=== PATIENT | female | born 1965 | race Caucasian/White ===

== ENCOUNTER 2020-09-08 09:21 | Outpatient (REF) | payer OTHER, SELFPAY ==
[2020-09-08 09:59] LABS: MANUAL DIFF FLAG NO
[2020-09-08 10:11] LABS: Basophils Percent Auto 0.4 % (0-2); Eosinophils Absolute Auto 0.1 X10*3/uL (0.0-0.4); Eosinophils Percent Auto 1.7 % (0-4); Hematocrit 40.7 % (37-47); Hemoglobin 13.3 g/dl (12.0-16.0); Imm Gran Abs Auto 0.02 X10*3/uL (0.00-0.03); Imm Gran Pct Auto 0.4 % (0.0-0.4); Lymphocytes Absolute Auto 2.1 X10*3/uL (1.2-4.9); Lymphocytes Percent Auto 39.9 % (20-40); Mean Corpuscular HGB Conc 32.7 g/dl (31.0-35.0); Mean Corpuscular Hemoglobin 32.4 pg (27.0-33.0); Mean Corpuscular Volume 99.3 fL (80-98); Mean Platelet Volume 9.7 fL (9.4-12.3); Monocytes Absolute Auto 0.3 X10*3/uL (0.1-1.2); Monocytes Percent Auto 6.3 % (2-11); Neutrophils Absolute Auto 2.8 X10*3/uL (2.0-8.3); Neutrophils Percent Auto 51.3 % (45-73); Platelet Count 217 X10*3/uL (160-400); Red Cell Distribution Width 11.5 % (11.0-16.0); White Blood Count 5.4 X10*3/uL (4.8-10.8)
[2020-09-08 10:13] LABS: Estimated Average Glucose 105 mg/dL; Hemoglobin A1c % 5.3 %
[2020-09-08 10:49] LABS: Alanine Aminotransferase 38 U/L (0-31); Albumin Level 4.5 g/dL (3.5-5.0); Alkaline Phosphatase 73 U/L (39-117); Anion Gap 13 (12-20); Aspartate Amino Transferase 22 U/L (5-31); Bilirubin Total 0.7 mg/dL (0.0-1.0); Blood Urea Nitrogen 20 mg/dL (9-16); Carbon Dioxide 28 mmol/L (22-29); Chloride 105 mmol/L (96-108); Cholesterol 175 mg/dL; Estimated Glomerular Filt Rate > 60; Glucose Fasting 107 mg/dL (60-99); HDL Cholesterol 52 mg/dL; LDL Cholesterol Calculated 108 mg/dl; Potassium 4.5 mmol/l (3.3-5.1); Sodium 141 mmol/L (135-145); Total Protein 6.9 g/dL (6.5-8.0); Triglycerides 79 mg/dL
[2020-09-08 11:11] LABS: TSH reflex Free T4 1.04 mIU/mL (0.32-4.0)
== END 2020-09-08 09:22 | disposition home or self-care (01) ==
LOC: HO.LAB 09:21
PROVIDERS: PCP Internal Medicine; Visit Provider Internal Medicine
DX: E78.00 Pure hypercholesterolemia, unspecified (principal); R73.01 Impaired fasting glucose; J45.40 Moderate persistent asthma, uncomplicated; E66.3 Overweight
CPT/HCPCS: 36415; 80053; 80061; 83036; 84443; 85025

== ENCOUNTER 2020-09-17 15:13 | Outpatient (REF) | payer OTHER, SELFPAY ==
--- NOTE | 2020-09-17 15:19 | XR_ITS ---
EXAMINATION: XR CHEST CLINICAL INFORMATION: Chest pain with breathing COMPARISON: Chest radiographs 11/12/2017, 03/13/2017, CT abdomen 07/09/2019 TECHNIQUE: 2 views of the chest were obtained. FINDINGS: The lungs are clear. There is no pneumothorax, pleural reaction, airspace consolidation, or effusion. The heart is normal in size. The vascularity is normal. Convexity right cardiophrenic angle is stable from prior studies and consistent with areolar tissue on CT. The hilar and mediastinal contours are normal. There is no acute bony abnormality. XR/XR chest 2V IMPRESSION: Unremarkable examination.
== END 2020-09-17 15:14 | disposition home or self-care (01) ==
LOC: HO.HMGCX 15:13
PROVIDERS: PCP Internal Medicine; Visit Provider Internal Medicine
DX: R07.1 Chest pain on breathing (principal)
CPT/HCPCS: 71046

== ENCOUNTER 2020-11-17 10:39 | Outpatient (REF) | payer OTHER, SELFPAY ==
--- NOTE | 2020-11-17 10:44 | MM_ITS ---
EXAMINATION: MM SCREENING DIGITAL BREAST TOMOSYNTHESIS, BILATERAL CLINICAL INFORMATION: Screening. Asymptomatic. The lifetime risk of breast cancer based on the Tyrer-Cuzick Model is 9%. COMPARISON: Mammography: 03/18/2019, 02/12/2018, 01/24/2017 TECHNIQUE: Digital breast tomosynthesis is performed in both the craniocaudal and mediolateral oblique views along with computer-aided detection (CAD). Synthesized 2D images are generated from the tomosynthesis. FINDINGS: There are scattered areas of fibroglandular density (ACR BI-RADS breast composition Category b). Breast tissue composition borders on predominantly fatty. The background stromal and fibroglandular densities are stable. There is no interval mass or architectural abnormality or abnormal calcifications. The axilla and skin contours are unremarkable. MM/MM tomosynthesis screening BI IMPRESSION: No mammographic evidence of malignancy. ASSESSMENT: BI-RADS 1: Negative RECOMMENDATION: Routine annual mammography screening. This patient's information was entered into a reminder system with a target due date for their next mammogram.
== END 2020-11-17 10:40 | disposition home or self-care (01) ==
LOC: HO.MAMMO 10:39
PROVIDERS: PCP Internal Medicine; Visit Provider Internal Medicine
DX: Z12.31 Encounter for screening mammogram for malignant neoplasm of breast (principal)
CPT/HCPCS: 77063; 77067

== ENCOUNTER 2020-12-21 08:09 | Outpatient (REF) | payer OTHER, SELFPAY ==
[2020-12-21 11:12] LABS: MANUAL DIFF FLAG NO
[2020-12-21 11:34] LABS: Basophils Percent Auto 0.7 % (0-2); Eosinophils Absolute Auto 0.1 X10*3/uL (0.0-0.4); Eosinophils Percent Auto 1.6 % (0-4); Hematocrit 39.4 % (37-47); Hemoglobin 12.9 g/dl (12.0-16.0); Imm Gran Abs Auto 0.01 X10*3/uL (0.00-0.03); Imm Gran Pct Auto 0.2 % (0.0-0.4); Lymphocytes Percent Auto 45.7 % (20-40); Mean Corpuscular HGB Conc 32.7 g/dl (31.0-35.0); Mean Corpuscular Hemoglobin 32.6 pg (27.0-33.0); Mean Corpuscular Volume 99.5 fL (80-98); Mean Platelet Volume 10.2 fL (9.4-12.3); Monocytes Absolute Auto 0.3 X10*3/uL (0.1-1.2); Monocytes Percent Auto 6.8 % (2-11); Platelet Count 215 X10*3/uL (160-400); Red Blood Count 3.96 X10*6/uL (4.20-5.50); Red Cell Distribution Width 11.8 % (11.0-16.0); White Blood Count 4.4 X10*3/uL (4.8-10.8)
[2020-12-21 11:47] LABS: Alanine Aminotransferase 45 U/L (0-31); Albumin Level 4.5 g/dL (3.5-5.0); Alkaline Phosphatase 69 U/L (39-117); Anion Gap 13 (12-20); Aspartate Amino Transferase 26 U/L (5-31); Bilirubin Total 0.8 mg/dL (0.0-1.0); Blood Urea Nitrogen 27 mg/dL (9-16); Calcium 8.9 mg/dL (8.4-10.2); Carbon Dioxide 27 mmol/L (22-29); Chloride 105 mmol/L (96-108); Cholesterol 190 mg/dL; Estimated Glomerular Filt Rate > 60; Glucose Fasting 110 mg/dL (60-99); HDL Cholesterol 54 mg/dL; LDL Cholesterol Calculated 115 mg/dl; Potassium 4.2 mmol/L (3.3-5.1); Sodium 141 mmol/L (135-145); Triglycerides 106 mg/dL
== END 2020-12-21 08:10 | disposition home or self-care (01) ==
LOC: HO.HMGCLDS 08:09
PROVIDERS: PCP Internal Medicine; Visit Provider Internal Medicine
DX: J45.40 Moderate persistent asthma, uncomplicated (principal); E78.00 Pure hypercholesterolemia, unspecified; R73.01 Impaired fasting glucose
CPT/HCPCS: 36415; 80053; 80061; 85025

== ENCOUNTER 2021-05-13 10:40 | Outpatient (REF) | payer OTHER, SELFPAY ==
[2021-05-13 13:49] LABS: MANUAL DIFF FLAG NO
[2021-05-13 13:53] LABS: Basophils Percent Auto 0.4 % (0-2); Eosinophils Absolute Auto 0.1 X10*3/uL (0.0-0.4); Eosinophils Percent Auto 1.8 % (0-4); Hematocrit 40.8 % (37-47); Hemoglobin 13.2 g/dl (12.0-16.0); Imm Gran Abs Auto 0.01 X10*3/uL (0.00-0.03); Imm Gran Pct Auto 0.2 % (0.0-0.4); Lymphocytes Absolute Auto 2.3 X10*3/uL (1.2-4.9); Lymphocytes Percent Auto 44.9 % (20-40); Mean Corpuscular HGB Conc 32.4 g/dl (31.0-35.0); Mean Corpuscular Hemoglobin 32.1 pg (27.0-33.0); Mean Corpuscular Volume 99.3 fL (80-98); Mean Platelet Volume 10.3 fL (9.4-12.3); Monocytes Absolute Auto 0.3 X10*3/uL (0.1-1.2); Monocytes Percent Auto 5.3 % (2-11); Neutrophils Absolute Auto 2.4 X10*3/uL (2.0-8.3); Neutrophils Percent Auto 47.4 % (45-73); Platelet Count 223 X10*3/uL (160-400); Red Blood Count 4.11 X10*6/uL (4.20-5.50); Red Cell Distribution Width 12.1 % (11.0-16.0); White Blood Count 5.1 X10*3/uL (4.8-10.8)
[2021-05-13 14:04] LABS: Estimated Average Glucose 111 mg/dL; Hemoglobin A1c % 5.5 %
[2021-05-13 14:22] LABS: Alanine Aminotransferase 50 U/L (0-31); Albumin Level 4.5 g/dL (3.5-5.0); Alkaline Phosphatase 73 U/L (39-117); Anion Gap 13 (12-20); Aspartate Amino Transferase 33 U/L (5-31); Bilirubin Total 0.6 mg/dL (0.0-1.0); Blood Urea Nitrogen 11 mg/dL (9-16); Calcium 9.4 mg/dL (8.4-10.2); Carbon Dioxide 24 mmol/L (22-29); Chloride 109 mmol/L (96-108); Cholesterol 182 mg/dL; Estimated Glomerular Filt Rate > 60; Glucose Fasting 111 mg/dL (60-99); HDL Cholesterol 51 mg/dL; LDL Cholesterol Calculated 114 mg/dl; Potassium 4.4 mmol/L (3.3-5.1); Sodium 142 mmol/L (135-145); Total Protein 6.9 g/dL (6.5-8.0); Triglycerides 88 mg/dL
== END 2021-05-13 10:41 | disposition home or self-care (01) ==
LOC: HO.HMGCLDS 10:40
PROVIDERS: PCP Internal Medicine; Visit Provider Internal Medicine
DX: E78.00 Pure hypercholesterolemia, unspecified (principal); J45.40 Moderate persistent asthma, uncomplicated; R73.01 Impaired fasting glucose
CPT/HCPCS: 36415; 80053; 80061; 83036; 85025

== ENCOUNTER 2021-06-11 12:52 | Outpatient (REF) | payer OTHER, SELFPAY | END 2021-06-11 12:53 | disposition home or self-care (01) | LOC: HO.LAB 12:52 | PROVIDERS: Visit Provider Nurse Practitioner Family | DX: Z20.822 Contact with and (suspected) exposure to COVID-19 (principal); J02.9 Acute pharyngitis, unspecified | CPT/HCPCS: U0003; U0005 ==

== ENCOUNTER 2021-08-21 13:25 | Outpatient (REF) | payer OTHER, SELFPAY ==
--- NOTE | 2021-08-21 14:00 | PFT_ITS ---
INDICATION: Asthma. SPIROMETRY: The FEV1 to FVC of 70% with an FEV1 of 2.77 L, which is 94% predicted, and an FVC of 3.95 L, which is 105% predicted. No significant response to bronchodilators noted. The patient does have evidence of small airways disease. LUNG VOLUMES: Total lung capacity 125% predicted with a residual volume of 153% predicted. DIFFUSION CAPACITY: DLCO 85% predicted. COMPARISONS: PFTs from 2018. INTERPRETATION: There is an obstructive ventilatory defect consistent mild COPD. No significant response to bronchodilators noted. Normal maximum voluntary ventilation. The patient does have significant air trapping and hyperinflation due to the COPD. Diffusion capacity is within normal limits. When compared to 2018, the patient has no significant change in the FVC, no significant change in the FEV1, significant increase in the total lung capacity, significant increase in the residual volume, and a trend decrease in the diffusion capacity. Clinical correlation warranted. MD SAHIL Correa/WINNIE / [id number]
== END 2021-08-21 13:26 | disposition home or self-care (01) ==
LOC: HO.RESP 13:25
PROVIDERS: PCP Internal Medicine; Visit Provider Internal Medicine
DX: J45.40 Moderate persistent asthma, uncomplicated (principal)
CPT/HCPCS: 94060; 94727; 94729

== ENCOUNTER 2021-10-09 10:42 | Outpatient (REF) | payer OTHER, SELFPAY ==
[2021-10-15 20:52] LABS: HPV mRNA E6/E7 rflx Not Detected (Not Detected)
== END 2021-10-09 10:43 | disposition home or self-care (01) ==
LOC: HO.LAB 10:42
PROVIDERS: PCP Internal Medicine; Visit Provider Obstetrics & Gynecology
DX: Z01.411 Encounter for gynecological examination (general) (routine) with abnormal findings (principal); Z11.51 Encounter for screening for human papillomavirus (HPV); N95.0 Postmenopausal bleeding; N84.1 Polyp of cervix uteri
CPT/HCPCS: 87624; 88142; 88305

== ENCOUNTER 2021-10-18 15:13 | Outpatient (REF) | payer OTHER, SELFPAY ==
--- NOTE | ~2021-10-18 | US_ITS ---
EXAMINATION: US PELVIC AND TRANSVAGINAL CLINICAL INFORMATION: Postmenopausal bleeding. COMPARISON: CT abdomen and pelvis 07/09/2019. TECHNIQUE: Ultrasound of the pelvis was performed using both transabdominal and transvaginal transducers along with Doppler. Transvaginal imaging is performed due to inadequate visualization transabdominally. FINDINGS: UTERUS: The uterus is anteverted and measures 5.1 x 2.0 x 3.0 cm. The double wall endometrial thickness is 3.3 mm. The uterus is smooth in contour and has normal myometrial echogenicity. No visible fibroid. Nabothian cysts are present in the cervix. ADNEXA: There is no pelvic ascites or fluid collection. The right ovary measures 1.0 x 0.8 x 0.7 cm for a volume of 0.3 mL and appears unremarkable. The left ovary was not seen. US/US pelvic and transvaginal IMPRESSION: A cause for the patient's postmenopausal bleeding is not seen. A small amount of fluid is present in the endometrial canal consistent with bleeding.
== END 2021-10-18 15:14 | disposition home or self-care (01) ==
LOC: HO.HMGCX 15:13
PROVIDERS: PCP Internal Medicine; Visit Provider Obstetrics & Gynecology
DX: N95.0 Postmenopausal bleeding (principal)
CPT/HCPCS: 76830; 76856

== ENCOUNTER → 2021-11-05 15:29 | Outpatient (BNVA) | payer OTHER, SELFPAY | PROVIDERS: PCP Internal Medicine; Visit Provider Obstetrics & Gynecology ==

== ENCOUNTER 2021-11-14 09:29 | Outpatient (REF) | payer OTHER, SELFPAY ==
[2021-11-14 09:51] LABS: MANUAL DIFF FLAG NO
[2021-11-14 09:56] LABS: Basophils Percent Auto 0.6 % (0-2); Eosinophils Absolute Auto 0.2 X10*3/uL (0.0-0.4); Eosinophils Percent Auto 3.2 % (0-4); Hematocrit 40.8 % (37.0-47.0); Hemoglobin 13.6 g/dl (12.0-16.0); Imm Gran Abs Auto 0.01 X10*3/uL (0.00-0.03); Imm Gran Pct Auto 0.2 % (0.0-0.4); Lymphocytes Absolute Auto 2.3 X10*3/uL (1.2-4.9); Lymphocytes Percent Auto 47.5 % (20-40); Mean Corpuscular HGB Conc 33.3 g/dl (31.0-35.0); Mean Corpuscular Hemoglobin 32.6 pg (27.0-33.0); Mean Corpuscular Volume 97.8 fL (80.0-98.0); Mean Platelet Volume 9.7 fL (9.4-12.3); Monocytes Absolute Auto 0.3 X10*3/uL (0.1-1.2); Monocytes Percent Auto 6.3 % (2-11); Neutrophils Percent Auto 42.2 % (45-73); Platelet Count 187 X10*3/uL (160-400); Red Blood Count 4.17 X10*6/uL (4.20-5.50); White Blood Count 4.7 X10*3/uL (4.8-10.8)
[2021-11-14 10:08] LABS: Estimated Average Glucose 114 mg/dL; Hemoglobin A1c % 5.6 %
[2021-11-14 10:13] LABS: Alanine Aminotransferase 58 U/L (0-31); Albumin Level 4.4 g/dL (3.5-5.0); Alkaline Phosphatase 70 U/L (39-117); Anion Gap 9 (12-20); Aspartate Amino Transferase 28 U/L (5-31); Bilirubin Total 1.1 mg/dL (0.0-1.0); Blood Urea Nitrogen 17 mg/dL (9-16); Calcium 9.6 mg/dL (8.4-10.2); Carbon Dioxide 31 mmol/L (22-29); Chloride 105 mmol/L (96-108); Cholesterol 193 mg/dL; Estimated Glomerular Filt Rate > 60; Glucose Fasting 116 mg/dL (60-99); HDL Cholesterol 45 mg/dL; LDL Cholesterol Calculated 112 mg/dl; Potassium 4.5 mmol/L (3.3-5.1); Sodium 140 mmol/L (135-145); Total Protein 7.2 g/dL (6.5-8.0); Triglycerides 182 mg/dL
[2021-11-14 10:35] LABS: TSH reflex Free T4 1.11 uIU/mL (0.32-4.0); Vitamin D 25-OH Total 35.6 ng/mL (>30)
[2021-11-14 12:57] LABS: Appearance Urine CLEAR; Color Urine YELLOW; Glucose Urine UA NEG (NEG); Leukocyte Esterase Urine 1+ (NEG); Nitrite Urine NEG (NEG); PH 7.5 (5.0-8.0); Specific Gravity - Urine 1.015 (1.005-1.025); UACC Culture Trigger YES; Urine Blood NEG (NEG); Urine Ketones NEG (NEG); Urine Protein NEG (NEG-TRACE)
[2021-11-14 13:22] LABS: Bacteria Urine TRACE /LPF; RBC Urine 0-2 /HPF (0)
== END 2021-11-14 09:30 | disposition home or self-care (01) ==
LOC: HO.LAB 09:29
PROVIDERS: PCP Internal Medicine; Visit Provider Internal Medicine
DX: Z00.00 Encounter for general adult medical examination without abnormal findings (principal); E78.00 Pure hypercholesterolemia, unspecified; E55.9 Vitamin D deficiency, unspecified; I10 Essential (primary) hypertension; R73.01 Impaired fasting glucose
CPT/HCPCS: 36415; 80053; 80061; 81001; 81003; 82306; 83036; 84443; 85025; 87086

== ENCOUNTER 2021-11-18 15:55 | Outpatient (REF) | payer OTHER, SELFPAY ==
--- NOTE | ~2021-11-18 | MM_ITS ---
EXAMINATION: MM SCREENING DIGITAL BREAST TOMOSYNTHESIS, BILATERAL CLINICAL INFORMATION: Screening. Asymptomatic. The lifetime risk of breast cancer based on the Tyrer-Cuzick Model is 10%. COMPARISON: Mammography: 11/17/2020, 03/18/2019, 02/12/2018 TECHNIQUE: Digital breast tomosynthesis is performed in both the craniocaudal and mediolateral oblique views along with computer-aided detection (CAD). Synthesized 2D images are generated from the tomosynthesis. FINDINGS: There are scattered areas of fibroglandular density (ACR BI-RADS breast composition Category b). There are no significant masses, abnormal calcifications, or other abnormalities. Breast tissue composition borders on predominantly fatty. Background stromal markings are stable. MM/MM tomosynthesis screening BI IMPRESSION: No mammographic evidence of malignancy. ASSESSMENT: BI-RADS 1: Negative RECOMMENDATION: Routine annual mammography screening. This patient's information was entered into a reminder system with a target due date for their next mammogram.
== END 2021-11-18 15:56 | disposition home or self-care (01) ==
LOC: HO.MAMMO 15:55
PROVIDERS: PCP Internal Medicine; Visit Provider Obstetrics & Gynecology
DX: Z12.31 Encounter for screening mammogram for malignant neoplasm of breast (principal)
CPT/HCPCS: 77063; 77067

== ENCOUNTER 2021-12-05 14:20 | Outpatient (REF) | payer OTHER, SELFPAY ==
--- NOTE | ~2021-12-05 | MM_ITS ---
EXAMINATION: BONE DENSITOMETRY CLINICAL INDICATION: Asymptomatic menopausal state. COMPARISON: Baseline BD dated 03/16/2013. TECHNIQUE: Using a [employer] DXA System (software version: 13.1) manufactured by [employer], dual-energy x-ray absorptiometry was performed of the lumbar spine and left hip. The images are of good technical quality. Summary results are attached. FINDINGS: AP SPINE L1-L4: Current: BMD 1.136 g/cm2, Z-score -0.1, T-score -0.4, normal, 0.6% increase from baseline (<5% change is not significant). Baseline: BMD 1.129 g/cm2. LEFT FEMUR, NECK: Current: BMD 0.867 g/cm2, Z-score -0.6, T-score -1.2, osteopenia. Baseline: BMD 0.905 g/cm2. LEFT FEMUR, TOTAL: Current: BMD 1.037 g/cm2, Z-score 0.5, T-score 0.2, normal, 2.5% increase from baseline (<5% change is not significant). Baseline: BMD 1.012 g/cm2. IDENTIFIED RISK FACTORS: Alcoholism, height loss, history of fracture (adult), menopause. HISTORY OF FRACTURE: Wrist. MEDICATIONS: Calcium supplements or multivitamin, vitamin D. MM/XR DEXA axial skeleton IMPRESSION: 1. DIAGNOSIS: Osteopenia based on the lowest T-score value of -1.2 in the femoral neck applying World Health Organization criteria. 2. 10-YEAR FRACTURE RISK PREDICTION, FRAX: Major osteoporotic fracture (clinical spine, forearm, hip or shoulder) 13.7%. Hip fracture 1.2%. 3. Treatment Recommendations: NOF guidelines recommend consideration for treatment in postmenopausal women and men age 50 and older presenting with the following: -A hip or vertebral (clinical or morphometric) fracture. -T-score less than or equal to -2.5 at the femoral neck or spine after appropriate evaluation to exclude secondary causes. -Low bone mass at the hip or spine and a 10-year fracture probability by FRAX of greater than or equal to 3% for hip fracture or greater than or equal to 20% for major osteoporotic fracture based on the [place] adapted WHO algorithm. 4. Other Recommendations: All treatment decisions require clinical judgment and consideration of individual patient factors, including patient preferences, comorbidities, previous drug use, risk factors not captured in the FRAX model (e.g. frailty, falls, vitamin D deficiency, increased bone turnover, interval significant decline in bone density) and possible under or overestimation of fracture risk by FRAX. Additional medical evaluation for secondary cause of low bone mineral density may be appropriate. FUTURE SCAN RECOMMENDATION: People with diagnosed cases of osteoporosis or at high risk for fracture should have regular bone mineral density tests. For patients eligible for Medicare, routine testing is allowed once every 2 years. The testing frequency can be increased to one year for patients who have rapidly progressing disease, those who are receiving or discontinuing medical therapy to restore bone mass, or have additional risk factors.
== END 2021-12-05 14:21 | disposition home or self-care (01) ==
LOC: HO.MAMMO 14:20
PROVIDERS: PCP Internal Medicine; Visit Provider Internal Medicine
DX: Z78.0 Asymptomatic menopausal state (principal); F10.20 Alcohol dependence, uncomplicated; R29.890 Loss of height; Z79.899 Other long term (current) drug therapy
CPT/HCPCS: 77080

== ENCOUNTER 2022-03-25 09:38 | Outpatient (REF) | payer OTHER, SELFPAY ==
[2022-03-25 10:02] LABS: MANUAL DIFF FLAG NO
[2022-03-25 10:18] LABS: Basophils Percent Auto 0.7 % (0-2); Eosinophils Absolute Auto 0.1 X10*3/uL (0.0-0.4); Eosinophils Percent Auto 2.6 % (0-4); Hematocrit 39.2 % (37.0-47.0); Imm Gran Abs Auto 0.01 X10*3/uL (0.00-0.03); Imm Gran Pct Auto 0.2 % (0.0-0.4); Lymphocytes Absolute Auto 1.9 X10*3/uL (1.2-4.9); Lymphocytes Percent Auto 44.7 % (20-40); Mean Corpuscular HGB Conc 33.2 g/dl (31.0-35.0); Mean Corpuscular Hemoglobin 31.9 pg (27.0-33.0); Mean Corpuscular Volume 96.3 fL (80.0-98.0); Mean Platelet Volume 9.7 fL (9.4-12.3); Monocytes Absolute Auto 0.3 X10*3/uL (0.1-1.2); Monocytes Percent Auto 6.6 % (2-11); Neutrophils Absolute Auto 1.9 x10*3/uL (2.0-8.3); Neutrophils Percent Auto 45.2 % (45-73); Platelet Count 210 X10*3/uL (160-400); Red Blood Count 4.07 X10*6/uL (4.20-5.50); Red Cell Distribution Width 11.9 % (11.0-16.0); White Blood Count 4.3 X10*3/uL (4.8-10.8)
[2022-03-25 10:41] LABS: Alanine Aminotransferase 28 U/L (0-31); Albumin Level 4.3 g/dL (3.5-5.0); Alkaline Phosphatase 64 U/L (39-117); Anion Gap 12 (12-20); Aspartate Amino Transferase 22 U/L (5-31); Bilirubin Total 0.8 mg/dL (0.0-1.0); Blood Urea Nitrogen 19 mg/dL (9-16); Calcium 9.5 mg/dL (8.4-10.2); Carbon Dioxide 26 mmol/L (22-29); Chloride 106 mmol/L (96-108); Cholesterol 179 mg/dL; Estimated Glomerular Filt Rate > 60; Glucose Fasting 113 mg/dL (60-99); HDL Cholesterol 46 mg/dL; LDL Cholesterol Calculated 110 mg/dl; Potassium 4.6 mmol/L (3.3-5.1); Sodium 139 mmol/L (135-145); Total Protein 6.8 g/dL (6.5-8.0); Triglycerides 118 mg/dL
[2022-03-25 10:49] LABS: Estimated Average Glucose 114 mg/dL; Hemoglobin A1c % 5.6 %
[2022-03-25 11:06] LABS: Vitamin D 25-OH Total 29.3 ng/mL (>30)
== END 2022-03-25 09:39 | disposition home or self-care (01) ==
LOC: HO.LAB 09:38
PROVIDERS: PCP Internal Medicine; Visit Provider Internal Medicine
DX: E78.00 Pure hypercholesterolemia, unspecified (principal); E55.9 Vitamin D deficiency, unspecified; R73.01 Impaired fasting glucose; J45.40 Moderate persistent asthma, uncomplicated
CPT/HCPCS: 36415; 80053; 80061; 82306; 83036; 84443; 85025

== ENCOUNTER → 2022-04-30 07:51 | Outpatient (REF) | payer OTHER, SELFPAY ==
--- NOTE | 2022-04-30 07:57 | ECG_ITS ---
Test Reason : CHEST PAIN Blood Pressure : / mmHG Vent. Rate : 057 BPM Atrial Rate : 057 BPM P-R Int : 150 ms QRS Dur : 088 ms QT Int : 434 ms P-R-T Axes : 063 026 039 degrees QTc Int : 422 ms Sinus bradycardia Otherwise normal ECG When compared to the previous EKG of No significant changes seen Referred By: Mary Jacob Electronically Signed By:JT MONTIEL MD
== END ==
LOC: HO.CARD 07:51
PROVIDERS: PCP Internal Medicine; Visit Provider Nurse Practitioner Family
DX: R00.1 Bradycardia, unspecified (principal)
CPT/HCPCS: 93005

== ENCOUNTER 2022-07-09 09:58 | Outpatient (REF) | payer OTHER, SELFPAY ==
[2022-07-09 12:10] LABS: Alanine Aminotransferase 41 U/L (0-31); Albumin Level 4.4 g/dL (3.5-5.0); Alkaline Phosphatase 69 U/L (39-117); Anion Gap 14 (12-20); Aspartate Amino Transferase 25 U/L (5-31); Bilirubin Total 1.2 mg/dL (0.0-1.0); Blood Urea Nitrogen 26 mg/dL (9-16); Calcium 9.4 mg/dL (8.4-10.2); Carbon Dioxide 26 mmol/L (22-29); Chloride 104 mmol/L (96-108); Cholesterol 189 mg/dL; Estimated Glomerular Filt Rate 55; Glucose Fasting 115 mg/dL (60-99); HDL Cholesterol 48 mg/dL; LDL Cholesterol Calculated 104 mg/dl; Potassium 4.3 mmol/L (3.3-5.1); Sodium 140 mmol/L (135-145); Total Protein 7.1 g/dL (6.5-8.0); Triglycerides 185 mg/dL
[2022-07-09 12:19] LABS: Vitamin D 25-OH Total 36.7 ng/mL (>30)
[2022-07-09 12:27] LABS: Folate 17.6 ng/mL (> or = 4.0); Vitamin B12 381 pg/mL (200-900)
== END 2022-07-09 09:59 | disposition home or self-care (01) ==
LOC: HO.HMGCLDS 09:58
PROVIDERS: PCP Internal Medicine; Visit Provider Nurse Practitioner Family
DX: R79.89 Other specified abnormal findings of blood chemistry (principal); J45.40 Moderate persistent asthma, uncomplicated; R73.01 Impaired fasting glucose; E78.00 Pure hypercholesterolemia, unspecified
CPT/HCPCS: 36415; 80053; 80061; 82306; 82607; 82746

== ENCOUNTER 2022-08-19 08:13 | Outpatient (REF) | payer OTHER, SELFPAY ==
[2022-08-19 12:02] LABS: Anion Gap 17 (12-20); Blood Urea Nitrogen 18 mg/dL (9-16); Calcium 9.5 mg/dL (8.4-10.2); Carbon Dioxide 25 mmol/L (22-29); Chloride 102 mmol/L (96-108); Estimated Glomerular Filt Rate > 60; Glucose Random 132 mg/dL (60-115); Potassium 3.9 mmol/L (3.3-5.1); Sodium 140 mmol/L (135-145)
== END 2022-08-19 08:14 | disposition home or self-care (01) ==
LOC: HO.HMGCLDS 08:13
PROVIDERS: PCP Internal Medicine; Visit Provider Internal Medicine
DX: R07.89 Other chest pain (principal)
CPT/HCPCS: 36415; 80048

== ENCOUNTER 2022-10-27 12:56 | Outpatient (REF) | payer OTHER, SELFPAY ==
--- NOTE | ~2022-10-27 | XR_ITS ---
EXAMINATION: XR RIBS, LEFT CLINICAL INFORMATION: Pleurodynia COMPARISON: Chest x-ray 09/17/2020 TECHNIQUE: 3 views of the left ribs were obtained. FINDINGS: Lungs are clear. No consolidation, pneumothorax, or pleural effusion. The cardiomediastinal silhouette and pulmonary vasculature are normal. No acute displaced rib fracture or other acute osseous injury. Mild S-shaped curvature of the thoracic spine noted. XR/XR ribs LT min 3V w CXR1V IMPRESSION: 1. No acute pulmonary process. 2. No acute displaced rib fracture.
== END 2022-10-27 12:57 | disposition home or self-care (01) ==
LOC: HO.HMGCX 12:56
PROVIDERS: PCP Internal Medicine; Visit Provider Physician Assistant
DX: R07.81 Pleurodynia (principal)
CPT/HCPCS: 71101

== ENCOUNTER 2022-11-24 15:42 | Outpatient (REF) | payer OTHER, SELFPAY ==
--- NOTE | ~2022-11-24 | MM_ITS ---
EXAMINATION: MM SCREENING DIGITAL BREAST TOMOSYNTHESIS, BILATERAL CLINICAL INFORMATION: Screening. Asymptomatic. The lifetime risk of breast cancer based on the Tyrer-Cuzick Model is 10.0%. COMPARISON: Mammography: November 18, 2021 and studies dating back to December 22, 2015 TECHNIQUE: Digital breast tomosynthesis is performed in both the craniocaudal and mediolateral oblique views along with computer-aided detection (CAD). Synthesized 2D images are generated from the tomosynthesis. FINDINGS: There are scattered areas of fibroglandular density (ACR BI-RADS breast composition Category b). There are no significant masses, abnormal calcifications, or other abnormalities. MM/MM tomosynthesis screening BI IMPRESSION: No significant changes from prior exam. ASSESSMENT: BI-RADS 1: Negative RECOMMENDATION: Routine annual mammography screening. This patient's information was entered into a reminder system with a target due date for their next mammogram.
== END 2022-11-24 15:43 | disposition home or self-care (01) ==
LOC: HO.MAMMO 15:42
PROVIDERS: PCP Internal Medicine; Visit Provider Internal Medicine
DX: Z12.31 Encounter for screening mammogram for malignant neoplasm of breast (principal)
CPT/HCPCS: 77063; 77067

== ENCOUNTER 2022-12-10 07:06 | Outpatient (REF) | payer OTHER, SELFPAY ==
[2022-12-10 12:30] LABS: Alanine Aminotransferase 29 U/L (0-31); Albumin Level 4.2 g/dL (3.5-5.0); Alkaline Phosphatase 74 U/L (39-117); Anion Gap 13 (12-20); Aspartate Amino Transferase 22 U/L (5-31); Blood Urea Nitrogen 23 mg/dL (9-16); Calcium 9.4 mg/dL (8.4-10.2); Carbon Dioxide 28 mmol/L (22-29); Chloride 103 mmol/L (96-108); Cholesterol 177 mg/dL; Estimated Glomerular Filt Rate > 60; Glucose Fasting 107 mg/dL (60-99); HDL Cholesterol 47 mg/dL; LDL Cholesterol Calculated 102 mg/dl; Potassium 4.2 mmol/L (3.3-5.1); Sodium 140 mmol/L (135-145); Total Protein 6.7 g/dL (6.5-8.0); Triglycerides 140 mg/dL
== END 2022-12-10 07:07 | disposition home or self-care (01) ==
LOC: HO.HMGCLDS 07:06
PROVIDERS: PCP Internal Medicine; Visit Provider Nurse Practitioner Family
DX: E78.00 Pure hypercholesterolemia, unspecified (principal); R73.01 Impaired fasting glucose
CPT/HCPCS: 36415; 80053; 80061

== ENCOUNTER 2023-04-04 09:03 | Outpatient (REF) | payer OTHER, SELFPAY ==
[2023-04-04 11:07] LABS: MANUAL DIFF FLAG NO
[2023-04-04 11:10] LABS: Basophils Percent Auto 0.7 % (0-2); Eosinophils Absolute Auto 0.1 X10*3/uL (0.0-0.4); Eosinophils Percent Auto 2.9 % (0-4); Hematocrit 39.3 % (37.0-47.0); Hemoglobin 13.1 g/dl (12.0-16.0); Lymphocytes Absolute Auto 1.9 X10*3/uL (1.2-4.9); Lymphocytes Percent Auto 42.1 % (20-40); Mean Corpuscular HGB Conc 33.3 g/dl (31.0-35.0); Mean Corpuscular Hemoglobin 32.3 pg (27.0-33.0); Mean Platelet Volume 9.8 fL (9.4-12.3); Monocytes Absolute Auto 0.3 X10*3/uL (0.1-1.2); Monocytes Percent Auto 5.7 % (2-11); Neutrophils Absolute Auto 2.2 x10*3/uL (2.0-8.3); Neutrophils Percent Auto 48.6 % (45-73); Platelet Count 223 X10*3/uL (160-400); Red Blood Count 4.05 X10*6/uL (4.20-5.50); Red Cell Distribution Width 12.2 % (11.0-16.0); White Blood Count 4.5 X10*3/uL (4.8-10.8)
[2023-04-04 11:25] LABS: Estimated Average Glucose 114 mg/dL; Hemoglobin A1c % 5.6 %
[2023-04-04 11:40] LABS: Alanine Aminotransferase 31 U/L (0-31); Albumin Level 4.2 g/dL (3.5-5.0); Alkaline Phosphatase 73 U/L (39-117); Anion Gap 7 (12-20); Aspartate Amino Transferase 19 U/L (5-31); Bilirubin Total 0.9 mg/dL (0.0-1.0); Blood Urea Nitrogen 17 mg/dL (9-16); Calcium 9.2 mg/dL (8.4-10.2); Carbon Dioxide 31 mmol/L (22-29); Chloride 107 mmol/L (96-108); Cholesterol 168 mg/dL; Estimated Glomerular Filt Rate > 60; Glucose Fasting 109 mg/dL (60-99); HDL Cholesterol 46 mg/dL; LDL Cholesterol Calculated 97 mg/dl; Potassium 4.4 mmol/L (3.3-5.1); Sodium 141 mmol/L (135-145); Total Protein 6.6 g/dL (6.5-8.0); Triglycerides 127 mg/dL
[2023-04-04 11:55] LABS: TSH reflex Free T4 1.05 uIU/mL (0.32-4.0); Vitamin D 25-OH Total 37.6 ng/mL (>30)
[2023-04-04 13:52] LABS: Appearance Urine Clear; Color Urine Yellow; Glucose Urine UA Negative (Negative); Leukocyte Esterase Urine Trace (Negative); Nitrite Urine Negative (Negative); PH 7.5 (5.0-9.0); UMIC TRIGGER UACC YES; Urine Blood Negative (Negative); Urine Ketones Negative (Negative); Urine Protein Negative (Neg-Trace)
[2023-04-04 13:58] LABS: Bacteria Urine None Seen (None Seen); Hyaline Casts Urine 0-2 /LPF (0-2); RBC Urine 0-2 /HPF (0-2); Squamous Epithelial Cell Urine 0-2 /HPF (0-2); WBC Urine 0-5 /HPF (0-5)
== END 2023-04-04 09:04 | disposition home or self-care (01) ==
LOC: HO.HMGCLDS 09:03
PROVIDERS: PCP Internal Medicine; Visit Provider Internal Medicine
DX: E55.9 Vitamin D deficiency, unspecified (principal); R30.0 Dysuria; E78.00 Pure hypercholesterolemia, unspecified; R73.01 Impaired fasting glucose; I10 Essential (primary) hypertension
CPT/HCPCS: 36415; 80053; 80061; 81001; 82306; 83036; 84443; 85025

== ENCOUNTER 2023-08-07 06:16 | Outpatient (REF) | payer OTHER, SELFPAY ==
[2023-08-07 11:19] LABS: MANUAL DIFF FLAG NO
[2023-08-07 11:47] LABS: Estimated Average Glucose 111 mg/dL; Hemoglobin A1c % 5.5 % (<6.0)
[2023-08-07 11:51] LABS: Basophils Percent Auto 0.8 % (0-2); Eosinophils Absolute Auto 0.1 X10*3/uL (0.0-0.4); Eosinophils Percent Auto 2.2 % (0-4); Hematocrit 39.7 % (37.0-47.0); Imm Gran Abs Auto 0.01 X10*3/uL (0.00-0.03); Imm Gran Pct Auto 0.3 % (0.0-0.4); Lymphocytes Absolute Auto 1.2 X10*3/uL (1.2-4.9); Lymphocytes Percent Auto 32.7 % (20-40); Mean Corpuscular HGB Conc 32.7 g/dl (31.0-35.0); Mean Corpuscular Hemoglobin 32.5 pg (27.0-33.0); Mean Corpuscular Volume 99.3 fL (80.0-98.0); Mean Platelet Volume 10.3 fL (9.4-12.3); Monocytes Absolute Auto 0.5 X10*3/uL (0.1-1.2); Monocytes Percent Auto 12.8 % (2-11); Neutrophils Absolute Auto 1.8 x10*3/uL (2.0-8.3); Neutrophils Percent Auto 51.2 % (45-73); Platelet Count 185 X10*3/uL (160-400); Red Cell Distribution Width 12.1 % (11.0-16.0); White Blood Count 3.6 X10*3/uL (4.8-10.8)
[2023-08-07 12:06] LABS: Alanine Aminotransferase 39 U/L (0-31); Albumin Level 4.4 g/dL (3.5-5.0); Alkaline Phosphatase 76 U/L (39-117); Anion Gap 11 (12-20); Aspartate Amino Transferase 25 U/L (5-31); Bilirubin Total 0.7 mg/dL (0.0-1.0); Blood Urea Nitrogen 18 mg/dL (9-16); Calcium 9.6 mg/dL (8.4-10.2); Carbon Dioxide 25 mmol/L (22-29); Chloride 107 mmol/L (96-108); Cholesterol 155 mg/dL (<200); Estimated Glomerular Filt Rate > 60; Glucose Fasting 121 mg/dL (60-99); HDL Cholesterol 46 mg/dL (>40); LDL Cholesterol Calculated 78 mg/dL (<100); Potassium 4.2 mmol/L (3.3-5.1); Sodium 139 mmol/L (135-145); Total Protein 7.2 g/dL (6.5-8.0); Triglycerides 159 mg/dL (<150)
[2023-08-07 12:32] LABS: TSH reflex Free T4 1.45 uIU/mL (0.32-4.0); Vitamin D 25-OH Total 51.1 ng/mL (>30)
== END 2023-08-07 06:17 | disposition home or self-care (01) ==
LOC: HO.HMGCLDS 06:16
PROVIDERS: PCP Internal Medicine; Visit Provider Internal Medicine
DX: E78.00 Pure hypercholesterolemia, unspecified (principal); I10 Essential (primary) hypertension; E55.9 Vitamin D deficiency, unspecified; R73.01 Impaired fasting glucose
CPT/HCPCS: 36415; 80053; 80061; 82306; 83036; 84443; 85025

== ENCOUNTER 2023-08-11 15:43 | Outpatient (AMB) | payer OTHER, SELFPAY ==
[2023-08-11 15:46] VITALS: BP 116/80; PULSE 69; O2SAT 96; BMI 29.8
--- NOTE | 2023-08-11 15:46 | MHC.PC.OV ---
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: No Accompanied by: Self / Same As Patient Allergies No Known Allergies [No Known Allergies*] Allergy (Verified 08/11/23 16:58) Medication List - Last Reconciled 08/11/23 by Rodo Menon MD albuterol sulfate 90 mcg/actuation 2 puffs inhalation Q6H PRN atorvastatin 20 mg PO DAILY 90 days fluticasone propion-salmeterol 250-50 mcg/dose 1 ea inhalation Q12H Tobacco use date assessed: 08/11/23 Dental Screening Dental Screen Date: 08/11/23 Did you have a dental visit in the last 12 months?: Yes Did you have a dental problem in the last 6 months where you did not have access to dental care?: No Was dental information given to patient?: Patient has dentist HPI PE HPI Details Patient comes in today for her annual physical examination States that she has been experiencing symptoms of cough and congestion for about 1 week now - thinks that her symptoms may be due to the changing of the seasons Relates (+) on and off non-productive cough, which feels worse at night States that she tested herself for COVID yesterday and came out negative Relates (+) mild sore throat but denies any fever, headaches or dizziness Denies any chest pains; has been experiencing some ZAYAS, mild shortness of breath and chest congestion/tightness lately - states that she has been using her Albuterol inhaler more often lately with (+) relief of her symptoms No nausea/vomiting, no abdominal pain No change in bowel habits noted Denies any acute urinary symptoms Had her follow up labs done a few days ago - to discuss her results She had her annual mammogram done back in November 2022 and is scheduled for her annual pap smear and 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 October 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 She will be due for her repeat colonoscopy in 2024 - was done in January 2015 [facility] Medical History Osteopenia Obesity (BMI 30-39.9) Elevated alanine aminotransferase (ALT) level Impaired fasting glucose Moderate persistent asthma without complication Pure hypercholesterolemia Surgical History Hx of colonoscopy (~01/2015) History of section History of removal of cyst History of umbilical hernia repair History of eye surgery Family History Father CAD (coronary artery disease) Hypertension CVD (cardiovascular disease) Mother Hypertension CVD (cardiovascular disease) Brother Alive and well Paternal Aunt Cervical cancer Heart disease Maternal Aunt Heart disease Social History Housing: House Alcohol intake: current Alcohol intake frequency: a few times a week Alcohol type: wine Patient Tobacco Use Status: Former Tobacco user e-Cigarette/Vaping Use: Never Used Second Hand Smoke Exposure: Yes service: No Current occupational status: employed Current occupational exposures/hazards: No Cognitive needs: No Hearing needs: No Vision needs: No Questionnaire PHQ-9 Over the last 2 weeks, how often have you been bothered by any of the following problems? 1. Little interest or pleasure in doing things: not at all 2. Feeling down, depressed, or hopeless: not at all 3. Trouble falling or staying asleep, or sleeping too much: not at all 4. Feeling tired or having little energy: not at all 5. Poor appetite or overeating: not at all 6. Feeling bad about yourself - or that you are a failure or have let yourself or your family down: not at all 7. Trouble concentrating on things, such as reading the newspaper or watching television: not at all 8. Moving or speaking so slowly that other people could have noticed. Or the opposite - being so fidgety or restless that you have been moving around a lot more than usual: not at all 9. Thoughts that you would be better off or of hurting yourself in some way: not at all Total score: 0 Depression Screening Interpretation: Negative 72249 - PHQ-9 Billing: Yes Source: Developed by Drs. Zhou Roldan, Katiuska Horn, Brandyn Rizvi and colleagues, with an educational leeann from [employer]. Thrive Questionnaire Date Thrive assessed: 08/11/23 I am a: Patient What is your living situation today?: I have a steady place to live Within the past 12 months, did the food you bought not last and you didn't have the money to get more?: Never true Within the past 12 months, did you worry whether your food would run out before you got money to buy more?: Never true Do you have trouble paying for medicines?: No Do you have trouble getting transportation to medical appointments?: No Do you have trouble paying your heating and electricity bill?: No Do you have trouble taking care of your child, family member or friend?: No Do you have trouble with day-to-day activities such as bathing, preparing meals, shopping, managing finances, etc.?: No Are you currently unemployed and looking for a job?: No Are you interested in more education?: No Please select the resources that you would like help with: None Currently or been in a relationship where the following occur: no concerns reported AUDIT C Alcohol Use Questionnaire (AUDIT-C) 1. How often do you have a drink containing alcohol?: 2-3 times a week 2. How many drinks containing alcohol do you have on a typical day when you are drinking?: 1 or 2 3. How often do you have six or more drinks on one occasion?: Never Total Score: 3 Score Reviewed/Action Taken: Yes TAHIR-7 AMB Questionnaire TAHIR-7 Date TAHIR - 7 assessed: 08/11/23 Feeling nervous, anxious, or on edge: 1 = Several days Not being able to stop or control worryin = Not at all Worrying too much about different things: 0 = Not at all Trouble relaxin = Not at all Being so restless that it is hard to sit still: 0 = Not at all Becoming easily annoyed or irritable: 0 = Not at all Feeling afraid as if something awful might happen: 0 = Not at all Total TAHIR-7 score (0-4 normal; 5-9 mild; 10-14 moderate; 15-21 severe): 1 Source: Developed by Drs. Zhou Roldan, Katiuska Horn, Brandyn Rizvi and colleagues, with an educational leeann from [employer]. TAHIR-7 Assessment Billing TAHIR-7 Assessment Tool: TAHIR-7 Assessment 51069 Review of Systems Const Denies chills, Reports fatigue (mild), Denies fever(s) and Denies headache(s) Eyes Denies blurry vision, Denies change in vision, Denies irritation and Denies itchy eyes ENT Denies dysphagia, Denies dizziness, Denies otalgia, Denies headache(s), Reports nasal congestion (mild), Denies neck pain, Denies odynophagia, Denies sinus pain and Reports sore throat (mild) Card Denies chest pain, Denies irregular heart rhythm, Denies palpitations and Reports dyspnea on exertion (mild) Resp Reports chest congestion (but chest feels tight often), Reports cough (on and off - non-productive), Denies pain on inspiration, Reports dyspnea on exertion (mild) and Reports wheezing (at times) GI Denies abdominal pain, Denies constipation, Denies dysphagia, Denies heartburn, Denies diarrhea, Denies nausea, Denies odynophagia and Denies vomiting Denies hematuria, Denies urinary frequency, Denies dysuria, Denies urinary incontinence and Denies urinary urgency Musc Denies back pain, Denies arthralgias, Denies joint swelling and Denies neck pain Skin/Breast Denies breast pain, Denies breast mass, Denies change in pigmentation, Denies lesions, Denies rash and Denies unusual bruising Neuro Denies dizziness and Denies headache(s) Psych Denies anxiety and Denies depression Endo Reports fatigue (mild) and Denies palpitations Jordy/Lymph Denies easy bruising Aller/Immun Denies itchy eyes and Reports wheezing (at times) Physical exam (Primary Care) Vital Signs: Last Vital Signs Pulse 69 08/11/23 15:46 BP 116/80 08/11/23 15:46 Pulse Ox 96 08/11/23 15:46 Oxygen Delivery Method Room Air 08/11/23 15:46 BMI result Body Mass Index 29.8 Tobacco/Smoking Status: Tobacco use Status Tobacco use date assessed 08/11/23 08/11/23 15:48 Patient Tobacco Use Status Former Tobacco user 08/11/23 15:48 e-Cigarette/Vaping Use Never Used 08/11/23 15:48 PHQ-9: PHQ-9 Score PHQ-9: Total score 0 08/12/23 03:42 Depression Screening Interpretation: Negative Thrive Assessment: Date of Thrive Assessment Date Thrive assessed 08/11/23 08/11/23 15:48 Currently or been in a relationship where the following occur: no concerns reported Const General: no acute distress, alert and awake Orientation/consciousness: [facility]: Yes normocephalic and Yes atraumatic Ears: external ears normal, TM's normal bilaterally and EAC's normal General nose exam: No nasal discharge present Face and sinus: Yes normal facial exam and Yes sinuses nontender Teeth and gingiva: dentition normal Throat: Yes posterior oropharynx normal and Yes tonsils normal (no TP congestion) Eyes Eyelids: Yes eyelids normal Conjunctivae: conjunctivae normal Pupils: Equal, round and reactive pupils present EOM: EOMs intact bilaterally Neck Neck: Yes no lymphadenopathy and Yes supple Thyroid: Thyroid normal Resp Auscultation: no crackles, no rales, rhonchi (scattered) throughout and wheezes (occasional) expiratory wheezes Cardio Rate: regular rate Rhythm: regular rhythm Heart sounds: no murmurs GI Palpation (GI): Soft to palpation, nontender and No hepatosplenomegaly present Auscultation: normal bowel sounds General: Yes no CVA tenderness Back/Spine/Pelvis Back: no CVA tenderness Thoracic/Lumbar Spine: thoracic and lumbar spine normal to inspection Skin Lesions: no lesions Rashes: no rashes Neuro General: patient oriented x3, moves all extremities, no focal motor deficits and CN's II-XI intact bilaterally Cranial nerves: Yes Equal, round and reactive pupils present Cognition (Neuro): normal cognition Gait exam (Neuro): Normal gait present Extrem General: Yes no clubbing, cyanosis or edema Results Reviewed Results Reviewed: Laboratory Tests 04/04/23 08/07/23 08/07/23 11:10 06:21 06:21 WBC 3.6 L Hgb 13.0 Hct 39.7 Plt Count 185 Sodium Potassium Creatinine Estimated GFR Fasting Glucose Hemoglobin A1c % 5.5 Calcium AST ALT Triglycerides Cholesterol LDL Cholesterol, Calc HDL Cholesterol 25-OH Vitamin D Total TSH Urine pH 7.5 Ur Specific [place] 1.010 Urine Protein Negative Urine Glucose (UA) Negative Urine Blood Negative 08/07/23 08/07/23 08/07/23 06:24 06:24 06:24 WBC Hgb Hct Plt Count Sodium 139 Potassium 4.2 Creatinine 0.85 Estimated GFR > 60 Fasting Glucose 121 H Hemoglobin A1c % Calcium 9.6 AST 25 ALT 39 H Triglycerides 159 H Cholesterol 155 LDL Cholesterol, Calc 78 HDL Cholesterol 46 25-OH Vitamin D Total 51.1 TSH 1.45 Urine pH Ur Specific [place] Urine Protein Urine Glucose (UA) Urine Blood Assessment and Plan Assessment & Plan (1) Annual physical exam: Code(s): Z00.00 - Encounter for general adult medical examination without abnormal findings Plan: Results of her labs done a few days ago reviewed and discussed with patient She is up-to-date with her preventive and cancer screenings - repeat colonoscopy will be due in 2024, had her annual mammogram last done in 11/2022 and is 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 Yi (2) Asthma exacerbation: Code(s): J45.901 - Unspecified asthma with (acute) exacerbation Qualifiers: Asthma severity: moderate Asthma persistence: persistent Qualified Code(s): J45.41 - Moderate persistent asthma with (acute) exacerbation Plan: Will start patient on empiric Abx Tx with Azithromycin prakash as well as oral Prednisone taper for a few days to help relieve her respiratory/asthma symptoms Continue Advair Diskus 250-50 mcg 1 puff BID and Albuterol HFA 108 mcg 2 puffs 4 times a day as needed (3) Pure hypercholesterolemia: Code(s): E78.00 - Pure hypercholesterolemia, unspecified Plan: Reinforced low cholesterol diet Continue Atorvastatin 20 mg QD Will recheck her labs and fasting lipids in 4 months for follow-up (4) Impaired fasting glucose: Code(s): R73.01 - Impaired fasting glucose Plan: HgbA1c remains normal at 5.5% on her recent labs Reinforced low calorie diet/exercise as tolerated Will continue to monitor her serum glucose level regularly (5) Elevated alanine aminotransferase (ALT) level: Code(s): R74.01 - Elevation of levels of liver transaminase levels Plan: Improved - is most likely related to her weight Will continue to monitor her LFTs regularly (6) Bradycardia, sinus: Code(s): R00.1 - Bradycardia, unspecified Plan: In-office EKG done back in 2007 revealed (+) sinus bradycardia with no acute ST-T wave changes Patient's recent screening EKG done through her [facility] Screening also shows bradycardia, with HR of around 49 bpm HR in the office today is normal at around 60 to 69 bpm Patient is completely asymptomatic and echocardiogram done a couple of times over the past 10 years were normal, so no further intervention is indicated unless she becomes symptomatic (7) Osteopenia: Code(s): M85.80 - Other specified disorders of bone density and structure, unspecified site Qualifiers: Osteopenia location: unspecified Qualified Code(s): M85.80 - Other specified disorders of bone density and structure, unspecified site Plan: Repeat BMD done a year ago in November 2021 revealed (+) osteopenia with a T score of -1.2; baseline BMD done on 03/16/2013 was normal Patient is encouraged to exercise regularly and stay active to help slow the decline of her BMD Is also advised to continue taking oral Calcium and Vitamin D supplements daily Will continue to monitor BMD and repeat scan every 2 to 3 years (8) Overweight (BMI 25.0-29.9): Code(s): E66.3 - Overweight Plan: Reinforced diet/exercise as tolerated/lose weight Plan Follow up in 4 months Orders: Orders Comprehensive [place]. Panel Fast 4 Months E78.00 - Pure hypercholesterolemia, unspecified UA CC w/rflx Micro + Cult 4 Months R30.0 - Dysuria Vitamin D 25-OH Total 4 Months E55.9 - Vitamin D deficiency, unspecified Complete Blood Count Auto Diff 4 Months I10 - Essential (primary) hypertension Lipid Panel 4 Months E78.00 - Pure hypercholesterolemia, unspecified Hemoglobin A1c 4 Months R73.01 - Impaired fasting glucose Medications: New azithromycin take 500 mg today (day 1), then 250 mg for 4 days (days 2-5) PO 6 tabs 0RF prednisone 4 tablets x 2 days, then 3 tablets x 2 days, then 2 tablets x 2 days, then 1 tablet x 2 days 8 days 20 tabs 0RF J45.901 - Unspecified asthma with (acute) exacerbation, M25.50 - Pain in unspecified joint Coding Level of Care Code Est Pt Prev Care 40-64y(53597) Diagnoses Annual physical exam Z00.00 Moderate persistent asthma with exacerbation J45.41 Asthma severity: moderate Asthma persistence: persistent Pure hypercholesterolemia E78.00 Impaired fasting glucose R73.01 Elevated alanine aminotransferase (ALT) level R74.01 Bradycardia, sinus R00.1 Osteopenia, unspecified location M85.80 Osteopenia location: unspecified Overweight (BMI 25.0-29.9) E66.3 Additional Codes TAHIR-7 Assessment Billing - TAHIR-7 Assessment Tool: TAHIR-7 Assessment [id number] ([id number])
== END 2023-08-11 17:12 | disposition home or self-care (01) ==
PROVIDERS: PCP Internal Medicine; Visit Provider Internal Medicine
DX: Z00.00 Encounter for general adult medical examination without abnormal findings (principal); J45.41 Moderate persistent asthma with (acute) exacerbation; E78.00 Pure hypercholesterolemia, unspecified; R73.01 Impaired fasting glucose; R74.01 Elevation of levels of liver transaminase levels; R00.1 Bradycardia, unspecified; M85.80 Other specified disorders of bone density and structure, unspecified site; E66.3 Overweight
CPT/HCPCS: 99396

== ENCOUNTER 2023-10-21 14:57 | Outpatient (AMB) | payer OTHER, SELFPAY ==
[2023-10-21 15:07] VITALS: BP 120/60; BMI 30.1
--- NOTE | 2023-10-21 15:07 | A.OFFVIS_ITS ---
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 No complaints. Last Pap/HPV was negative in 10/06 Last Mammogram was BI-RADS 1 in 12/08 Last Colonoscopy was done in 01/28, the recommendation was to repeat in 10 years [facility] Medical History Osteopenia Obesity (BMI 30-39.9) Elevated alanine aminotransferase (ALT) level Impaired fasting glucose Moderate persistent asthma without complication Pure hypercholesterolemia Surgical History Hx of colonoscopy (~01/2015) History of section History of removal of cyst History of umbilical hernia repair History of eye surgery Family History Father CAD (coronary artery disease) Hypertension CVD (cardiovascular disease) Mother Hypertension CVD (cardiovascular disease) Brother Alive and well Paternal Aunt Cervical cancer Heart disease Maternal Aunt Heart disease Social History Household Members Other:: son Housing: House Alcohol intake: current Alcohol intake frequency: a few times a week Alcohol type: wine Patient Tobacco Use Status: Former Tobacco user e-Cigarette/Vaping Use: Never Used Second Hand Smoke Exposure: Yes service: No Current occupational status: employed 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 Current occupational exposures/hazards: No Sexually active: Yes Sexual orientation: Straight/Heterosexual Gender identity: Female Cognitive needs: No Hearing needs: No Vision needs: No Female Reproductive History Menstrual Total pregnancies: 1 Full term: 1 Number of Living Children: 1 Date of last pap smear: 10/14/21 Date of Mammogram: 11/24/22 Review of Systems Const All systems reviewed & are unremarkable except as noted in HPI and below Card Reports as per HPI Resp Reports as per HPI GI Reports as per HPI and Reports no additional complaints Reports as per HPI Physical Exam Vital Signs: Last Vital Signs BP 120/60 10/21/23 15:07 BMI result Body Mass Index 30.1 Const General: cooperative, healthy appearing and comfortable Chest Chest palpation & inspection: normal inspection of the chest and normal palpation of entire chest wall Breast/axilla inspection: normal inspection of the breasts and normal inspection of the axillae Breast/axilla palpation: normal palpation of the breasts, normal palpation of the axillae and no axillary lymphadenopathy Resp Effort & Inspection: normal respiratory effort Auscultation: clear to auscultation bilaterally Percussion: percussion normal Cardio Palpation: normal PMI Rate: regular rate Rhythm: regular rhythm Heart sounds: no murmurs and no rubs Peripheral pulses: Peripheral pulses 2+ throughout GI Inspection: Yes normal to inspection Palpation (GI): Soft to palpation, nontender, no guarding, not rigid and No hepatosplenomegaly present Percussion: Yes normal to percussion Auscultation: normal bowel sounds Rectal Exam - Female: deferred General: Yes bladder normal to palpation External Female Exam: No lesion Speculum Exam - Vagina: normal appearance of the vagina, normal palpation, normal vaginal discharge and not erythematous Speculum Exam - Cervix: normal appearance of the cervix and normal palpation Bimanual exam- vagina & uterus: normal bimanual exam, normal palpation, uterine size normal, bladder normal to palpation, consistency normal and normal palpation Bimanual Exam- Adnexa, other: normal adnexae, no masses and no tenderness Assessment & Plan Assessment & Plan (1) Well woman exam: Code(s): Z01.419 - Encounter for gynecological examination (general) (routine) without abnormal findings Plan: Co testing not indicated this year. Counseled the patient about the recommended dietary allowance of 1200 mg of Calcium & 600 IU of vitamin D. Mammogram ordered. The patient was instructed to perform monthly self-breast exams and schedule annual exam in a year. All questions answered and the patient verbalized understanding. Orders: Orders MM screening mammo BI Today Z12.31 - Encounter for screening mammogram for malignant neoplasm of breast Coding Level of Care Code Est Pt Prev Care 40-64y(80844) Diagnoses Well woman exam Z01.419
== END 2023-10-21 16:02 | disposition home or self-care (01) ==
LOC: HO.HWS 14:57
PROVIDERS: PCP Internal Medicine; Visit Provider Obstetrics & Gynecology
DX: Z01.419 Encounter for gynecological examination (general) (routine) without abnormal findings (principal)
CPT/HCPCS: 99396

== ENCOUNTER → 2023-10-21 14:57 | Outpatient (BNVA) | payer OTHER, SELFPAY | PROVIDERS: PCP Internal Medicine; Visit Provider Obstetrics & Gynecology ==

== ENCOUNTER 2023-12-05 10:13 | Outpatient (REF) | payer OTHER, SELFPAY ==
[2023-12-05 11:29] LABS: MANUAL DIFF FLAG NO
[2023-12-05 11:35] LABS: Appearance Urine Clear; Color Urine Yellow; Glucose Urine UA Negative (Negative); Leukocyte Esterase Urine Moderate (2+) (Negative); Nitrite Urine Negative (Negative); PH 6.5 (5.0-9.0); UMIC TRIGGER UACC YES; Urine Blood Negative (Negative); Urine Ketones Negative (Negative); Urine Protein Negative (Neg-Trace)
[2023-12-05 11:39] LABS: Basophils Percent Auto 0.7 % (0-2); Eosinophils Absolute Auto 0.1 X10*3/uL (0.0-0.4); Eosinophils Percent Auto 3.3 % (0-4); Hematocrit 41.9 % (37.0-47.0); Hemoglobin 14.1 g/dl (12.0-16.0); Imm Gran Abs Auto 0.01 X10*3/uL (0.00-0.03); Imm Gran Pct Auto 0.2 % (0.0-0.4); Lymphocytes Percent Auto 47.7 % (20-40); Mean Corpuscular HGB Conc 33.7 g/dl (31.0-35.0); Mean Corpuscular Hemoglobin 32.3 pg (27.0-33.0); Mean Corpuscular Volume 95.9 fL (80.0-98.0); Mean Platelet Volume 9.8 fL (9.4-12.3); Monocytes Absolute Auto 0.3 X10*3/uL (0.1-1.2); Monocytes Percent Auto 6.9 % (2-11); Neutrophils Absolute Auto 1.7 x10*3/uL (2.0-8.3); Neutrophils Percent Auto 41.2 % (45-73); Platelet Count 230 X10*3/uL (160-400); Red Blood Count 4.37 X10*6/uL (4.20-5.50); Red Cell Distribution Width 11.9 % (11.0-16.0); White Blood Count 4.2 X10*3/uL (4.8-10.8)
[2023-12-05 11:39] LABS: Bacteria Urine None Seen (None Seen); Hyaline Casts Urine 0-2 /LPF (0-2); RBC Urine 0-2 /HPF (0-2); Squamous Epithelial Cell Urine 0-2 /HPF (0-2); UACC Culture Trigger YES
[2023-12-05 11:45] LABS: Estimated Average Glucose 111 mg/dL; Hemoglobin A1c % 5.5 % (<6.0)
[2023-12-05 11:52] LABS: Alanine Aminotransferase 41 U/L (0-31); Albumin Level 4.4 g/dL (3.5-5.0); Alkaline Phosphatase 69 U/L (39-117); Anion Gap 11 (12-20); Aspartate Amino Transferase 26 U/L (5-31); Bilirubin Total 0.8 mg/dL (0.0-1.0); Blood Urea Nitrogen 17 mg/dL (9-16); Calcium 9.4 mg/dL (8.4-10.2); Carbon Dioxide 26 mmol/L (22-29); Chloride 107 mmol/L (96-108); Cholesterol 169 mg/dL (<200); Estimated Glomerular Filt Rate > 60; Glucose Fasting 111 mg/dL (60-99); HDL Cholesterol 51 mg/dL (>40); LDL Cholesterol Calculated 102 mg/dL (<100); Potassium 4.3 mmol/L (3.3-5.1); Sodium 140 mmol/L (135-145); Total Protein 7.2 g/dL (6.5-8.0); Triglycerides 83 mg/dL (<150)
[2023-12-05 12:09] LABS: Vitamin D 25-OH Total 49.9 ng/mL (>30)
== END 2023-12-05 10:14 | disposition home or self-care (01) ==
LOC: HO.HMGCLDS 10:13
PROVIDERS: PCP Internal Medicine; Visit Provider Internal Medicine
DX: E55.9 Vitamin D deficiency, unspecified (principal); I10 Essential (primary) hypertension; R73.01 Impaired fasting glucose; E78.00 Pure hypercholesterolemia, unspecified; R30.0 Dysuria
CPT/HCPCS: 36415; 80053; 80061; 81001; 82306; 83036; 85025; 87086

== ENCOUNTER 2023-12-12 09:33 | Outpatient (REF) | payer OTHER, SELFPAY | END 2023-12-12 09:34 | disposition home or self-care (01) | LOC: HO.MAMMO 09:33 | PROVIDERS: PCP Internal Medicine; Visit Provider Internal Medicine | DX: Z12.31 Encounter for screening mammogram for malignant neoplasm of breast (principal) | CPT/HCPCS: 77063; 77067 ==

== ENCOUNTER → 2023-12-12 10:00 | Outpatient (BNV) | payer OTHER, SELFPAY | PROVIDERS: PCP Internal Medicine; Visit Provider Radiology Diagnostic Radiology | DX: Z12.31 Encounter for screening mammogram for malignant neoplasm of breast (principal) | CPT/HCPCS: 77063; 77067 ==

== ENCOUNTER 2023-12-15 15:30 | Outpatient (AMB) | payer OTHER, SELFPAY ==
--- NOTE | 2023-12-15 15:31 | MHC.PC.OV ---
Vital Signs 12/15/23 15:32 Height 5 ft 7 in Weight 192 lb BMI 30.1 BP 124/80 Blood Pressure Location Lt brachial Position Sitting Pulse 53 Pulse Source Pulse Oximeter Pulse Oximetry (%) 98 Oxygen Delivery Method Room Air Intake Visit Reasons: 4 month f/u Record Maker Required: No Accompanied by: Self / Same As Patient Allergies No Known Allergies [No Known Allergies*] Allergy (Verified 12/15/23 16:38) Medication List - Last Reconciled 12/15/23 by Rodo Menon MD albuterol sulfate 90 mcg/actuation 2 puffs inhalation Q6H PRN atorvastatin 20 mg PO DAILY 90 days fluticasone propion-salmeterol 250-50 mcg/dose 1 ea inhalation Q12H Tobacco use date assessed: 12/15/23 Dental Screening Dental Screen Date: 12/15/23 Did you have a dental visit in the last 12 months?: Yes Did you have a dental problem in the last 6 months where you did not have access to dental care?: No Was dental information given to patient?: Patient has dentist HPI 4 month f/u HPI Details Patient comes in today for her follow up visit States that currently she feels okay but recalls that she was feeling some skipped beats again off and off when she was checking her pulse a couple of months ago during the holidays - thinks that they could have been due to increased stress during the holidays as her symptoms have not recurred lately Recalls that she was checked out for her palpitations by cardiology a few years ago and was advised back then that all of her tests came out okay She denies any headaches or dizziness Denies any chest pains, no SOB No nausea/vomiting, no abdominal pain No change in bowel habits noted Needs her Advair inhaler Rx refilled Had her follow up labs done a couple of weeks ago - to discuss her results [facility] Medical History Osteopenia Obesity (BMI 30-39.9) Elevated alanine aminotransferase (ALT) level Impaired fasting glucose Moderate persistent asthma without complication Pure hypercholesterolemia Surgical History Hx of colonoscopy (~01/2015) History of section History of removal of cyst History of umbilical hernia repair History of eye surgery Family History Father CAD (coronary artery disease) Hypertension CVD (cardiovascular disease) Mother Hypertension CVD (cardiovascular disease) Brother Alive and well Paternal Aunt Cervical cancer Heart disease Maternal Aunt Heart disease Social History Household Members Other:: son Housing: House Alcohol intake: current Alcohol intake frequency: a few times a week Alcohol type: wine Patient Tobacco Use Status: Former Tobacco user e-Cigarette/Vaping Use: Never Used Second Hand Smoke Exposure: Yes service: No Current occupational status: employed 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 1. Little interest or pleasure in doing things: not at all 2. Feeling down, depressed, or hopeless: not at all 3. Trouble falling or staying asleep, or sleeping too much: not at all 4. Feeling tired or having little energy: not at all 5. Poor appetite or overeating: not at all 6. Feeling bad about yourself - or that you are a failure or have let yourself or your family down: not at all 7. Trouble concentrating on things, such as reading the newspaper or watching television: not at all 8. Moving or speaking so slowly that other people could have noticed. Or the opposite - being so fidgety or restless that you have been moving around a lot more than usual: not at all 9. Thoughts that you would be better off or of hurting yourself in some way: not at all Total score: 0 Depression Screening Interpretation: Negative Depression Screening Done: Yes 82710 - PHQ-9 Billing: Yes Source: Developed by Drs. Zhou Roldan, Katiuska Horn, Brandyn Rizvi and colleagues, with an educational leeann from [employer]. Thrive Questionnaire Date Thrive assessed: 12/15/23 I am a: Patient What is your living situation today?: I have a steady place to live Within the past 12 months, did the food you bought not last and you didn't have the money to get more?: Never true Within the past 12 months, did you worry whether your food would run out before you got money to buy more?: Never true Do you have trouble paying for medicines?: No Do you have trouble getting transportation to medical appointments?: No Do you have trouble paying your heating and electricity bill?: No Do you have trouble taking care of your child, family member or friend?: No Do you have trouble with day-to-day activities such as bathing, preparing meals, shopping, managing finances, etc.?: No Are you currently unemployed and looking for a job?: No Are you interested in more education?: No Please select the resources that you would like help with: None Currently or been in a relationship where the following occur: no concerns reported THRIVE Score: 0 AUDIT C Alcohol Use Questionnaire (AUDIT-C) 1. How often do you have a drink containing alcohol?: 2-3 times a week 2. How many drinks containing alcohol do you have on a typical day when you are drinking?: 1 or 2 3. How often do you have six or more drinks on one occasion?: Never Total Score: 3 Score Reviewed/Action Taken: Yes TAHIR-7 AMB Questionnaire TAHIR-7 Date TAHIR - 7 assessed: 12/15/23 Feeling nervous, anxious, or on edge: 1 = Several days Not being able to stop or control worryin = Not at all Worrying too much about different things: 0 = Not at all Trouble relaxin = Not at all Being so restless that it is hard to sit still: 0 = Not at all Becoming easily annoyed or irritable: 0 = Not at all Feeling afraid as if something awful might happen: 0 = Not at all Total TAHIR-7 score (0-4 normal; 5-9 mild; 10-14 moderate; 15-21 severe): 1 Source: Developed by Drs. Zhou Roldan, Katiuska Horn, Brandyn Rizvi and colleagues, with an educational leeann from [employer]. TAHIR-7 Assessment Billing TAHIR-7 Assessment Tool: TAHIR-7 Assessment 29894 Review of Systems Const Denies chills, Denies fatigue, Denies fever(s) and Denies headache(s) ENT Denies dysphagia, Denies dizziness, Denies otalgia, Denies headache(s), Denies neck pain, Denies odynophagia and Denies sore throat Card Denies chest pain, Denies palpitations and Denies dyspnea Resp Denies cough, Denies dyspnea and Denies wheezing GI Denies abdominal pain, Denies constipation, Denies dysphagia, Denies heartburn, Denies diarrhea, Denies nausea, Denies odynophagia and Denies vomiting Denies difficulty voiding, Denies nocturia, Denies dysuria and Denies urinary urgency Musc Reports back pain (on and off) and Denies neck pain Skin/Breast Denies rash Neuro Denies dizziness and Denies headache(s) Endo Denies fatigue and Denies palpitations Aller/Immun Denies wheezing Physical exam (Primary Care) Vital Signs: Last Vital Signs Pulse 53 12/15/23 15:32 BP 124/80 12/15/23 15:32 Pulse Ox 98 12/15/23 15:32 Oxygen Delivery Method Room Air 12/15/23 15:32 BMI result Body Mass Index 30.1 Tobacco/Smoking Status: Tobacco use Status Tobacco use date assessed 12/15/23 12/15/23 15:33 Patient Tobacco Use Status Former Tobacco user 12/15/23 15:33 e-Cigarette/Vaping Use Never Used 12/15/23 15:33 PHQ-9: PHQ-9 Score PHQ-9: Total score 0 12/15/23 16:05 Depression Screening Interpretation: Negative Thrive Assessment: Date of Thrive Assessment Date Thrive assessed 12/15/23 12/15/23 15:33 Currently or been in a relationship where the following occur: no concerns reported Const General: no acute distress and alert HENMT Ears: TM's normal bilaterally and EAC's normal Throat: Yes posterior oropharynx normal and Yes tonsils normal (no TP congestion noted) Neck Neck: Yes no lymphadenopathy and Yes supple Resp Auscultation: clear to auscultation bilaterally, no rales and no wheezes Cardio Rate: regular rate Rhythm: regular rhythm Heart sounds: no murmurs GI Palpation (GI): Soft to palpation and nontender Auscultation: normal bowel sounds General: Yes no CVA tenderness Back/Spine/Pelvis Back: no CVA tenderness Thoracic/Lumbar Spine: No lumbar spinal tenderness Skin Rashes: no rashes Extrem General: Yes no clubbing, cyanosis or edema Results Reviewed Results Reviewed: Laboratory Tests 08/07/23 12/05/23 12/05/23 06:24 10:20 10:25 WBC 4.2 L Hgb 14.1 Hct 41.9 Plt Count 230 Sodium 140 Potassium 4.3 Creatinine 0.79 Estimated GFR > 60 Fasting Glucose 111 H Hemoglobin A1c % 5.5 Calcium 9.4 AST 26 ALT 41 H Triglycerides 83 Cholesterol 169 LDL Cholesterol, Calc 102 H HDL Cholesterol 51 25-OH Vitamin D Total 49.9 TSH 1.45 Ur Specific [place] 1.020 Urine Protein Negative Urine Glucose (UA) Negative Urine Blood Negative Urine Nitrite Negative Assessment and Plan Assessment & Plan (1) Pure hypercholesterolemia: Code(s): E78.00 - Pure hypercholesterolemia, unspecified Plan: Results of her labs done a couple of weeks ago reviewed and discussed with patient - she is cautioned that her cholesterol levels, especially her LDL cholesterol, have increased slightly from previous Reinforced low cholesterol diet Continue Atorvastatin 20 mg QD for now Will recheck her labs and fasting lipids in 4 months for follow-up (2) Moderate persistent asthma without complication: Code(s): J45.40 - Moderate persistent asthma, uncomplicated Plan: Continue Advair Diskus 250-50 mcg 1 puff BID and Albuterol HFA 108 mcg 2 puffs 4 times a day as needed (3) Impaired fasting glucose: Code(s): R73.01 - Impaired fasting glucose Plan: HgbA1c remains normal at 5.5% on her recent labs Reinforced low calorie diet/exercise as tolerated Will continue to monitor her serum glucose level regularly (4) Elevated alanine aminotransferase (ALT) level: Code(s): R74.01 - Elevation of levels of liver transaminase levels Plan: Improving - was most likely related to her weight Will continue to monitor her LFTs regularly (5) Bradycardia, sinus: Code(s): R00.1 - Bradycardia, unspecified Plan: In-office EKG done back in 2007 revealed (+) sinus bradycardia with no acute ST-T wave changes Patient's recent screening EKG done through her [facility] also shows bradycardia, with HR of around 49 bpm HR in the office today is normal at around 60 to 69 bpm Patient is completely asymptomatic and echocardiogram done a couple of times over the past 10 years were normal, so no further intervention is indicated unless she becomes symptomatic (6) Skipped heart beats: Code(s): I45.9 - Conduction disorder, unspecified Plan: Patient was seen and worked up by cardiology back in 2019 and other than a few brief runs of supraventricular ectopy on her Holter monitor, all of her work ups came out normal Advised that if her symptoms continue to recur, we may need to refer her back to cardiology for reevaluation - is advised that even though her previous evaluations were normal, things can change as one gets older and she may need to have these reassessed if her symptoms keep recurring (7) Osteopenia: Code(s): M85.80 - Other specified disorders of bone density and structure, unspecified site Qualifiers: Osteopenia location: unspecified Qualified Code(s): M85.80 - Other specified disorders of bone density and structure, unspecified site Plan: Repeat BMD done a couple of years ago in November 2021 revealed (+) osteopenia with a T score of -1.2; baseline BMD done on 03/16/2013 was normal Patient is again encouraged to exercise regularly and stay active to help slow her BMD decline Continue taking oral Calcium and Vitamin D supplements daily Will continue to monitor her BMD and repeat scan every 2 to 3 years (8) Overweight (BMI 25.0-29.9): Code(s): E66.3 - Overweight Plan: Reinforced diet/exercise as tolerated/lose weight Plan Follow up in 4 months Orders: Orders Comprehensive [place]. Panel Fast 4 Months E78.00 - Pure hypercholesterolemia, unspecified TSH reflex Free T4 4 Months E78.00 - Pure hypercholesterolemia, unspecified, R00.2 - Palpitations Vitamin D 25-OH Total 4 Months E55.9 - Vitamin D deficiency, unspecified Complete Blood Count Auto Diff 4 Months D64.9 - Anemia, unspecified Lipid Panel 4 Months E78.00 - Pure hypercholesterolemia, unspecified UA CC w/rflx Micro + Cult 4 Months R30.0 - Dysuria Hemoglobin A1c 4 Months R73.01 - Impaired fasting glucose Medications: Refilled fluticasone propion-salmeterol 250-50 mcg/dose 1 ea inhalation Q12H 180 caps 3RF Coding Level of Care Code Est Pt Level 4 (16461) Diagnoses Pure hypercholesterolemia E78.00 Moderate persistent asthma without complication J45.40 Impaired fasting glucose R73.01 Elevated alanine aminotransferase (ALT) level R74.01 Bradycardia, sinus R00.1 Skipped heart beats I45.9 Osteopenia, unspecified location M85.80 Osteopenia location: unspecified Overweight (BMI 25.0-29.9) E66.3 Additional Codes TAHIR-7 Assessment Billing - TAHIR-7 Assessment Tool: TAHIR-7 Assessment 10545 ([id number])
[2023-12-15 15:32] VITALS: BP 124/80; PULSE 53; O2SAT 98; BMI 30.1
== END 2023-12-15 16:48 | disposition home or self-care (01) ==
PROVIDERS: PCP Internal Medicine; Visit Provider Internal Medicine
DX: E78.00 Pure hypercholesterolemia, unspecified (principal); J45.40 Moderate persistent asthma, uncomplicated; R73.01 Impaired fasting glucose; R74.01 Elevation of levels of liver transaminase levels; R00.1 Bradycardia, unspecified; I45.9 Conduction disorder, unspecified; M85.80 Other specified disorders of bone density and structure, unspecified site; E66.3 Overweight
CPT/HCPCS: 99214

== ENCOUNTER 2024-03-18 13:43 | Outpatient (AMB) | payer OTHER, SELFPAY ==
[2024-03-18 13:50] VITALS: BP 122/84; PULSE 75; TEMP 37.6; O2SAT 96; BMI 29.8
--- NOTE | 2024-03-18 13:50 | AM.OFFWIN_ITS ---
Intake Vital Signs 03/18/24 13:50 Height 5 ft 7 in Weight 190 lb 6 oz BMI 29.8 BP 122/84 Blood Pressure Location Lt brachial Position Sitting Pulse 75 Pulse Source Pulse Oximeter Temp 99.6 F Temp Source Oral Pulse Oximetry (%) 96 Oxygen Delivery Method Room Air Intake Visit Reasons: EP tight chest/cough Intake Note: Pt presents to the office today for c/o tight chest and cough that started a week ago. Patient Tobacco Use Status: Former Tobacco user Allergies No Known Allergies [No Known Allergies*] Allergy (Verified 03/18/24 14:43) Medication List - Last Reconciled 03/18/24 by THEO Mehta albuterol sulfate 90 mcg/actuation 2 puffs inhalation Q6H PRN atorvastatin 20 mg PO DAILY 90 days azithromycin For 250 mg dose pack: take 500 mg today (day 1), then 250 mg for 4 days (days 2-5) PO fluticasone propion-salmeterol 250-50 mcg/dose 1 ea inhalation Q12H prednisone 20 mg PO BID HPI HPI Comments History of Present Illness Details Patient is a 58-year-old female in today for sick visit. She has a past medical history significant for asthma, currently taking albuterol and Advair. Patient reports symptoms of low-grade fever and cough, ear fullness, sinus tenderness x11 days. Denies chest pain, shortness a breath, dizziness, numbness, nausea, vomiting diarrhea. 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 [facility] Medical History Osteopenia Obesity (BMI 30-39.9) Elevated alanine aminotransferase (ALT) level Impaired fasting glucose Moderate persistent asthma without complication Pure hypercholesterolemia Surgical History Hx of colonoscopy (~01/2015) History of section History of removal of cyst History of umbilical hernia repair History of eye surgery Family History Father CAD (coronary artery disease) Hypertension CVD (cardiovascular disease) Mother Hypertension CVD (cardiovascular disease) Brother Alive and well Paternal Aunt Cervical cancer Heart disease Maternal Aunt Heart disease Social History Household Members Other:: son Housing: House Alcohol intake: current Alcohol intake frequency: a few times a week Alcohol type: wine Patient Tobacco Use Status: Former Tobacco user e-Cigarette/Vaping Use: Never Used Second Hand Smoke Exposure: Yes service: No Current occupational status: employed 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 Oriented X3.? No acute distress.? Head: Normocephalic, atraumatic. ENT: Pharynx erythema. + Sinus tenderness. ? Neck: Normal inspection.? Neck supple.? CVS: Normal heart rate and rhythm.? Pulses normal.? Respiratory: No respiratory distress.? Bilateral wheeze upper lobes.? Neuro: Oriented X 3.? No motor deficit.? No sensory deficit. Office Procedures Nebulizer Treatment Nebulizer Treatment [id number]-[place]/MDI RX initial, or Nebulizer Subsequent Treatment Office Meds ipratropium 0.5 mg-albuterol 3 mg (2.5 mg base)/3 mL nebulization soln Performing Provider: THEO Mehta Performing Location: [facility] Administered by: Savita Emanuel CMA on 03/18/24 14:37 Dose Route Admin Location Dispensed Lot Number Expiration Date NDC [employer] 3 mL inhalation 3 mL [id number] 09/15/25 99053-447-19 [employer] Assessment & Plan Assessment & Plan (1) Sinusitis: Comment: Will give prednisone and azithromycin. Will call with Chest -Xray and URI swab results. Code(s): J32.9 - Chronic sinusitis, unspecified Qualifiers: Sinusitis location: unspecified location Chronicity: acute Recurrence: not specified as recurrent Qualified Code(s): J01.90 - Acute sinusitis, unspecified Plan: Take your medications as prescribed. If you were prescribed antibiotics today, it is important that you take your medication to their entirety, do not skip any doses, do not finish them early. Follow-up with your primary care provider this week. Return to the emergency department with new or worsening symptoms. Such as fevers, chills, chest pain, shortness of breath, nausea, vomiting, dizziness, headache, vision changes, lethargy In case of emergency call 911 Plan Follow up with pcp. Orders: Orders XR chest 2V Today J18.9 - Pneumonia, unspecified organism SARS-CoV2/FLU/RSV Today J06.9 - Acute upper respiratory infection, unspecified AMB Nebulizer Treatment Today R09.89 - Other specified symptoms and signs involving the circulatory and respiratory systems Medications: New prednisone 20 mg PO BID 10 tabs 0RF azithromycin For 250 mg dose pack: take 500 mg today (day 1), then 250 mg for 4 days (days 2-5) PO 6 tabs 0RF Coding Level of Care Code Est Pt Level 4 (12592) Diagnoses Acute sinusitis, recurrence not specified, unspecified location J01.90 Sinusitis location: unspecified location Chronicity: acute Recurrence: not specified as recurrent CPT Codes Nebulizer Treatment - Nebulizer Treatment, initial or subsequent: 63778- Nebulizer/MDI RX initial, or Nebulizer Subsequent Treatment ([id number]) Time Spent (min) 35
== END 2024-03-18 14:43 | disposition home or self-care (01) ==
PROVIDERS: PCP Internal Medicine; Visit Provider Nurse Practitioner Primary Care
DX: J01.90 Acute sinusitis, unspecified (principal)
CPT/HCPCS: 94640; 99214; J7620

== ENCOUNTER 2024-03-18 14:18 | Outpatient (REF) | payer OTHER, SELFPAY ==
--- NOTE | ~2024-03-18 | XR_ITS ---
EXAMINATION: XR CHEST CLINICAL INFORMATION: Pneumonia. COMPARISON: Chest radiograph 10/27/2022 and 09/17/2020. TECHNIQUE: 2 views of the chest were obtained. FINDINGS: Normal appearance of the cardiomediastinal silhouette. Unchanged slightly increased bronchovascular markings. No focal consolidation, pleural effusion or pneumothorax. Stable mild compression deformity within a mid thoracic vertebrae compared to 2020. Thoracic spondylosis. No acute osseous findings. XR/XR chest 2V IMPRESSION: 1. No focal consolidation, pleural effusion or pneumothorax. 2. Unchanged slightly increased bronchovascular markings which could be seen with chronic small airways disease.
[2024-03-18 17:40] LABS: Influenza A PCR POSITIVE (Negative); Influenza B PCR NEGATIVE (Negative); Resp Syncy Virus RNA Qual PCR NEGATIVE (Negative); SARS COV2 PCR INHOUSE NEGATIVE (Negative)
== END 2024-03-18 14:19 | disposition home or self-care (01) ==
LOC: HO.HMGCX 14:18
PROVIDERS: PCP Internal Medicine; Visit Provider Nurse Practitioner Primary Care
DX: J06.9 Acute upper respiratory infection, unspecified (principal)
CPT/HCPCS: 0241U; 71046

== ENCOUNTER 2024-03-24 15:44 | Outpatient (AMB) | payer OTHER, SELFPAY ==
[2024-03-24 15:46] VITALS: BP 110/70; PULSE 96; TEMP 36.5; O2SAT 98; BMI 29.8
--- NOTE | 2024-03-24 15:46 | MHC.OFFWIV ---
Intake Vital Signs 03/24/24 15:46 Height 5 ft 7 in Weight 190 lb BMI 29.8 BP 110/70 Blood Pressure Location Lt brachial Position Sitting Pulse 96 Pulse Source Pulse Oximeter Temp 97.7 F Temp Source Temporal Artery Scan Pulse Oximetry (%) 98 Oxygen Delivery Method Room Air Intake Visit Reasons: EP needs more antibiotics Intake Note: pt is here today for more antibiotics Patient Tobacco Use Status: Former Tobacco user Allergies No Known Allergies [No Known Allergies*] Allergy (Verified 03/24/24 15:49) Do you need a note to return to daycare/school/sports/work: No HPI HPI Comments History of Present Illness Details 58 y/o female patient presents to walk in clinic with c/o SOB, wheezing and fatigue. Pt was seen here at [facility] 03/18/24 for similar concerns. She was diagnosed with Influenza A. She was also given Z-Pack x 5 days and breathing Tx. Today Pt reports not feeling any better despite completing all her medications (Zpack). [facility] Medical History Osteopenia Obesity (BMI 30-39.9) Elevated alanine aminotransferase (ALT) level Impaired fasting glucose Moderate persistent asthma without complication Pure hypercholesterolemia Surgical History Hx of colonoscopy (~01/2015) History of section History of removal of cyst History of umbilical hernia repair History of eye surgery Family History Father CAD (coronary artery disease) Hypertension CVD (cardiovascular disease) Mother Hypertension CVD (cardiovascular disease) Brother Alive and well Paternal Aunt Cervical cancer Heart disease Maternal Aunt Heart disease Social History Household Members Other:: son Housing: House Alcohol intake: current Alcohol intake frequency: a few times a week Alcohol type: wine Patient Tobacco Use Status: Former Tobacco user e-Cigarette/Vaping Use: Never Used Second Hand Smoke Exposure: Yes service: No Current occupational status: employed 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 Current occupational exposures/hazards: No Sexual orientation: Straight/Heterosexual Gender identity: Female Cognitive needs: No Hearing needs: No Vision needs: No Review of Systems Const All systems reviewed & are unremarkable except as noted in HPI and below Physical Exam Vital Signs: Last Vital Signs Temp 97.7 F 03/24/24 15:46 Pulse 96 03/24/24 15:46 BP 110/70 03/24/24 15:46 Pulse Ox 98 03/24/24 15:46 Oxygen Delivery Method Room Air 03/24/24 15:46 BMI result Body Mass Index 29.8 Const General: comfortable and no acute distress Nutritional Appearance: overweight Orientation/consciousness: patient oriented x3 HEENT Head: Yes normocephalic Ears: external ears normal and TM abnormal bulging and with fluid behind the TM bilateral; not erythematous, not perforated and not retracted General nose exam: Abnormal mucous membranes and turbinates present boggy and erythematous Face and sinus: Yes sinuses nontender Mouth: moist mucous membranes Throat: Yes posterior oropharynx normal Resp Effort & Inspection: normal respiratory effort, able to speak in complete sentences and no cough Auscultation: clear to auscultation bilaterally, no crackles, no rales, no rhonchi and no wheezes Cardio Rate: regular rate Rhythm: regular rhythm Neuro General: patient oriented x3, gait normal and moves all extremities Psych Speech and movement: Normal speech and movement present Assessment & Plan Assessment & Plan (1) Influenza A: Code(s): J10.1 - Influenza due to other identified influenza virus with other respiratory manifestations Plan: - Home and OTC remedies - Rest and hydrate well - Acetaminophen for pain relief Coding Level of Care Code Est Pt Level 3 (93705) Diagnoses Influenza A J10.1 Time Spent (min) 15
== END 2024-03-24 16:14 | disposition home or self-care (01) ==
PROVIDERS: PCP Internal Medicine; Visit Provider Nurse Practitioner Family
DX: J10.1 Influenza due to other identified influenza virus with other respiratory manifestations (principal)
CPT/HCPCS: 99213

== ENCOUNTER 2024-04-02 09:32 | Outpatient (REF) | payer OTHER, SELFPAY ==
[2024-04-02 11:25] LABS: MANUAL DIFF FLAG NO
[2024-04-02 11:27] LABS: Basophils Percent Auto 0.7 % (0-2); Eosinophils Absolute Auto 0.1 X10*3/uL (0.0-0.4); Eosinophils Percent Auto 2.8 % (0-4); Hematocrit 38.7 % (37.0-47.0); Hemoglobin 13.1 g/dl (12.0-16.0); Imm Gran Abs Auto 0.01 X10*3/uL (0.00-0.03); Imm Gran Pct Auto 0.2 % (0.0-0.4); Lymphocytes Absolute Auto 1.8 X10*3/uL (1.2-4.9); Lymphocytes Percent Auto 42.1 % (20-40); Mean Corpuscular HGB Conc 33.9 g/dl (31.0-35.0); Mean Corpuscular Hemoglobin 32.8 pg (27.0-33.0); Monocytes Absolute Auto 0.2 X10*3/uL (0.1-1.2); Monocytes Percent Auto 5.7 % (2-11); Neutrophils Absolute Auto 2.1 x10*3/uL (2.0-8.3); Neutrophils Percent Auto 48.5 % (45-73); Platelet Count 218 X10*3/uL (160-400); Red Blood Count 3.99 X10*6/uL (4.20-5.50); Red Cell Distribution Width 11.8 % (11.0-16.0); White Blood Count 4.2 X10*3/uL (4.8-10.8)
[2024-04-02 11:34] LABS: Estimated Average Glucose 123 mg/dL; Hemoglobin A1c % 5.9 % (<6.0)
[2024-04-02 12:15] LABS: Alanine Aminotransferase 37 U/L (0-31); Alkaline Phosphatase 62 U/L (39-117); Anion Gap 13 (12-20); Aspartate Amino Transferase 21 U/L (5-31); Bilirubin Total 0.8 mg/dL (0.0-1.0); Blood Urea Nitrogen 18 mg/dL (9-16); Calcium 9.1 mg/dL (8.4-10.2); Carbon Dioxide 25 mmol/L (22-29); Chloride 107 mmol/L (96-108); Cholesterol 163 mg/dL (<200); Estimated Glomerular Filt Rate > 60; Glucose Fasting 109 mg/dL (60-99); HDL Cholesterol 44 mg/dL (>40); LDL Cholesterol Calculated 84 mg/dL (<100); Potassium 4.1 mmol/L (3.3-5.1); Sodium 141 mmol/L (135-145); TSH reflex Free T4 0.72 uIU/mL (0.32-4.0); Total Protein 6.6 g/dL (6.5-8.0); Triglycerides 178 mg/dL (<150); Vitamin D 25-OH Total 52.1 ng/mL (>30)
[2024-04-02 14:14] LABS: Appearance Urine Clear; Color Urine Yellow; Glucose Urine UA Negative (Negative); Leukocyte Esterase Urine Small (1+) (Negative); Nitrite Urine Negative (Negative); UMIC TRIGGER UACC YES; Urine Blood Negative (Negative); Urine Ketones Negative (Negative); Urine Protein Negative (Neg-Trace)
[2024-04-02 14:23] LABS: Bacteria Urine None Seen (None Seen); Hyaline Casts Urine 0-2 /LPF (0-2); RBC Urine 0-2 /HPF (0-2); Squamous Epithelial Cell Urine 0-2 /HPF (0-2); UACC Culture Trigger YES; WBC Urine 0-5 /HPF (0-5)
== END 2024-04-02 09:33 | disposition home or self-care (01) ==
LOC: HO.HMGCLDS 09:32
PROVIDERS: PCP Internal Medicine; Visit Provider Internal Medicine
DX: E78.00 Pure hypercholesterolemia, unspecified (principal); E55.9 Vitamin D deficiency, unspecified; R00.2 Palpitations; D64.9 Anemia, unspecified; R73.01 Impaired fasting glucose; R82.90 Unspecified abnormal findings in urine
CPT/HCPCS: 36415; 80053; 80061; 81001; 82306; 83036; 84443; 85025; 87086

== ENCOUNTER 2024-04-15 15:16 | Outpatient (AMB) | payer OTHER, SELFPAY ==
[2024-04-15 15:20] VITALS: BP 118/70; PULSE 55; O2SAT 99; BMI 29.9
--- NOTE | 2024-04-15 15:20 | MHC.PC.OV ---
Vital Signs 04/15/24 15:20 Height 5 ft 7 in Weight 191 lb BMI 29.9 BP 118/70 Blood Pressure Location Lt brachial Position Sitting Pulse 55 Pulse Source Pulse Oximeter Pulse Oximetry (%) 99 Oxygen Delivery Method Room Air Intake Visit Reasons: hyperlipidemia, asthma, palpitations Accounts Payable Coordinator Required: No Controller Coal Or Ore: Not Required per policy Accompanied by: Self / Same As Patient Allergies No Known Allergies [No Known Allergies*] Allergy (Verified 04/18/24 00:15) Medication List - Last Reconciled 04/18/24 by Rodo Menon MD albuterol sulfate 90 mcg/actuation 2 puffs inhalation Q6H PRN atorvastatin 20 mg PO DAILY 90 days azithromycin For 250 mg dose pack: take 500 mg today (day 1), then 250 mg for 4 days (days 2-5) PO fluticasone propion-salmeterol 250-50 mcg/dose 1 ea inhalation Q12H Tobacco use date assessed: 12/15/23 Dental Screening Dental Screen Date: 12/15/23 HPI hyperlipidemia, asthma, palpitations HPI Details Patient comes in today for her follow up visit States that she has some concerns about her own personal risks for cancer and would like to see if there are any screening tests that she should have done to check for cancer States that one of her first-cousins on her father's side was just diagnosed with stage 3 colon cancer at 44 y/o and will be starting treatment soon States that she feels okay otherwise She denies any headaches or dizziness Denies any chest pains, no SOB No nausea/vomiting, no abdominal pain No change in bowel habits noted She had her follow up labs done a couple of weeks ago - to discuss her results [facility] Medical History Osteopenia Obesity (BMI 30-39.9) Elevated alanine aminotransferase (ALT) level Impaired fasting glucose Moderate persistent asthma without complication Pure hypercholesterolemia Surgical History Hx of colonoscopy (~01/2015) History of section History of removal of cyst History of umbilical hernia repair History of eye surgery Family History Father CAD (coronary artery disease) Hypertension CVD (cardiovascular disease) Mother Hypertension CVD (cardiovascular disease) Brother Alive and well Paternal Aunt Cervical cancer Heart disease Maternal Aunt Heart disease Social History Household Members Other:: son Housing: House Alcohol intake: current Alcohol intake frequency: a few times a week Alcohol type: wine Patient Tobacco Use Status: Former Tobacco user e-Cigarette/Vaping Use: Never Used Second Hand Smoke Exposure: Yes service: No Current occupational status: employed 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 Zhou Roldan, Katisuka Horn, Brandyn Rizvi and colleagues, with an educational leeann from [employer] Review of Systems Const Denies chills, Denies fatigue, Denies fever(s) and Denies headache(s) ENT Denies dysphagia, Denies dizziness, Denies otalgia, Denies headache(s), Denies neck pain, Denies odynophagia and Denies sore throat Card Denies chest pain, Denies palpitations and Denies dyspnea Resp Denies cough, Denies dyspnea and Denies wheezing GI Denies abdominal pain, Denies constipation, Denies dysphagia, Denies heartburn, Denies diarrhea, Denies nausea, Denies odynophagia and Denies vomiting Denies difficulty voiding, Denies nocturia, Denies dysuria and Denies urinary urgency Musc Reports back pain (on and off) and Denies neck pain Skin/Breast Denies rash Neuro Denies dizziness and Denies headache(s) Endo Denies fatigue and Denies palpitations Aller/Immun Denies wheezing Physical exam (Primary Care) Vital Signs: Last Vital Signs Pulse 55 04/15/24 15:20 BP 118/70 04/15/24 15:20 Pulse Ox 99 04/15/24 15:20 Oxygen Delivery Method Room Air 04/15/24 15:20 BMI result Body Mass Index 29.9 Tobacco/Smoking Status: Tobacco use Status Tobacco use date assessed 12/15/23 04/15/24 15:23 Patient Tobacco Use Status Former Tobacco user 05/31/24 15:23 e-Cigarette/Vaping Use Never Used 04/15/24 15:23 Thrive Assessment: Date of Thrive Assessment Date Thrive assessed 12/15/23 04/15/24 15:23 Const General: no acute distress and alert HENMT Ears: TM's normal bilaterally and EAC's normal Throat: Yes posterior oropharynx normal and Yes tonsils normal (no TP congestion noted) Neck Neck: Yes no lymphadenopathy and Yes supple Thyroid: Thyroid normal Resp Auscultation: clear to auscultation bilaterally, no rales and no wheezes Cardio Rate: regular rate Rhythm: regular rhythm Heart sounds: no murmurs GI Palpation (GI): Soft to palpation and nontender Auscultation: normal bowel sounds General: Yes no CVA tenderness Back/Spine/Pelvis Back: no CVA tenderness Thoracic/Lumbar Spine: No lumbar spinal tenderness Skin Rashes: no rashes Extrem General: Yes no clubbing, cyanosis or edema Results Reviewed Results Reviewed: Laboratory Tests 04/02/24 09:42 WBC 4.2 L Hgb 13.1 Hct 38.7 Plt Count 218 Sodium 141 Potassium 4.1 Creatinine 0.82 Estimated GFR > 60 Fasting Glucose 109 H Hemoglobin A1c % 5.9 Calcium 9.1 AST 21 ALT 37 H Triglycerides 178 H Cholesterol 163 LDL Cholesterol, Calc 84 HDL Cholesterol 44 25-OH Vitamin D Total 52.1 TSH 0.72 Ur Specific Sayre 1.010 Urine Protein Negative Urine Glucose (UA) Negative Urine Blood Negative Urine Nitrite Negative Ur Leukocyte Esterase Small (1+) H Assessment and Plan Assessment & Plan (1) Pure hypercholesterolemia: Code(s): E78.00 - Pure hypercholesterolemia, unspecified Plan: Results of her labs done a couple of weeks ago reviewed and discussed with patient - she is advised that her cholesterol levels have improved slightly from previous on her recent labs Reinforced low cholesterol diet Continue Atorvastatin 20 mg QD Will recheck her labs and fasting lipids in 4 months for follow-up (2) Moderate persistent asthma without complication: Code(s): J45.40 - Moderate persistent asthma, uncomplicated Plan: Continue Advair Diskus 250-50 mcg 1 puff BID and Albuterol HFA 108 mcg 2 puffs 4 times a day as needed (3) Impaired fasting glucose: Code(s): R73.01 - Impaired fasting glucose Plan: Her HgbA1c was at 5.9% on her labs done a couple of weeks ago; was at 5.5% a few months ago Reinforced low calorie diet/exercise as tolerated Will continue to monitor her serum glucose level and HgbA1c regularly (4) Elevated alanine aminotransferase (ALT) level: Code(s): R74.01 - Elevation of levels of liver transaminase levels Plan: Improving - was most likely related to her weight Will continue to monitor her LFTs regularly (5) Osteopenia: Code(s): M85.80 - Other specified disorders of bone density and structure, unspecified site Qualifiers: Osteopenia location: unspecified Qualified Code(s): M85.80 - Other specified disorders of bone density and structure, unspecified site Plan: Repeat BMD done a couple of years ago in November 2021 revealed (+) osteopenia with a T score of -1.2; baseline BMD done on 03/16/2013 was normal Patient is again encouraged to exercise regularly and stay active to help slow her BMD decline Continue taking oral Calcium and Vitamin D supplements daily Will continue to monitor her BMD and repeat scan every 2 to 3 years (6) Overweight (BMI 25.0-29.9): Code(s): E66.3 - Overweight Plan: Reinforced diet/exercise as tolerated/lose weight (7) Colon cancer screening: Code(s): Z12.11 - Encounter for screening for malignant neoplasm of colon Plan: Per request, will refer her to GI for consideration for repeat colonoscopy Will also refer her to hematology / oncology for further evaluation and cancer screenings where appropriate Plan To return as scheduled in 4 months for her annual physical examination Orders: Orders Complete Blood Count Auto Diff 08/06/24 D64.9 - Anemia, unspecified Comprehensive [place]. Panel Fast 08/06/24 E78.00 - Pure hypercholesterolemia, unspecified Hemoglobin A1c 08/06/24 R73.01 - Impaired fasting glucose TSH reflex Free T4 08/06/24 E78.00 - Pure hypercholesterolemia, unspecified UA CC w/rflx Micro + Cult 08/06/24 R30.0 - Dysuria Lipid Panel 08/06/24 E78.00 - Pure hypercholesterolemia, unspecified Vitamin D 25-OH Total 08/06/24 E55.9 - Vitamin D deficiency, unspecified Referrals Hematology & Oncology Referral Z80.6 - Family history of leukemia Gastroenterology Referral Z12.11 - Encounter for screening for malignant neoplasm of colon Coding Level of Care Code Est Pt Level 4 (14709) Complex EM visit Add On G2211 Diagnoses Pure hypercholesterolemia E78.00 Moderate persistent asthma without complication J45.40 Impaired fasting glucose R73.01 Elevated alanine aminotransferase (ALT) level R74.01 Osteopenia, unspecified location M85.80 Osteopenia location: unspecified Overweight (BMI 25.0-29.9) E66.3 Colon cancer screening Z12.11
== END 2024-04-15 16:12 | disposition home or self-care (01) ==
PROVIDERS: PCP Internal Medicine; Visit Provider Internal Medicine
DX: E78.00 Pure hypercholesterolemia, unspecified (principal); J45.40 Moderate persistent asthma, uncomplicated; R73.01 Impaired fasting glucose; R74.01 Elevation of levels of liver transaminase levels; M85.80 Other specified disorders of bone density and structure, unspecified site; E66.3 Overweight; Z12.11 Encounter for screening for malignant neoplasm of colon
CPT/HCPCS: 99214; G2211

== ENCOUNTER → 2024-07-28 14:50 | Outpatient (BNV) | payer OTHER, SELFPAY | PROVIDERS: PCP Internal Medicine; Referring Provider Internal Medicine; Visit Provider Internal Medicine | DX: Z80.6 Family history of leukemia (principal) | CPT/HCPCS: 99203 ==

== ENCOUNTER 2024-08-03 14:50 | Outpatient (AMB) | payer OTHER, SELFPAY ==
--- NOTE | 2024-08-03 14:52 | A.OFFVIS_ITS ---
Vital Signs 3 08/03/24 14:58 Height 5 ft 7 in Weight 189 lb 9.561 oz BMI 29.7 BP 123/65 Blood Pressure Location Lt brachial Position Sitting Intake Visit Reasons: Colonoscopy Screening Intake Note: Carisa presents as a new patient for colonoscopy screening. CC: Last colonoscopy was done about 10 years ago but patient states that her 44 years old first cousin was diagnosed with stage 3 colon cancer. She states that she has noticed some inflammation sometimes around her navel that hurts to the touch. Patient reports occasional constipation and having cysts like pockets around her rectum . Allergies No Known Allergies [No Known Allergies*] Allergy (Verified 08/15/24 16:07) HPI HPI Colonoscopy Screening: Details: 59-year-old female here for preprocedural meeting to discuss a screening colonoscopy. She is referred by Rodo Menon Asthma Obesity High cholesterol Impaired fasting glucose Osteopenia Palpitations * SURGICAL HISTORY Umbilical hernia repair Ganglion cyst repair Strabismus correction section Colonoscopy-2014 [facility] GI= negative study * ALLERGIES: NKDA * [employer] LABS: Laboratory Tests 04/02/24 09:42 WBC 4.2 L Hgb 13.1 Hct 38.7 Plt Count 218 Estimated GFR > 60 Total Bilirubin 0.8 AST 21 ALT 37 H Alkaline Phosphatase 62 TSH 0.72 TODAY'S VISIT She is anxious to have her next colonoscopy, as she has a paternal first cousin that was recently dx'ed with stage III crc at age 45, she does not know if her father had CRC as he had an unknown cancer that spread and used to poop blood. She is having some RB on the TT with burning and no sustained upper GI problems. SHE HAS INTERMITTENT EPISODES OF SWELLING around the umbilicus and pain. She has a history of a umbilical hernia in her past childhood but she is uncertain if she has 1 at this time. She does not have any redness or heat at the area but it is painful. Will get an ultrasound to try to point her in the right direction and see if there is any concern for herniation. Her asthma is well controlled and no cardiac problems There are no prior problems with anesthesia or sedation. No ID problems. FHX as above, paternal 1st cousin with crc the rest is uncertain. [facility] Medical History (Updated 08/22/24 @ 03:47 by Rodo Menon MD) Skipped heart beats Osteopenia Obesity (BMI 30-39.9) Elevated alanine aminotransferase (ALT) level Impaired fasting glucose Moderate persistent asthma without complication Pure hypercholesterolemia Surgical History Hx of colonoscopy (~01/2015) History of section History of removal of cyst History of umbilical hernia repair History of eye surgery Family History Father CAD (coronary artery disease) Hypertension CVD (cardiovascular disease) Melanoma Rectal bleeding Mother Hypertension CVD (cardiovascular disease) Brother Alive and well Paternal Aunt Cervical cancer Heart disease Maternal Aunt Heart disease Family/Other Colon cancer Paternal Aunt Cervical cancer Paternal Grandmother Stomach cancer Social History Household Members: Family Household Members Other:: son Housing: House Alcohol intake: current Alcohol intake frequency: a few times a week Alcohol type: wine Patient Tobacco Use Status: Former Tobacco user e-Cigarette/Vaping Use: Never Used Second Hand Smoke Exposure: Yes service: No Current occupational status: employed 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 Current occupational exposures/hazards: No Sexual orientation: Straight/Heterosexual Gender identity: Female Cognitive needs: No Hearing needs: No Vision needs: No Review of Systems Const Denies fatigue, Denies fever(s), Denies night sweats, Denies poor appetite and Denies weight loss ENT Reports Normal hearing present, Denies dental pain, Denies dysphagia, Denies hearing loss, Denies mouth pain, Denies odynophagia, Denies throat swelling, Denies tongue swelling and Reports other (Dentition adequate) Card Reports no additional complaints Resp Reports no additional complaints GI Details: Reports abdominal pain, Denies melena, Denies bloating, Reports hematochezia, Denies constipation, Denies GI cramping, Denies dysphagia, Denies excessive flatus, Denies early satiety, Denies heartburn, Denies diarrhea, Reports nausea, Denies odynophagia, Denies vomiting and Denies hematemesis Skin/Breast Denies pruritus, Denies lesions, Denies rash and Denies jaundice Neuro Reports Normal hearing present and Denies Abnormal speech present Endo Denies fatigue Aller/Immun Denies throat swelling and Denies tongue swelling Physical Exam Vital Signs: Last Vital Signs BP 123/65 08/03/24 14:58 BMI result Body Mass Index 29.7 Const General: cooperative, no acute distress, well developed and well groomed Nutritional Appearance: well nourished and overweight Orientation/consciousness: oriented to person, oriented to place and oriented to time Limitations: No language barrier HEENT Head: Yes normocephalic and Yes atraumatic Eyes General: appearance normal, both eyes and all related structures Pupils: Equal, round and reactive pupils present Neck Neck: Yes normal visual inspection and Yes no lymphadenopathy Thyroid: Thyroid normal Resp Effort & Inspection: normal respiratory effort and able to speak in complete sentences Auscultation: clear to auscultation bilaterally Cardio Rate: regular rate Rhythm: regular rhythm Heart sounds: Normal, physiologic split S2 sound present Peripheral pulses: radial pulses present and posterior tibial pulses present GI Inspection: No distended, No Abdominal panniculus present, Yes obesity and Yes scar Palpation (GI): Soft to palpation, nontender, no guarding, not rigid and No hepatosplenomegaly present Percussion: Yes normal to percussion Auscultation: normal bowel sounds Rectal Exam - Female: deferred Abdomen image: 2 1. surgical scars 2. Skin General skin exam: no rashes or lesions noted, turgor normal, skin not dry, no jaundice, No spider nevi and no striae Rashes: no rashes Nails: normal Neuro General: oriented to person, oriented to place and oriented to time Cranial nerves: Yes Equal, round and reactive pupils present and Yes Normal hearing present Speech: No Abnormal speech present Extrem General: Yes normal to inspection, No clubbing, No cyanosis and No edema Psych Appearance: grossly normal and well kempt Mental Status: mental status grossly normal Speech and movement: Normal speech and movement present Affect: normal affect Attitude: cooperative Thought process: Normal thought process present and not confabulating Thought content: Normal thought content present Insight: Fair insight present (Psych) and Limited insight present (Psych) Judgement: Fair judgement present (Psych) and Limited judgement present (Psych) Assessment & Plan Assessment & Plan (1) Pre-op examination: Code(s): Z01.818 - Encounter for other preprocedural examination Category: Medical (2) Umbilical pain: Code(s): R10.33 - Periumbilical pain Category: Medical Plan She is anxious to have her next colonoscopy, as she has a paternal first cousin that was recently dx'ed with stage III crc at age 45, she does not know if her father had CRC as he had an unknown cancer that spread and used to poop blood. She is having some RB on the TT with burning and no sustained upper GI problems. SHE HAS INTERMITTENT EPISODES OF SWELLING around the umbilicus and pain. She has a history of a umbilical hernia in her past childhood but she is uncertain if she has 1 at this time. She does not have any redness or heat at the area but it is painful. Will get an ultrasound to try to point her in the right direction and see if there is any concern for herniation. Her asthma is well controlled and no cardiac problems There are no prior problems with anesthesia or sedation. No ID problems. FHX as above, paternal 1st cousin with crc the rest is uncertain. ULTRASOUND OF THE ABDOMEN 08/17/2024 COLONOSCOPY 01/13/2025 BIOPSY Orders: Orders 2 Colonoscopy - GI Use Only 08/03/24 Z01.818 - Encounter for other preprocedural examination US abdomen complete 08/03/24 R10.33 - Periumbilical pain Medications: New 2 sodium,potassium,mag sulfates 17.5-3.13-1.6 gram (Suprep Bowel Prep Kit) 480 mL orally; FOR COLONOSCOPY PREP 354 mL 0RF Coding Level of Care Code New Pt Level 3 (30871) Diagnoses Pre-op examination Z01.818 Umbilical pain R10.33
[2024-08-03 14:58] VITALS: BP 123/65; BMI 29.7
== END 2024-08-03 15:40 | disposition home or self-care (01) ==
PROVIDERS: PCP Internal Medicine; Visit Provider Nurse Practitioner
DX: Z01.818 Encounter for other preprocedural examination (principal); R10.33 Periumbilical pain
CPT/HCPCS: 99203

== ENCOUNTER → 2024-08-03 14:50 | Outpatient (BNVA) | payer OTHER, SELFPAY | PROVIDERS: PCP Internal Medicine; Visit Provider Nurse Practitioner ==

== ENCOUNTER 2024-08-12 06:25 | Outpatient (REF) | payer OTHER, SELFPAY ==
[2024-08-12 10:00] LABS: MANUAL DIFF FLAG NO
[2024-08-12 10:10] LABS: Basophils Percent Auto 0.5 % (0-2); Eosinophils Absolute Auto 0.1 X10*3/uL (0.0-0.4); Eosinophils Percent Auto 2.9 % (0-4); Hemoglobin 13.2 g/dl (12.0-16.0); Imm Gran Abs Auto 0.01 X10*3/uL (0.00-0.03); Imm Gran Pct Auto 0.2 % (0.0-0.4); Lymphocytes Absolute Auto 1.8 X10*3/uL (1.2-4.9); Lymphocytes Percent Auto 41.5 % (20-40); Mean Corpuscular HGB Conc 33.8 g/dl (31.0-35.0); Mean Corpuscular Hemoglobin 32.8 pg (27.0-33.0); Mean Corpuscular Volume 96.8 fL (80.0-98.0); Monocytes Absolute Auto 0.3 X10*3/uL (0.1-1.2); Monocytes Percent Auto 6.6 % (2-11); Neutrophils Absolute Auto 2.1 x10*3/uL (2.0-8.3); Neutrophils Percent Auto 48.3 % (45-73); Platelet Count 232 X10*3/uL (160-400); Red Blood Count 4.03 X10*6/uL (4.20-5.50); Red Cell Distribution Width 11.7 % (11.0-16.0); White Blood Count 4.4 X10*3/uL (4.8-10.8)
[2024-08-12 10:31] LABS: Alanine Aminotransferase 50 U/L (0-31); Albumin Level 4.2 g/dL (3.5-5.0); Alkaline Phosphatase 67 U/L (39-117); Anion Gap 10 (12-20); Aspartate Amino Transferase 28 U/L (5-31); Bilirubin Total 0.9 mg/dL (0.0-1.0); Blood Urea Nitrogen 21 mg/dL (9-16); Calcium 9.5 mg/dL (8.4-10.2); Carbon Dioxide 27 mmol/L (22-29); Chloride 108 mmol/L (96-108); Cholesterol 150 mg/dL (<200); Estimated Glomerular Filt Rate > 60; Glucose Fasting 111 mg/dL (60-99); HDL Cholesterol 41 mg/dL (>40); LDL Cholesterol Calculated 79 mg/dL (<100); Sodium 141 mmol/L (135-145); Total Protein 6.9 g/dL (6.5-8.0); Triglycerides 154 mg/dL (<150)
[2024-08-12 10:35] LABS: Estimated Average Glucose 114 mg/dL; Hemoglobin A1c % 5.6 % (<6.0)
[2024-08-12 10:49] LABS: Vitamin D 25-OH Total 53.1 ng/mL (>30)
== END 2024-08-12 06:26 | disposition home or self-care (01) ==
LOC: HO.HMGCLDS 06:25
PROVIDERS: PCP Internal Medicine; Visit Provider Internal Medicine
DX: D64.9 Anemia, unspecified (principal); E55.9 Vitamin D deficiency, unspecified; R73.01 Impaired fasting glucose; E78.00 Pure hypercholesterolemia, unspecified
CPT/HCPCS: 36415; 80053; 80061; 82306; 83036; 84443; 85025

== ENCOUNTER 2024-08-15 14:51 | Outpatient (AMB) | payer OTHER, SELFPAY ==
[2024-08-15 15:06] VITALS: BP 116/80; PULSE 55; O2SAT 98; BMI 30.4
--- NOTE | 2024-08-15 15:06 | A.OFFPC_ITS ---
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 by: Self / Same As Patient Allergies No Known Allergies [No Known Allergies*] Allergy (Verified 08/15/24 16:07) Medication List - Last Reconciled 08/15/24 by Rodo Menon MD albuterol sulfate 90 mcg/actuation 2 puffs inhalation Q6H PRN atorvastatin 20 mg PO DAILY 90 days fluticasone propion-salmeterol 250-50 mcg/dose 1 ea inhalation Q12H multivitamin 1 tab PO DAILY sodium,potassium,mag sulfates 17.5-3.13-1.6 gram (Suprep Bowel Prep Kit) 480 mL orally; FOR COLONOSCOPY PREP Tobacco use date assessed: 08/15/24 Dental Screening Dental Screen Date: 08/15/24 Did you have a dental visit in the last 12 months?: Yes Did you have a dental problem in the last 6 months where you did not have access to dental care?: No Was dental information given to patient?: Patient has dentist HPI Annual Exam HPI Details Patient comes in today for her annual physical examination States that she feels okay except for some pain over the top of her left shoulder lately Thinks that this is from the way she holds her arms (to the side) when she is on her computer at work She denies any headaches or dizziness Denies any chest pains, no SOB No nausea/vomiting, no abdominal pain No change in bowel habits noted She denies any acute urinary symptoms She also has some recurrent rash recently, especially around her neck area She had her follow up labs done a few days ago - to discuss her results She is scheduled for her annual gynecology exam with Dr. Yi on 10/25/2024, for her annual mammogram on 12/17/2024 and for her repeat colonoscopy on 01/13/2025 She last had her BMD done a couple of years ago on 12/05/2021 and will be due for repeat BMD next year [facility] Medical History (Updated 08/22/24 @ 03:47 by Rodo Menon MD) Skipped heart beats Osteopenia Obesity (BMI 30-39.9) Elevated alanine aminotransferase (ALT) level Impaired fasting glucose Moderate persistent asthma without complication Pure hypercholesterolemia Surgical History Hx of colonoscopy (~01/2015) History of section History of removal of cyst History of umbilical hernia repair History of eye surgery Family History Father CAD (coronary artery disease) Hypertension CVD (cardiovascular disease) Melanoma Rectal bleeding Mother Hypertension CVD (cardiovascular disease) Brother Alive and well Paternal Aunt Cervical cancer Heart disease Maternal Aunt Heart disease Family/Other Colon cancer Paternal Aunt Cervical cancer Paternal Grandmother Stomach cancer Social History Household Members: Family Household Members Other:: son Housing: House Alcohol intake: current Alcohol intake frequency: a few times a week Alcohol type: wine Patient Tobacco Use Status: Former Tobacco user e-Cigarette/Vaping Use: Never Used Second Hand Smoke Exposure: Yes service: No Current occupational status: employed 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 1. Little interest or pleasure in doing things: not at all 2. Feeling down, depressed, or hopeless: not at all 3. Trouble falling or staying asleep, or sleeping too much: several days 4. Feeling tired or having little energy: several days 5. Poor appetite or overeating: not at all 6. Feeling bad about yourself - or that you are a failure or have let yourself or your family down: several days 7. Trouble concentrating on things, such as reading the newspaper or watching television: not at all 8. Moving or speaking so slowly that other people could have noticed. Or the opposite - being so fidgety or restless that you have been moving around a lot more than usual: not at all 9. Thoughts that you would be better off or of hurting yourself in some way: not at all Total score: 3 Depression Screening Interpretation: Negative Depression Screening Done: Yes 60659 - PHQ-9 Billing: Yes Source: Developed by Drs. Zhou Roldan, Katiuska Horn, Brandyn Rizvi and colleagues, with an educational leeann from [employer]. Thrive Questionnaire Date Thrive assessed: 08/15/24 I am a: Patient What is your living situation today?: I have a steady place to live Within the past 12 months, did the food you bought not last and you didn't have the money to get more?: Never true Within the past 12 months, did you worry whether your food would run out before you got money to buy more?: Never true Do you have trouble paying for medicines?: No Do you have trouble getting transportation to medical appointments?: No Do you have trouble paying your heating and electricity bill?: No Do you have trouble taking care of your child, family member or friend?: No Do you have trouble with day-to-day activities such as bathing, preparing meals, shopping, managing finances, etc.?: No Are you currently unemployed and looking for a job?: No Are you interested in more education?: No Please select the resources that you would like help with: None Currently or been in a relationship where the following occur: No concerns reported THRIVE Score: 0 AUDIT C Alcohol Use Questionnaire (AUDIT-C) 1. How often do you have a drink containing alcohol?: 2-3 times a week 2. How many drinks containing alcohol do you have on a typical day when you are drinking?: 1 or 2 3. How often do you have six or more drinks on one occasion?: Never Total Score: 3 Score Reviewed/Action Taken: Yes TAHIR-7 AMB Questionnaire TAHIR-7 Date TAHIR - 7 assessed: 08/15/24 Feeling nervous, anxious, or on edge: 0 = Not at all Not being able to stop or control worryin = Not at all Worrying too much about different things: 0 = Not at all Trouble relaxin = Not at all Being so restless that it is hard to sit still: 0 = Not at all Becoming easily annoyed or irritable: 0 = Not at all Feeling afraid as if something awful might happen: 0 = Not at all Total TAHIR-7 score (0-4 normal; 5-9 mild; 10-14 moderate; 15-21 severe): 0 Source: Developed by Drs. Zhou Roldan, Katiuska Horn, Brandyn Rizvi and colleagues, with an educational leeann from [employer]. Review of Systems Const Denies chills, Denies fatigue, Denies fever(s), Denies headache(s) and Denies malaise Eyes Denies blurry vision, Denies change in vision, Denies irritation and Denies itchy eyes ENT Denies dysphagia, Denies dizziness, Denies otalgia, Denies headache(s), Denies nasal congestion, Denies neck pain, Denies odynophagia, Denies sinus pain and Denies sore throat Card Denies chest pain, Denies rapid heart rate, Denies irregular heart rhythm, Denies palpitations and Denies dyspnea Resp Denies chest congestion, Denies cough, Denies dyspnea and Denies wheezing GI Denies abdominal pain, Denies bloating, Denies constipation, Denies dysphagia, Denies heartburn, Denies diarrhea, Denies nausea, Denies odynophagia and Denies vomiting Denies hematuria, Denies urinary frequency, Denies dysuria, Denies urinary incontinence and Denies urinary urgency Musc Denies back pain, Reports arthralgias (in the left shoulder lately - see HPI), Denies joint swelling, Denies muscle weakness and Denies neck pain Skin/Breast Denies breast pain, Denies breast mass, Denies change in pigmentation, Denies lesions, Reports rash (recurrent lately - see HPI) and Denies unusual bruising Neuro Denies dizziness, Denies headache(s) and Denies paresthesias Psych Denies anxiety and Denies depression Endo Denies fatigue and Denies palpitations Jordy/Lymph Denies easy bruising Aller/Immun Denies itchy eyes and Denies wheezing Physical exam (Primary Care) Vital Signs: Last Vital Signs Pulse 55 08/15/24 15:06 BP 116/80 08/15/24 15:06 Pulse Ox 98 08/15/24 15:06 Oxygen Delivery Method Room Air 08/15/24 15:06 BMI result Body Mass Index 30.4 Tobacco/Smoking Status: Tobacco use Status Tobacco use date assessed 08/15/24 08/15/24 15:08 Patient Tobacco Use Status Former Tobacco user 08/15/24 15:08 e-Cigarette/Vaping Use Never Used 08/15/24 15:08 PHQ-9: PHQ-9 Score PHQ-9: Total score 3 08/15/24 16:46 Depression Screening Interpretation: Negative Thrive Assessment: Date of Thrive Assessment Date Thrive assessed 08/15/24 08/15/24 15:08 Currently or been in a relationship where the following occur: No concerns reported Const General: no acute distress, alert and awake Orientation/consciousness: patient oriented x3 HENMT Head: Yes normocephalic and Yes atraumatic Ears: external ears normal, TM's normal bilaterally and EAC's normal General nose exam: No nasal discharge present Face and sinus: Yes normal facial exam and Yes sinuses nontender Teeth and gingiva: dentition normal Throat: Yes posterior oropharynx normal and Yes tonsils normal (no TP congestion) Eyes Eyelids: Yes eyelids normal Conjunctivae: conjunctivae normal Pupils: Equal, round and reactive pupils present EOM: EOMs intact bilaterally Neck Neck: Yes no lymphadenopathy and Yes supple Thyroid: Thyroid normal Resp Auscultation: clear to auscultation bilaterally, no rales and no wheezes Cardio Rate: regular rate Rhythm: regular rhythm Heart sounds: no murmurs GI Palpation (GI): Soft to palpation, nontender and No hepatosplenomegaly present Auscultation: normal bowel sounds General: Yes no CVA tenderness Back/Spine/Pelvis Back: no CVA tenderness Thoracic/Lumbar Spine: thoracic and lumbar spine normal to inspection Skin Lesions: no lesions Rashes: rashes noted (scattered erythematous patchy rash, especially around the neck) Neuro General: patient oriented x3, moves all extremities, no focal motor deficits and CN's II-XI intact bilaterally Cranial nerves: Yes Equal, round and reactive pupils present Cognition (Neuro): normal cognition Gait exam (Neuro): Normal gait present Extrem General: Yes no clubbing, cyanosis or edema Left upper extremity: shoulder/upper arm Details: tenderness (mild - near the acromion of the left shoulder) Results Reviewed Results Reviewed: Laboratory Tests 08/12/24 06:30 WBC 4.4 L Hgb 13.2 Hct 39.0 Plt Count 232 Sodium 141 Potassium 4.0 Creatinine 0.82 Estimated GFR > 60 Fasting Glucose 111 H Hemoglobin A1c % 5.6 AST 28 ALT 50 H Triglycerides 154 H Cholesterol 150 LDL Cholesterol, Calc 79 HDL Cholesterol 41 25-OH Vitamin D Total 53.1 TSH 1.40 Coding Level of Care Code Est Pt Prev Care 40-64y(65737) Diagnoses Annual physical exam Z00.00 Pure hypercholesterolemia E78.00 Moderate persistent asthma without complication J45.40 Impaired fasting glucose R73.01 Elevated alanine aminotransferase (ALT) level R74.01 Osteopenia, unspecified location M85.80 Osteopenia location: unspecified Tendinitis of left shoulder M77.8 Dermatitis L30.9 Overweight (BMI 25.0-29.9) E66.3
== END 2024-08-15 16:11 | disposition home or self-care (01) ==
PROVIDERS: PCP Internal Medicine; Visit Provider Internal Medicine
DX: Z00.00 Encounter for general adult medical examination without abnormal findings (principal); E78.00 Pure hypercholesterolemia, unspecified; J45.40 Moderate persistent asthma, uncomplicated; R73.01 Impaired fasting glucose; R74.01 Elevation of levels of liver transaminase levels; M85.80 Other specified disorders of bone density and structure, unspecified site; M77.8 Other enthesopathies, not elsewhere classified; L30.9 Dermatitis, unspecified; E66.3 Overweight

== ENCOUNTER → 2024-08-15 14:51 | Outpatient (BNVA) | payer OTHER, SELFPAY | PROVIDERS: PCP Internal Medicine; Visit Provider Internal Medicine ==

== ENCOUNTER 2024-08-17 08:19 | Outpatient (REF) | payer OTHER, SELFPAY ==
--- NOTE | ~2024-08-17 | US_ITS ---
EXAMINATION: US ABDOMEN LIMITED CLINICAL INFORMATION: Periumbilical pain, swelling. COMPARISON: CT abdomen and pelvis 07/09/2019. TECHNIQUE: Real-time imaging of the periumbilical region. FINDINGS: There is a small fat-containing hernia in the midline, 1.7 cm inferior to the umbilicus. The fascial defect measures 0.8 cm. A similar finding can be seen on the prior CT abdomen (5:92). US/US abdomen limited IMPRESSION: Small fat-containing hernia. Electronically signed by: Jacky Tran MD 09/29/2024 12:23 PM ANGIE
== END 2024-08-17 08:20 | disposition home or self-care (01) ==
LOC: HO.US 08:19
PROVIDERS: PCP Internal Medicine; Visit Provider Nurse Practitioner
DX: R10.33 Periumbilical pain (principal)
CPT/HCPCS: 76705

== ENCOUNTER 2024-10-25 14:36 | Outpatient (AMB) | payer OTHER, SELFPAY ==
--- NOTE | 2024-10-25 14:45 | A.OFFVIS_ITS ---
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 Complaining of left breast lump Last Pap/HPV was negative in 10/06 Last Mammogram was BI-RADS 1 in 12/09 Last Colonoscopy was done in 01/28, the recommendation was to repeat in 10 years, the patient is scheduled for next screening colonoscopy in 01/10 [facility] Medical History (Updated 10/25/24 @ 15:06 by Yaron Yi MD) Well woman exam Skipped heart beats Osteopenia Obesity (BMI 30-39.9) Elevated alanine aminotransferase (ALT) level Impaired fasting glucose Moderate persistent asthma without complication Pure hypercholesterolemia Surgical History Hx of colonoscopy (~01/2015) History of section History of removal of cyst History of umbilical hernia repair History of eye surgery Family History Father CAD (coronary artery disease) Hypertension CVD (cardiovascular disease) Melanoma Rectal bleeding Mother Hypertension CVD (cardiovascular disease) Brother Alive and well Paternal Aunt Cervical cancer Heart disease Maternal Aunt Heart disease Family/Other Colon cancer Paternal Aunt Cervical cancer Paternal Grandmother Stomach cancer Social History Household Members: Family Household Members Other:: son Housing: House Alcohol intake: current Alcohol intake frequency: a few times a week Alcohol type: wine Patient Tobacco Use Status: Former Tobacco user e-Cigarette/Vaping Use: Never Used Second Hand Smoke Exposure: Yes service: No Current occupational status: employed 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 Current occupational exposures/hazards: No Sexual orientation: Straight/Heterosexual Gender identity: Female Cognitive needs: No Hearing needs: No Vision needs: No Female Reproductive History Menstrual Total pregnancies: 1 Full term: 1 Date of last pap smear: 10/09/21 (negative pap smear, negative hpv ) Date of Mammogram: 12/12/23 (bi rad 1) Date of last Bone Density Screenin12/05/21 Review of Systems Const All systems reviewed & are unremarkable except as noted in HPI and below Card Reports as per HPI Resp Reports as per HPI GI Reports as per HPI and Reports no additional complaints Reports as per HPI Physical Exam Vital Signs: Last Vital Signs BP 110/64 10/25/24 14:50 BMI result Body Mass Index 30.4 Const General: cooperative, healthy appearing and comfortable Chest Chest palpation & inspection: normal inspection of the chest and normal palpation of entire chest wall Breast/axilla inspection: normal inspection of the breasts and normal inspection of the axillae Breast/axilla palpation: normal palpation of the axillae, no axillary lymphadenopathy and other (R breast wnl, left breast lump 1 cm, at 9 o'clock 7 cm from nipple) Resp Effort & Inspection: normal respiratory effort Auscultation: clear to auscultation bilaterally Percussion: percussion normal Cardio Palpation: normal PMI Rate: regular rate Rhythm: regular rhythm Heart sounds: no murmurs and no rubs Peripheral pulses: Peripheral pulses 2+ throughout GI Inspection: Yes normal to inspection Palpation (GI): Soft to palpation, nontender, no guarding, not rigid and No hepatosplenomegaly present Percussion: Yes normal to percussion Auscultation: normal bowel sounds Rectal Exam - Female: deferred General: Yes bladder normal to palpation External Female Exam: No lesion Speculum Exam - Vagina: normal appearance of the vagina, normal palpation, normal vaginal discharge and not erythematous Speculum Exam - Cervix: normal appearance of the cervix and normal palpation Bimanual exam- vagina & uterus: normal bimanual exam, normal palpation, uterine size normal, bladder normal to palpation, consistency normal and normal palpation Bimanual Exam- Adnexa, other: normal adnexae, no masses and no tenderness Assessment & Plan Assessment & Plan (1) Well woman exam: Code(s): Z01.419 - Encounter for gynecological examination (general) (routine) without abnormal findings Category: Medical Plan: Co testing not indicated this year. Counseled the patient about the recommended dietary allowance of 1200 mg of Calcium & 600 IU of vitamin D. Next screening Mammogram scheduled in 01/10. The patient was instructed to perform monthly self-breast exams and schedule annual exam in a year. All questions answered and the patient verbalized understanding. (2) Breast lump on left side at 9 o'clock position: Comment: 7 cm from the nipple Code(s): N63.25 - Unspecified lump in the left breast, overlapping quadrants Category: Medical Plan: Discussed with the patient the finding on left Breast exam 7 cm from the nipple (breast lump) .The differential diagnosis includes but not limited to lump/cyst/pre cancer/cancer or dense breast tissue. The work up includes breast US and diagnostic mammogram and referred the patient for surgical breast consult. Orders: Orders MM tomosynthesis diagnostic BI Today N63.25 - Unspecified lump in the left [address], overlapping quadrants US breast LT complete Today N63.25 - Unspecified lump in the left breast, overlapping quadrants Referrals General Surgery Referral N63.25 - Unspecified lump in the left breast, overlapping quadrants Coding Level of Care Code Est Pt Prev Care 40-64y(41494) Diagnoses Well woman exam Z01.419 Breast lump on left side at 9 o'clock position N63.25
[2024-10-25 14:50] VITALS: BP 110/64; BMI 30.4
== END 2024-10-25 15:14 | disposition home or self-care (01) ==
PROVIDERS: PCP Internal Medicine; Visit Provider Obstetrics & Gynecology
DX: Z01.419 Encounter for gynecological examination (general) (routine) without abnormal findings (principal); N63.25 Unspecified lump in the left breast, overlapping quadrants
CPT/HCPCS: 99396

== ENCOUNTER 2024-11-11 09:30 | Outpatient (REF) | payer OTHER, SELFPAY ==
--- NOTE | ~2024-11-11 | MM_ITS ---
EXAMINATION: MM DIAGNOSTIC DIGITAL BREAST TOMOSYNTHESIS, BILATERAL Limited left breast ultrasound. CLINICAL INFORMATION: Left breast palpable lumps. COMPARISON: Mammography: Comparison is made with relevant prior exams. TECHNIQUE: Digital breast mammography with tomosynthesis is performed in both the craniocaudal and mediolateral oblique views along with computer-aided detection (CAD). Limited left breast ultrasound. FINDINGS: There are scattered areas of fibroglandular density (ACR BI-RADS breast composition Category b). BB marker in the central inner left breast without underlying abnormality. There are no significant masses, abnormal calcifications, or other abnormalities. Targeted color Doppler ultrasound scanning in the area the patient's palpable lump in the left breast from 7-11 o'clock demonstrates normal fibroglandular breast tissue. Results are provided to the patient at time of visit by the technologist. MM/MM tomosynthesis diagnostic BI IMPRESSION: Left: No mammographic or sonographic abnormality to account for the patient's left breast palpable lump. Recommend clinical evaluation and follow-up. Right: Negative. ASSESSMENT: BI-RADS BI-RADS 1 - Negative RECOMMENDATION: 1 year F/U This patient's information was entered into a reminder system with a target due date for their next mammogram. Electronically signed by: Ana Mcdowell DO 11/11/2024 10:32 AM ANGIE WYLIE
== END 2024-11-11 09:31 | disposition home or self-care (01) ==
LOC: HO.MAMMO 09:30
PROVIDERS: PCP Internal Medicine; Visit Provider Obstetrics & Gynecology
DX: N63.25 Unspecified lump in the left breast, overlapping quadrants (principal)
CPT/HCPCS: 76642; 77062; 77066

== ENCOUNTER → 2024-11-11 09:45 | Outpatient (BNV) | payer OTHER, SELFPAY | PROVIDERS: PCP Internal Medicine; Visit Provider Internal Medicine | DX: N63.25 Unspecified lump in the left breast, overlapping quadrants (principal); R92.323 Mammographic fibroglandular density, bilateral breasts; Z97.8 Presence of other specified devices | CPT/HCPCS: 76642; 77062; 77066 ==

== ENCOUNTER 2024-12-09 07:12 | Outpatient (REF) | payer OTHER, SELFPAY ==
[2024-12-09 10:18] LABS: MANUAL DIFF FLAG NO
[2024-12-09 10:25] LABS: Eosinophils Absolute Auto 0.1 X10*3/uL (0.0-0.4); Eosinophils Percent Auto 3.5 % (0-4); Hematocrit 40.9 % (37.0-47.0); Hemoglobin 13.5 g/dl (12.0-16.0); Imm Gran Abs Auto 0.01 X10*3/uL (0.00-0.03); Imm Gran Pct Auto 0.2 % (0.0-0.4); Lymphocytes Absolute Auto 1.6 X10*3/uL (1.2-4.9); Lymphocytes Percent Auto 40.6 % (20-40); Mean Corpuscular Hemoglobin 32.3 pg (27.0-33.0); Mean Corpuscular Volume 97.8 fL (80.0-98.0); Mean Platelet Volume 10.2 fL (9.4-12.3); Monocytes Absolute Auto 0.3 X10*3/uL (0.1-1.2); Monocytes Percent Auto 7.7 % (2-11); Neutrophils Absolute Auto 1.9 x10*3/uL (2.0-8.3); Platelet Count 212 X10*3/uL (160-400); Red Blood Count 4.18 X10*6/uL (4.20-5.50); Red Cell Distribution Width 11.9 % (11.0-16.0)
[2024-12-09 11:57] LABS: Alanine Aminotransferase 69 U/L (0-31); Albumin Level 4.4 g/dL (3.5-5.0); Anion Gap 11 (12-20); Aspartate Amino Transferase 39 U/L (5-31); Bilirubin Total 0.9 mg/dL (0.0-1.0); Blood Urea Nitrogen 15 mg/dL (9-16); Calcium 9.4 mg/dL (8.4-10.2); Carbon Dioxide 27 mmol/L (22-29); Chloride 106 mmol/L (96-108); Cholesterol 159 mg/dL (<200); Estimated Glomerular Filt Rate > 60; Glucose Fasting 104 mg/dL (60-99); HDL Cholesterol 47 mg/dL (>40); LDL Cholesterol Calculated 81 mg/dL (<100); Potassium 4.1 mmol/L (3.3-5.1); Sodium 140 mmol/L (135-145); Total Protein 7.2 g/dL (6.5-8.0); Triglycerides 157 mg/dL (<150)
[2024-12-09 14:20] LABS: Alkaline Phosphatase 63 U/L (39-117)
== END 2024-12-09 07:13 | disposition home or self-care (01) ==
LOC: HO.HMGCLDS 07:12
PROVIDERS: PCP Internal Medicine; Visit Provider Internal Medicine
DX: D64.9 Anemia, unspecified (principal); E78.00 Pure hypercholesterolemia, unspecified
CPT/HCPCS: 36415; 80053; 80061; 85025

== ENCOUNTER 2024-12-19 15:18 | Outpatient (AMB) | payer OTHER, SELFPAY ==
--- NOTE | 2024-12-19 15:33 | MHC.PC.OV ---
Vital Signs 12/19/24 15:35 Height 5 ft 7 in Weight 197 lb 6 oz BMI 30.9 BP 130/78 Blood Pressure Location Lt brachial Position Sitting Pulse 78 Pulse Source Pulse Oximeter Temp 97.5 F Temp Source Skin Pulse Oximetry (%) 97 Oxygen Delivery Method Room Air Intake Visit Reasons: hyperlipidemia Intake Note: Patient is here to follow up on HLD and lab results. Principal Law Clerk Required: No Territory Manager General Sales: Not Required per policy Accompanied by: Self / Same As Patient Allergies No Known Allergies [No Known Allergies*] Allergy (Verified 12/19/24 16:06) Medication List - Last Reconciled 12/19/24 by Rodo Menon MD albuterol sulfate 90 mcg/actuation 2 puffs inhalation Q6H PRN atorvastatin 20 mg PO DAILY 90 days clotrimazole-betamethasone 1-0.05 % 1 appl topical BID 2 weeks fluticasone propion-salmeterol 250-50 mcg/dose 1 ea inhalation Q12H multivitamin 1 tab PO DAILY sodium,potassium,mag sulfates 17.5-3.13-1.6 gram (Suprep Bowel Prep Kit) 480 mL orally; FOR COLONOSCOPY PREP Tobacco use date assessed: 12/19/24 Dental Screening Dental Screen Date: 12/19/24 Did you have a dental visit in the last 12 months?: Yes Did you have a dental problem in the last 6 months where you did not have access to dental care?: No Was dental information given to patient?: Patient has dentist HPI hyperlipidemia HPI Details Patient comes in today for her follow up visit States that she feels okay She denies any headaches or dizziness Denies any chest pains, no SOB No nausea/vomiting, no abdominal pain No change in bowel habits noted Needs her Advair inhaler Rx refilled She had her follow up labs done about 1 to 2 weeks ago - to discuss her results [facility] Medical History (Updated 12/19/24 @ 16:31 by Rodo Menon MD) Elevated LFTs Skipped heart beats Osteopenia Obesity (BMI 30-39.9) Elevated alanine aminotransferase (ALT) level Impaired fasting glucose Moderate persistent asthma without complication Pure hypercholesterolemia Surgical History Hx of colonoscopy (~01/2015) History of section History of removal of cyst History of umbilical hernia repair History of eye surgery Family History Father CAD (coronary artery disease) Hypertension CVD (cardiovascular disease) Melanoma Rectal bleeding Mother Hypertension CVD (cardiovascular disease) Brother Alive and well Paternal Aunt Cervical cancer Heart disease Maternal Aunt Heart disease Family/Other Colon cancer Paternal Aunt Cervical cancer Paternal Grandmother Stomach cancer Social History Household Members: Family Household Members Other:: son Housing: House Alcohol intake: current Alcohol intake frequency: a few times a week Alcohol type: wine Patient Tobacco Use Status: Former Tobacco user e-Cigarette/Vaping Use: Never Used Second Hand Smoke Exposure: Yes service: No Current occupational status: employed 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 1. Little interest or pleasure in doing things: not at all 2. Feeling down, depressed, or hopeless: not at all 3. Trouble falling or staying asleep, or sleeping too much: not at all 4. Feeling tired or having little energy: not at all 5. Poor appetite or overeating: not at all 6. Feeling bad about yourself - or that you are a failure or have let yourself or your family down: not at all 7. Trouble concentrating on things, such as reading the newspaper or watching television: not at all 8. Moving or speaking so slowly that other people could have noticed. Or the opposite - being so fidgety or restless that you have been moving around a lot more than usual: not at all 9. Thoughts that you would be better off or of hurting yourself in some way: not at all Total score: 0 Depression Screening Interpretation: Negative Depression Screening Done: Yes 83016 - PHQ-9 Billing: Yes Source: Developed by Drs. Zhou Roldan, Katiuska Horn, Brandyn Rizvi and colleagues, with an educational leeann from [employer]. Thrive Questionnaire Date Thrive assessed: 12/19/24 I am a: Patient What is your living situation today?: I have a steady place to live Within the past 12 months, did the food you bought not last and you didn't have the money to get more?: Never true Within the past 12 months, did you worry whether your food would run out before you got money to buy more?: Never true Do you have trouble paying for medicines?: No Do you have trouble getting transportation to medical appointments?: No Do you have trouble paying your heating and electricity bill?: No Do you have trouble taking care of your child, family member or friend?: No Do you have trouble with day-to-day activities such as bathing, preparing meals, shopping, managing finances, etc.?: No Are you currently unemployed and looking for a job?: No Are you interested in more education?: No Please select the resources that you would like help with: None Currently or been in a relationship where the following occur: No concerns reported THRIVE Score: 0 AUDIT C Alcohol Use Questionnaire (AUDIT-C) 1. How often do you have a drink containing alcohol?: Monthly or less 2. How many drinks containing alcohol do you have on a typical day when you are drinking?: 1 or 2 3. How often do you have six or more drinks on one occasion?: Monthly Total Score: 3 Score Reviewed/Action Taken: Yes TAIHR-7 AMB Questionnaire TAHIR-7 Date TAHIR - 7 assessed: 12/19/24 Feeling nervous, anxious, or on edge: 0 = Not at all Not being able to stop or control worryin = Not at all Worrying too much about different things: 0 = Not at all Trouble relaxin = Not at all Being so restless that it is hard to sit still: 0 = Not at all Becoming easily annoyed or irritable: 0 = Not at all Feeling afraid as if something awful might happen: 0 = Not at all Total TAHIR-7 score (0-4 normal; 5-9 mild; 10-14 moderate; 15-21 severe): 0 Source: Developed by Drs. Zhou Roldan, Katiuska Horn, Brandyn Rizvi and colleagues, with an educational leeann from [employer]. Review of Systems Const Denies chills, Denies fatigue, Denies fever(s) and Denies headache(s) ENT Denies dysphagia, Denies dizziness, Denies otalgia, Denies headache(s), Denies neck pain, Denies odynophagia and Denies sore throat Card Denies chest pain, Denies irregular heart rhythm, Denies palpitations and Denies dyspnea Resp Denies chest congestion, Denies cough and Denies dyspnea GI Denies abdominal pain, Denies constipation, Denies dysphagia, Denies heartburn, Denies diarrhea, Denies nausea, Denies odynophagia and Denies vomiting Denies urinary frequency, Denies dysuria and Denies urinary urgency Musc Denies back pain, Reports arthralgias (on and off in the left shoulder) and Denies neck pain Skin/Breast Denies rash Neuro Denies dizziness, Denies headache(s) and Denies paresthesias Psych Denies anxiety and Denies depression Endo Denies fatigue and Denies palpitations Jordy/Lymph Denies easy bruising Physical exam (Primary Care) Vital Signs: Last Vital Signs Temp 97.5 F 12/19/24 15:35 Pulse 78 12/19/24 15:35 BP 130/78 12/19/24 15:35 Pulse Ox 97 12/19/24 15:35 Oxygen Delivery Method Room Air 12/19/24 15:35 BMI result Body Mass Index 30.9 Tobacco/Smoking Status: Tobacco use Status Tobacco use date assessed 12/19/24 12/19/24 15:37 Patient Tobacco Use Status Former Tobacco user 12/19/24 15:37 e-Cigarette/Vaping Use Never Used 12/19/24 15:37 PHQ-9: PHQ-9 Score PHQ-9: Total score 0 12/19/24 16:31 Depression Screening Interpretation: Negative Thrive Assessment: Date of Thrive Assessment Date Thrive assessed 12/19/24 12/19/24 15:37 Currently or been in a relationship where the following occur: No concerns reported Const General: no acute distress and alert HENMT Ears: TM's normal bilaterally and EAC's normal Throat: Yes posterior oropharynx normal and Yes tonsils normal (no TP congestion) Neck Neck: Yes supple and No lymphadenopathy Thyroid: Thyroid normal Resp Auscultation: clear to auscultation bilaterally, no rales and no wheezes Cardio Rate: regular rate Rhythm: regular rhythm Heart sounds: no murmurs GI Palpation (GI): Soft to palpation and nontender Auscultation: normal bowel sounds General: Yes no CVA tenderness Back/Spine/Pelvis Back: no CVA tenderness Thoracic/Lumbar Spine: No lumbar spinal tenderness Skin Rashes: no rashes Extrem General: Yes no clubbing, cyanosis or edema Left upper extremity: shoulder/upper arm Details: tenderness (mild - near the acromion of the left shoulder) Results Reviewed Results Reviewed: Laboratory Tests 12/09/24 07:15 WBC 4.0 L Hgb 13.5 Hct 40.9 Plt Count 212 Sodium 140 Potassium 4.1 Creatinine 0.84 Estimated GFR > 60 Fasting Glucose 104 H Calcium 9.4 AST 39 H ALT 69 H Triglycerides 157 H Cholesterol 159 LDL Cholesterol, Calc 81 HDL Cholesterol 47 Coding Level of Care Code Est Pt Level 4 (91378) Diagnoses Pure hypercholesterolemia E78.00 Moderate persistent asthma without complication J45.40 Impaired fasting glucose R73.01 Elevated LFTs R79.89 Osteopenia, unspecified location M85.80 Osteopenia location: unspecified Obesity (BMI 30-39.9) E66.9 Additional Codes PHQ-9 - 94115 - PHQ-9 Billing: Yes ([id number]) Assessment & Plan Assessment & Plan (1) Pure hypercholesterolemia: Code(s): E78.00 - Pure hypercholesterolemia, unspecified Category: Medical Plan: Results of her labs done about 1 to 2 weeks ago reviewed and discussed with patient Reinforced low cholesterol diet Continue Atorvastatin 20 mg QD Will recheck her labs and fasting lipids in 4 months for follow up (2) Moderate persistent asthma without complication: Code(s): J45.40 - Moderate persistent asthma, uncomplicated Category: Medical Plan: Controlled Continue Advair Diskus 250-50 mcg 1 puff BID (Rx refilled) and Albuterol HFA 108 mcg 2 puffs 4 times a day as needed (3) Impaired fasting glucose: Code(s): R73.01 - Impaired fasting glucose Category: Medical Plan: Her HgbA1c was normal at 5.6% when last checked in July 2024; FBS was at 104 mg/dl on her recent labs Reinforced low calorie/low carb diet; exercise as tolerated (4) Elevated LFTs: Code(s): R79.89 - Other specified abnormal findings of blood chemistry Category: Medical Plan: Patient is advised that her LFTs have again increased slightly from previous Discussed with patient that this is most likely due to a combination of her weight and cholesterol levels as well as her statin Rx but also due to her alcohol intake (she admits to drinking some wine everyday) Will continue to monitor her LFTs regularly for now; will also check her liver fibrosis panel with her next labs in a few months for further evaluation (5) Osteopenia: Code(s): M85.80 - Other specified disorders of bone density and structure, unspecified site Category: Medical Qualifiers: Osteopenia location: unspecified Qualified Code(s): M85.80 - Other specified disorders of bone density and structure, unspecified site Plan: Repeat BMD done in November 2021 revealed (+) osteopenia with a T score of -1.2; baseline BMD done on 03/16/2013 was normal Patient is again encouraged to exercise regularly and stay active to help slow down her BMD decline Continue taking oral Calcium and Vitamin D supplements daily Will continue to monitor her BMD and repeat scan every 2 to 3 years - she will be due for repeat BMD later this year (6) Obesity (BMI 30-39.9): Code(s): E66.9 - Obesity, unspecified Category: Medical Plan: Reinforced diet/exercise as tolerated/lose weight Plan Follow up in 4 months Orders: Orders Complete Blood Count Auto Diff 4 Months D64.9 - Anemia, unspecified Vitamin D 25-OH Total 4 Months E55.9 - Vitamin D deficiency, unspecified UA CC w/rflx Micro + Cult 4 Months R30.0 - Dysuria Comprehensive [place]. Panel Fast 4 Months E78.00 - Pure hypercholesterolemia, unspecified Lipid Panel 4 Months E78.00 - Pure hypercholesterolemia, unspecified Hemoglobin A1c 4 Months R73.01 - Impaired fasting glucose TSH reflex Free T4 4 Months E78.00 - Pure hypercholesterolemia, unspecified Liver Fibrosis Pnl 4 Months R79.89 - Other specified abnormal findings of blood chemistry Medications: Refilled fluticasone propion-salmeterol 250-50 mcg/dose 1 ea inhalation Q12H 180 caps 3RF
[2024-12-19 15:35] VITALS: BP 130/78; PULSE 78; TEMP 36.4; O2SAT 97; BMI 30.9
== END 2024-12-19 16:21 | disposition home or self-care (01) ==
PROVIDERS: PCP Internal Medicine; Visit Provider Internal Medicine
DX: E78.00 Pure hypercholesterolemia, unspecified (principal); J45.40 Moderate persistent asthma, uncomplicated; E66.9 Obesity, unspecified; Z68.30 Body mass index [BMI] 30.0-30.9, adult; R79.89 Other specified abnormal findings of blood chemistry; R73.01 Impaired fasting glucose; M85.80 Other specified disorders of bone density and structure, unspecified site

== ENCOUNTER → 2024-12-19 15:18 | Outpatient (BNVA) | payer OTHER, SELFPAY | PROVIDERS: PCP Internal Medicine; Visit Provider Internal Medicine | DX: E78.00 Pure hypercholesterolemia, unspecified (principal); J45.40 Moderate persistent asthma, uncomplicated; R73.01 Impaired fasting glucose; R79.89 Other specified abnormal findings of blood chemistry; M85.80 Other specified disorders of bone density and structure, unspecified site; E66.9 Obesity, unspecified; Z68.30 Body mass index [BMI] 30.0-30.9, adult; Z79.899 Other long term (current) drug therapy | CPT/HCPCS: 96127 ==

== ENCOUNTER 2025-01-13 06:56 | Day surgery (SDC) | payer OTHER, SELFPAY ==
--- NOTE | 2025-01-12 10:55 | HO.ANESPROP2 ---
HPI - Anesthesia Eval Consult details Narrative: 59yo F for Colonoscopy PMF Active Problems Active Problems: All Active Problems Elevated LFTs (Acute) Breast lump on left side at 9 o'clock position (Acute) Well woman exam (Acute) Tendinitis of left shoulder (Acute) Dermatitis (Acute) Umbilical pain (Acute) Pre-op examination (Acute) Family history of CML (chronic monocytic leukemia) (Acute) Sinusitis (Acute) Osteopenia (Acute) Ecchymosis (Acute) Palpitations (Acute) Chest discomfort (Acute) Low vitamin D level (Acute) Bradycardia, sinus (Acute) Elevated alanine aminotransferase (ALT) level (Acute) Obesity (BMI 30-39.9) (Acute) Endocervical polyp (Acute) Postmenopausal bleeding (Acute) Overweight (BMI 25.0-29.9) (Acute) Impaired fasting glucose (Acute) Moderate persistent asthma without complication (Acute) Pure hypercholesterolemia (Acute) Past Medical History Medical History (Updated 01/16/25 @ 15:28 by Bhavesh Bains MD) Elevated LFTs Skipped heart beats Osteopenia Obesity (BMI 30-39.9) Elevated alanine aminotransferase (ALT) level Impaired fasting glucose Moderate persistent asthma without complication Pure hypercholesterolemia Family History Family History Father CAD (coronary artery disease) Hypertension CVD (cardiovascular disease) Melanoma Rectal bleeding Mother Hypertension CVD (cardiovascular disease) Brother Alive and well Paternal Aunt Cervical cancer Heart disease Maternal Aunt Heart disease Family/Other Colon cancer Paternal Aunt Cervical cancer Paternal Grandmother Stomach cancer Surgical History Surgical History Hx of colonoscopy (~01/2015) History of section History of removal of cyst History of umbilical hernia repair History of eye surgery Social History Social History Household Members: Family Household Members Other:: son Housing: House Are you a primary student career development specialist to a significant other at home: No Do you presently have visiting nurse or other home services: No Alcohol intake: current Alcohol intake frequency: a few times a week Alcohol type: wine Patient Tobacco Use Status: Former Tobacco user e-Cigarette/Vaping Use: Never Used Second Hand Smoke Exposure: Yes service: No Current occupational status: employed 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
[2025-01-13] MEDS: Lactated Ringers 1,000 ML 100 ML IVCONT (07:14)
[2025-01-13 07:23] VITALS: BP 131/78; PULSE 76; RESP 18; TEMP 36.8; O2SAT 97
--- NOTE | 2025-01-13 08:13 | P.HPSUR_ITS ---
Pre-Procedural Eval Section A - 24 Hr Update-Section A only Date of Service: 01/13/25 Section B - Complete if H&P > 30 days Chief Complaint: Encounter for screening for malignant neoplasm of Relevant Family History (Specify if Yes): No Relevant Social History: None Present Medications: see Short Stay Collaborative assessment Medical History: Significant History (Elevated LFTs Skipped heart beats Osteop enia Obesity (BMI 30-39.9) Elevated alanine aminotransferase (ALT) level Impaired fasting glucose Moderate persistent asthma without complication Pure hypercholesterolemia) History of Previous Operations: Relevant previous surgery/procedure and date(s) (Hx of colonoscopy (~01/2015) History of section History of removal of cyst History of umbilical hernia repair History of eye surgery) Allergies: Allergies Allergy/AdvReac Type Severity Reaction Status Date / Time No Known Allergies Allergy Verified 01/13/25 07:09 [No Known Allergies*] Review of Systems Sugical H&P ROS: Negative: Constitution, Cardiovascular, Respiratory, Neurolog ical, Psychiatric, Hem-Onc, Allergic/Immunologic, Gastrointestinal, Genitourinary, Musculoskeletal, Integumentary, Endocrine and Eyes/Ears/Nose/Throat Exam Surgical H&P Exam: Normal: HEENT, Normal: Heart, Normal: Lungs, Normal: Extremities, Normal: Abdomen, Normal: Skin and Normal: Neurological Plan Diagnosis/Plan: Unchanged I have reviewed the history and physical and performed a pertinent physical examination on my patient. No changes have occurred unless specified. Time Spent With Patient Time: Total time managing care of this patient today ____ minutes.
--- NOTE | 2025-01-13 08:44 | P.OPN-COLO_ITS ---
Colonoscopy Operative Note Operative Note Date of Service: 01/13/25 Narrative: Operative Information Procedure Description: Colonoscopy Indication: screening Anesthesia: MAC COLONOSCOPY Instrument: Olympus variable stiffness pediatric scope 190L Colonoscopy Monitoring: Vital signs and clinical assessment, continuous EKG monitoring, Pulse oximetry, Carbon Dioxide monitoring and blood pressure monitoring were done throughout the procedure. Colon withdrawal time was 11 minutes. Procedure: The patient was placed in the left lateral decubitis position and pre-procedure medications were administered. After a digital rectal examination of the ano-rectum, the video colonoscope was inserted into the rectum and advanced through the colon to the cecum/TI. The colonoscope was slowly withdrawn in a retrograde panoramic fashion and the colon mucosa was carefully examined including a retroflexed view of the rectum. Findings and interventions are described below. Procedure Difficulty: easy Findings: Terminal Ileum-normal Cecum:normal Ascending Colon: 4-5 sessile polyp removed with cold forceps Transverse Colon -normal Descending Colon:normal Sigmoid Colon: 5-7 mm sessile polyp removed with cold snare Rectum: Retroflexion with small internal hemorrhoids seen, grade I Anorectum - normal Intervention: cold forceps, cold snare Colon preparation: [place] Bowel Preparation Scale Right colon; 2 (few areas of fair prep) Transverse colon: 2 Left colon; 2 (0 = Unprepared colon segment with mucosa not seen due to solid stool that cannot be cleared. 1 = Portion of mucosa of the colon segment seen, but other areas of the colon segment not well seen due to staining, residual stool and/or opaque liquid. 2 = Minor amount of residual staining, small fragments of stool and/or opaque liquid, but mucosa of colon segment seen well. 3 = Entire mucosa of colon segment seen well with no residual staining, small fragments of stool or opaque liquid) Impression and Post Procedure Diagnosis: colon polyps x 2 internal hemorrhoids Plan: High fiber diet leaflet Avoid straining at stool, epsom salts and sitz bath, anusol supps or cream Repeat Colonoscopy in 5-6 years due to polyps and areas of fair prep on the right or earlier if clinically indicated she was c/o itching ligia anal area, erythema noted, will try fungal cream and sitz bath with epsom salts. should avoid scented detergents Above findings were reviewed with the patient and relevant handouts were provided if indicated.
[2025-01-13 08:51] VITALS: BP 99/61; PULSE 94; RESP 15; TEMP 36.7; O2SAT 97
[2025-01-13 09:06] VITALS: BP 110/71; PULSE 74; RESP 15; TEMP 36.7; O2SAT 99
== END 2025-01-13 09:30 | disposition home or self-care (01) ==
PROVIDERS: PCP Internal Medicine; Visit Provider Internal Medicine Gastroenterology
PROC: 0DJD8ZZ Inspection of Lower Intestinal Tract, Via Natural or Artificial Opening Endoscopic (ICD-10-PCS; CPT 45378; principal; 2025-01-13 08:10)
DX: Z12.11 Encounter for screening for malignant neoplasm of colon (principal); D12.2 Benign neoplasm of ascending colon; K64.0 First degree hemorrhoids; J45.909 Unspecified asthma, uncomplicated; E78.00 Pure hypercholesterolemia, unspecified; Z79.02 Long term (current) use of antithrombotics/antiplatelets; Z79.899 Other long term (current) drug therapy
CPT/HCPCS: 45385; 45380; 88305; J2003; J2704

== ENCOUNTER → 2025-01-13 06:56 | Outpatient (BNV) | payer OTHER, SELFPAY | PROVIDERS: PCP Internal Medicine; Visit Provider Internal Medicine Gastroenterology | DX: Z12.11 Encounter for screening for malignant neoplasm of colon (principal); D12.2 Benign neoplasm of ascending colon; K63.5 Polyp of colon; K64.0 First degree hemorrhoids | CPT/HCPCS: 45380; 45385 ==

== ENCOUNTER 2025-01-17 07:41 | Outpatient (REF) | payer OTHER, SELFPAY ==
--- OUTSIDE RECORDS SUMMARY | 2025-01-17 07:44 | XMS_ITS | Patient Health Record ---
Author Organization [facility] Address [address] [place] [address] Care Team Providers Care Relationship Advisor Name Role Phone Sinan LIRA, [place] Primary Care Provider Tricia Hunt Unavailable [phone] Allergies No Known Allergies Reason For Referral No Information Medications Medication SIG (Take, Route, Frequency, Duration) Notes Start Date End Date Status ProAir HFA 108 (90 Base) MCG/ACT 2 puffs as needed Inhalation every 4 hrs Unknown Advair Diskus 100-50 MCG/DOSE 1 puff Inhalation every 12 hrs Active Cephalexin 500 MG 1 capsule Orally ashley ry 12 hrs for 7 days Not-Taking Atorvastatin Calcium 20 MG 1 tablet Orally Once a day for 30 day(s) Active Albuterol Active Flonase 50 MCG/ACT 2 sprays Nasally Onc e a day for 30 day(s) Unknown Immunizations Vaccine Route Administration Date Status Comme nts COVID-19 Pfizer BioNTech Vaccine Unknown 01/13/2021 Administered Second Dose: Social History Tobacco Use: Social History Observation Description Date Details (start date - stop date) Current Smoker NA - NA Tobacco Use/Smoking Question Answer Notes Are you a: current smoker How often do you smoke cigarettes? some days, bu t not every day How many cigarettes a day do you smoke? 5 or les s Alcohol Screen Question Answer Notes Did you have a drink contain ing alcohol in the past year? Yes How often did you have a dri nk containing alcohol in the past year? 4 or more times a week (4 points) How many drinks did you have on a typical day when you were drinking in the past year? 1 or 2 drinks (0 point) Points 4 Interpretation Positive Tobacco use other than smoking: Question Answer Notes Are you an other tobacco user? No Problems Problem Type SNOMED Code ICD Code Onset Dates Problem Status W/U Status Risk Notes Problem Hammer toe (099911767) Hammer toe (735.4) Active confirmed Problem 119027910477276 Contracture , right foot (M24.574) Active confirmed Problem 697029543 Hammer toe of right foot (M20.41) Active confirmed Problem 109967074 Hammer toe of left foot (M20.42) Active confirmed Encounters Encounter Location Date Provider Diagnosis [facility] [address] [place] [address] 08/01/2024 Tricia Alfaro Plan Of Treatment Pending Test Test Name Order Date X ray : Foot, left 3V 06/12/2023 X ray : Foot, right 3V 06/12/2023 X ray : Foot, right 3V 01/22/2023 Insurance Providers Payer Name Payer Address Payer Phone Subscriber Number Group Number Insured Name Patient Relationship to Insured Coverage Start Date Coverage End Date [facility] [address] [place] [address] [id number] Carisa Amado Self - patient is the insured Medical (General) History Medical History History ICD Code asthma chicken pox measles mumps Anxiety Headaches Psoriasis chronic sinusitis Surgical History Surgery Date(Month/Year) section hernia ganglion cyst removal eye surgery 1994
--- OUTSIDE RECORDS SUMMARY | 2025-01-17 07:44 | XMS_ITS ---
Author Organization [facility] Address [address] [place] [address] Care Team Providers Care Job Development Specialist Name Role Phone Sinan LIRA, [place] Primary Care Provider Unava ilTricia Mcgrath [phone] REASON FOR VISIT buy 1 LG toe buddie Encounters Encounter Location Date Provider Diagnosis [facility] [address] [place] [address] 08/01/2024 Tricia Alfaro Plan Of Treatment No Information Progress Notes * Carisa HUTCHINS PDO B:1965 (59 yo F)Acc No.[id number]:08/01/2024 Patient:?Carisa Hutchins :1965???Age:59 Y???Sex:Female Address:[address] [place] [address], [address] * true * Date:? Generated for Printi steve/Richar/eTransmitting on:?01/17/2025 07:43 AM EST
[2025-01-17 09:56] LABS: MANUAL DIFF FLAG NO
[2025-01-17 10:03] LABS: Appearance Urine Clear; Color Urine Yellow; Glucose Urine UA Negative (Negative); Leukocyte Esterase Urine Moderate (2+) (Negative); Nitrite Urine Negative (Negative); PH 5.5 (5.0-9.0); UMIC TRIGGER UACC YES; Urine Blood Negative (Negative); Urine Ketones Negative (Negative); Urine Protein Negative (Neg-Trace)
[2025-01-17 10:04] LABS: Basophils Percent Auto 0.6 % (0-2); Eosinophils Absolute Auto 0.2 X10*3/uL (0.0-0.4); Eosinophils Percent Auto 3.6 % (0-4); Hematocrit 40.1 % (37.0-47.0); Hemoglobin 13.5 g/dl (12.0-16.0); Imm Gran Abs Auto 0.05 X10*3/uL (0.00-0.03); Lymphocytes Absolute Auto 1.7 X10*3/uL (1.2-4.9); Lymphocytes Percent Auto 34.7 % (20-40); Mean Corpuscular HGB Conc 33.7 g/dl (31.0-35.0); Mean Corpuscular Hemoglobin 32.5 pg (27.0-33.0); Mean Corpuscular Volume 96.6 fL (80.0-98.0); Mean Platelet Volume 9.9 fL (9.4-12.3); Monocytes Absolute Auto 0.3 X10*3/uL (0.1-1.2); Neutrophils Absolute Auto 2.7 x10*3/uL (2.0-8.3); Neutrophils Percent Auto 54.1 % (45-73); Platelet Count 207 X10*3/uL (160-400); Red Blood Count 4.15 X10*6/uL (4.20-5.50); Red Cell Distribution Width 11.9 % (11.0-16.0)
[2025-01-17 10:07] LABS: Bacteria Urine None Seen (None Seen); Hyaline Casts Urine 0-2 /LPF (0-2); RBC Urine 0-2 /HPF (0-2); Squamous Epithelial Cell Urine 0-2 /HPF (0-2); UACC Culture Trigger YES
[2025-01-17 10:16] LABS: Alanine Aminotransferase 68 U/L (0-31); Albumin Level 4.3 g/dL (3.5-5.0); Alkaline Phosphatase 73 U/L (39-117); Anion Gap 12 (12-20); Aspartate Amino Transferase 64 U/L (5-31); Bilirubin Total 0.9 mg/dL (0.0-1.0); Blood Urea Nitrogen 17 mg/dL (9-16); C Reactive Protein 0.17 mg/dL (< or = 0.50); Calcium 9.3 mg/dL (8.4-10.2); Carbon Dioxide 26 mmol/L (22-29); Chloride 108 mmol/L (96-108); Estimated Glomerular Filt Rate > 60; Glucose Random 97 mg/dL (60-115); Potassium 3.8 mmol/L (3.3-5.1); Sodium 142 mmol/L (135-145); Total Protein 7.4 g/dL (6.5-8.0)
== END 2025-01-17 07:42 | disposition home or self-care (01) ==
LOC: HO.HMGCLDS 07:41
PROVIDERS: PCP Internal Medicine; Visit Provider Internal Medicine Gastroenterology
DX: R19.7 Diarrhea, unspecified (principal); K75.81 Nonalcoholic steatohepatitis (NASH); R30.0 Dysuria
CPT/HCPCS: 36415; 80053; 81001; 81003; 85025; 86140; 87086; 87147

== ENCOUNTER 2025-01-19 05:35 | Outpatient (REF) | payer OTHER, SELFPAY ==
--- OUTSIDE RECORDS SUMMARY | 2025-01-19 07:23 | XMS_ITS ---
Author Organization [facility] Address [address] [place] [address] Care Team Providers Care Job Setter Name Role Phone Sinan LIRA, [place] Primary Care Provider Unava ilTricia Mcgrath [phone] REASON FOR VISIT buy 1 LG toe buddie Encounters Encounter Location Date Provider Diagnosis [facility] [address] [place] [address] 08/01/2024 Tricia Alfaro Plan Of Treatment No Information Progress Notes * Carisa HUTCHINS PDO B:1965 (59 yo F)Acc No.[id number]:08/01/2024 Patient:?Carisa Hutchins :1965???Age:59 Y???Sex:Female Address:[address] [place] [address], [address] * true * Date:? Generated for Normai steve/Richar/eTransmitting on:?01/19/2025 07:23 AM EST
[2025-01-19 12:32] LABS: CDiff Gene PCR NEGATIVE (Negative)
[2025-01-19 12:46] LABS: Adenovirus F 40/41 Not Detected (Not Detect.); Astrovirus Not Detected (Not Detect.); Campylobacter Not Detected (Not Detect.); Cryptosporidium Not Detected (Not Detect.); Cyclospora cayetanensis Not Detected (Not Detect.); E. coli EAEC Not Detected (Not Detect.); E. coli EPEC Not Detected (Not Detect.); E. coli ETEC Not Detected (Not Detect.); E. coli STEC Not Detected (Not Detect.); Entamoeba histolytica Not Detected (Not Detect.); Giardia lamblia Not Detected (Not Detect.); Norovirus GI/GII Not Detected (Not Detect.); Plesiomonas shigelloides Not Detected (Not Detect.); Rotavirus A Not Detected (Not Detect.); Salmonella Not Detected (Not Detect.); Sapovirus Not Detected (Not Detect.); Shigella sp./EIEC Not Detected (Not Detect.); Vibrio Not Detected (Not Detect.); Vibrio Cholerae Not Detected (Not Detect.); Yersinia enterocolitica Not Detected (Not Detect.)
== END 2025-01-19 05:36 | disposition home or self-care (01) ==
LOC: HO.HMGCLNP 05:35
PROVIDERS: PCP Internal Medicine; Visit Provider Internal Medicine Gastroenterology
DX: R19.7 Diarrhea, unspecified (principal)
CPT/HCPCS: 87493; 87507

== ENCOUNTER 2025-04-25 06:30 | Outpatient (REF) | payer OTHER, SELFPAY ==
--- OUTSIDE RECORDS SUMMARY | 2025-04-25 06:33 | XMS_ITS | Patient Health Record ---
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) Active confirmed Problem 766103055 Hammer toe of right foot (M20.41) Active confirmed Problem [id number] Hammer toe of left foot (M20.42) Active confirmed Encounters Encounter Location Date Provider Diagnosis [facility] [address] [place] [address] 08/01/2024 Tricia Alfaro Plan Of Treatment Pending Test Test Name Order Date X ray : Foot, left 3V 06/12/2023 X ray : Foot, right 3V 06/12/2023 X ray : Foot, right 3V 01/22/2023 Insurance Providers Payer Name Payer Address Payer Phone Subscriber Number Group Number Insured Name Patient Relationship to Insured Coverage Start Date Coverage End Date [facility] [address] [place] [address] [id number] Carisa Amado Self - patient is the insured Medical (General) History Medical History History ICD Code asthma chicken pox measles mumps Anxiety Headaches Psoriasis chronic sinusitis Surgical History Surgery Date(Month/Year) section hernia ganglion cyst removal eye surgery 1994
[2025-04-25 10:30] LABS: MANUAL DIFF FLAG NO
[2025-04-25 10:31] LABS: Basophils Percent Auto 0.5 % (0-2); Eosinophils Absolute Auto 0.2 X10*3/uL (0.0-0.4); Eosinophils Percent Auto 3.7 % (0-4); Hematocrit 40.4 % (37.0-47.0); Hemoglobin 13.4 g/dl (12.0-16.0); Lymphocytes Absolute Auto 1.9 X10*3/uL (1.2-4.9); Lymphocytes Percent Auto 47.2 % (20-40); Mean Corpuscular HGB Conc 33.2 g/dl (31.0-35.0); Mean Corpuscular Hemoglobin 32.1 pg (27.0-33.0); Mean Corpuscular Volume 96.9 fL (80.0-98.0); Mean Platelet Volume 10.5 fL (9.4-12.3); Monocytes Absolute Auto 0.3 X10*3/uL (0.1-1.2); Monocytes Percent Auto 7.2 % (2-11); Neutrophils Absolute Auto 1.7 x10*3/uL (2.0-8.3); Neutrophils Percent Auto 41.4 % (45-73); Platelet Count 209 X10*3/uL (160-400); Red Blood Count 4.17 X10*6/uL (4.20-5.50); Red Cell Distribution Width 12.1 % (11.0-16.0); White Blood Count 4.1 X10*3/uL (4.8-10.8)
[2025-04-25 10:43] LABS: Estimated Average Glucose 117 mg/dL; Hemoglobin A1C 139.6433 umol/L; Hemoglobin A1c % 5.7 % (<6.0)
[2025-04-25 10:50] LABS: Alanine Aminotransferase 64 U/L (0-31); Albumin Level 4.4 g/dL (3.5-5.0); Alkaline Phosphatase 67 U/L (39-117); Anion Gap 9 (12-20); Aspartate Amino Transferase 39 U/L (5-31); Bilirubin Total 0.7 mg/dL (0.0-1.0); Blood Urea Nitrogen 21 mg/dL (9-16); Calcium 9.4 mg/dL (8.4-10.2); Carbon Dioxide 29 mmol/L (22-29); Chloride 107 mmol/L (96-108); Cholesterol 176 mg/dL (<200); Estimated Glomerular Filt Rate > 60; Glucose Fasting 113 mg/dL (60-99); HDL Cholesterol 45 mg/dL (>40); LDL Cholesterol Calculated 92 mg/dL (<100); Sodium 141 mmol/L (135-145); Total Protein 6.9 g/dL (6.5-8.0); Triglycerides 198 mg/dL (<150)
[2025-04-25 11:09] LABS: TSH reflex Free T4 1.37 uIU/mL (0.32-4.0); Vitamin D 25-OH Total 67.3 ng/mL (>30)
[2025-05-04 18:03] LABS: FIB-ALT 45 U/L (6-29); FIB-Alpha-2-Macroglobulin 154 mg/dL (106-279); FIB-Apolipoprotein A1 174 mg/dL (101-198); FIB-GGT 27 U/L (3-65); FIB-Haptoglobin 76 mg/dL (43-212); FIB-Total Bilirubin 0.5 mg/dL (0.2-1.2); Liver Fibrosis Score 0.14; Liver Fibrosis Stage F0; Nec Inflam Act Grade A0-A1; Nec Inflam Act Score 0.21
== END 2025-04-25 06:31 | disposition home or self-care (01) ==
LOC: HO.HMGCLDS 06:30
PROVIDERS: PCP Internal Medicine; Visit Provider Internal Medicine
DX: E78.00 Pure hypercholesterolemia, unspecified (principal); R79.89 Other specified abnormal findings of blood chemistry; D64.9 Anemia, unspecified; E55.9 Vitamin D deficiency, unspecified; R73.01 Impaired fasting glucose
CPT/HCPCS: 36415; 80053; 80061; 81596; 82306; 83036; 84443; 85025

== ENCOUNTER 2025-05-01 13:05 | Outpatient (REF) | payer OTHER, SELFPAY ==
[2025-05-01 16:09] LABS: Appearance Urine Clear; Color Urine Yellow; Glucose Urine UA Negative (Negative); Leukocyte Esterase Urine Trace (Negative); Nitrite Urine Negative (Negative); PH 6.5 (5.0-9.0); UMIC TRIGGER UACC YES; Urine Blood Negative (Negative); Urine Ketones Negative (Negative); Urine Protein Negative (Neg-Trace)
[2025-05-01 16:14] LABS: Bacteria Urine None Seen (None Seen); Hyaline Casts Urine 0-2 /LPF (0-2); RBC Urine 0-2 /HPF (0-2); Squamous Epithelial Cell Urine 0-2 /HPF (0-2); WBC Urine 0-5 /HPF (0-5)
== END 2025-05-01 13:06 | disposition home or self-care (01) ==
LOC: HO.HMGCLNP 13:05
PROVIDERS: PCP Internal Medicine; Visit Provider Internal Medicine
DX: R30.0 Dysuria (principal)
CPT/HCPCS: 81001

== ENCOUNTER 2025-05-23 10:24 | Outpatient (AMB) | payer OTHER, SELFPAY ==
--- NOTE | 2025-05-23 10:23 | MHC.PC.OV ---
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: No Accompanied by: Self / Same As Patient Allergies No Known Allergies (No Known Allergies*) Allergy (Verified 05/23/25 11:53) Medication List - Last Reconciled 05/23/25 by Rodo Menon MD albuterol sulfate 90 mcg/actuation 2 puffs inhalation Q6H PRN atorvastatin 20 mg PO DAILY 90 days clotrimazole 1% 1 appl topical BID clotrimazole-betamethasone 1-0.05 % 1 appl topical BID 2 weeks fluticasone propion-salmeterol 250-50 mcg/dose 1 ea inhalation Q12H multivitamin 1 tab PO DAILY nitrofurantoin monohyd/m-cryst 100 mg (Macrobid) 100 mg PO Q12H 7 days Tobacco use date assessed: 05/23/25 Dental Screening Dental Screen Date: 05/23/25 HPI hyperlipidemia HPI Details Patient's follow-up visit / consultation today is done over the phone - this is a Telehealth visit Patient's current medications have been reviewed and verified with patient and / or caregiver / proxy and have been updated accordingly in the medication list Patient states that she feels okay She requested for her appointment today to be changed over to a telehealth visit as she is supposedly tied up with something else and would not have been able to make it into the office today otherwise She denies any headaches or dizziness Denies any chest pains, no SOB No nausea/vomiting, no abdominal pain No change in bowel habits noted States that she had her follow up labs done last month and she would like to go over the results of these She also needs her Albuterol inhaler Rx refilled today She would also like to try having her Atorvastatin dosage lowered from 20 mg to 10 mg QD at this time States that she will continue to work on her diet in the meantime and is hoping to still be able to come off her cholesterol medication completely at some point [facility] Medical History Elevated LFTs Skipped heart beats Osteopenia Obesity (BMI 30-39.9) Elevated alanine aminotransferase (ALT) level Impaired fasting glucose Moderate persistent asthma without complication Pure hypercholesterolemia Surgical History Hx of colonoscopy (~01/2015) History of section History of removal of cyst History of umbilical hernia repair History of eye surgery Family History Father CAD (coronary artery disease) Hypertension CVD (cardiovascular disease) Melanoma Rectal bleeding Mother Hypertension CVD (cardiovascular disease) Brother Alive and well Paternal Aunt Cervical cancer Heart disease Maternal Aunt Heart disease Family/Other Colon cancer Paternal Aunt Cervical cancer Paternal Grandmother Stomach cancer Social History Household Members: Family Household Members Other:: son Housing: House Are you a primary critical care physician to a significant other at home: No Do you presently have visiting nurse or other home services: No Alcohol intake: current Alcohol intake frequency: a few times a week Alcohol type: wine Patient Tobacco Use Status: Former Tobacco user e-Cigarette/Vaping Use: Never Used Second Hand Smoke Exposure: Yes service: No Current occupational status: employed 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 1. Little interest or pleasure in doing things: not at all 2. Feeling down, depressed, or hopeless: not at all 3. Trouble falling or staying asleep, or sleeping too much: not at all 4. Feeling tired or having little energy: not at all 5. Poor appetite or overeating: not at all 6. Feeling bad about yourself - or that you are a failure or have let yourself or your family down: not at all 7. Trouble concentrating on things, such as reading the newspaper or watching television: not at all 8. Moving or speaking so slowly that other people could have noticed. Or the opposite - being so fidgety or restless that you have been moving around a lot more than usual: not at all 9. Thoughts that you would be better off or of hurting yourself in some way: not at all Total score: 0 Depression Screening Interpretation: Negative Depression Screening Done: Yes 87260 - PHQ-9 Billing: Yes Source: Developed by Drs. Zhou LKatiuska Torres Kurt Kroenke and colleagues, with an educational leeann from [employer]. Thrive Questionnaire Date Thrive assessed: 05/23/25 I am a: Patient What is your living situation today?: I have a steady place to live Within the past 12 months, did the food you bought not last and you didn't have the money to get more?: Never true Within the past 12 months, did you worry whether your food would run out before you got money to buy more?: Never true Do you have trouble paying for medicines?: No Do you have trouble getting transportation to medical appointments?: No Do you have trouble paying your heating and electricity bill?: No Do you have trouble taking care of your child, family member or friend?: No Do you have trouble with day-to-day activities such as bathing, preparing meals, shopping, managing finances, etc.?: No Are you currently unemployed and looking for a job?: No Are you interested in more education?: No Please select the resources that you would like help with: None Currently or been in a relationship where the following occur: No concerns reported THRIVE Score: 0 AUDIT C Alcohol Use Questionnaire (AUDIT-C) 1. How often do you have a drink containing alcohol?: Monthly or less 2. How many drinks containing alcohol do you have on a typical day when you are drinking?: 1 or 2 3. How often do you have six or more drinks on one occasion?: Monthly Total Score: 3 Score Reviewed/Action Taken: Yes TAHIR-7 AMB Questionnaire TAHIR-7 Date TAHIR - 7 assessed: 05/23/25 Feeling nervous, anxious, or on edge: 0 = Not at all Not being able to stop or control worryin = Not at all Worrying too much about different things: 0 = Not at all Trouble relaxin = Not at all Being so restless that it is hard to sit still: 0 = Not at all Becoming easily annoyed or irritable: 0 = Not at all Feeling afraid as if something awful might happen: 0 = Not at all Total TAHIR-7 score (0-4 normal; 5-9 mild; 10-14 moderate; 15-21 severe): 0 Source: Developed by Katiuska Patino Kurt Kroenke and colleagues, with an educational leeann from [employer]. Review of Systems Const Denies chills, Denies fatigue, Denies fever(s) and Denies headache(s) ENT Denies dysphagia, Denies dizziness, Denies otalgia, Denies headache(s), Denies neck pain, Denies odynophagia and Denies sore throat Card Denies chest pain, Denies irregular heart rhythm, Denies palpitations and Denies dyspnea Resp Denies chest congestion, Denies cough and Denies dyspnea GI Denies abdominal pain, Denies constipation, Denies dysphagia, Denies heartburn, Denies diarrhea, Denies nausea, Denies odynophagia and Denies vomiting Denies urinary frequency, Denies dysuria and Denies urinary urgency Musc Denies back pain, Reports arthralgias (on and off in the left shoulder) and Denies neck pain Skin/Breast Denies rash Neuro Denies dizziness, Denies headache(s) and Denies paresthesias Psych Denies anxiety and Denies depression Endo Denies fatigue and Denies palpitations Jordy/Lymph Denies easy bruising Physical exam (Primary Care) Vital Signs: Physical examination is not performed as visit / consultation today is done over the phone - Telehealth visit All physical findings indicated here, if present, are as per patient's and / or caregivers / proxy's report Tobacco/Smoking Status: Tobacco use Status Tobacco use date assessed 05/23/25 05/23/25 10:26 Patient Tobacco Use Status Former Tobacco user 05/23/25 10:23 e-Cigarette/Vaping Use Never Used 05/23/25 10:23 PHQ-9: PHQ-9 Score PHQ-9: Total score 0 05/23/25 11:53 Depression Screening Interpretation: Negative Thrive Assessment: Date of Thrive Assessment Date Thrive assessed 05/23/25 05/23/25 10:26 Currently or been in a relationship where the following occur: No concerns reported Telehealth Telehealth Telehealth Platform: Telephone Location of provider rendering services: practice address Location of patient: address on file Patient Identification confirmed using: Name, : Yes Telehealth method: voice only Patient verbally consented to treatment: Yes Patient verbally consented to billing insurance company: Yes Patient informed of any privacy concerns related to visit: Yes Minutes spent on Phone/Video with Pt.: 21 Results Reviewed Results Reviewed: Laboratory Tests 04/25/25 05/01/25 06:38 13:05 WBC 4.1 L Hgb 13.4 Hct 40.4 Plt Count 209 Sodium 141 Potassium 4.0 Creatinine 0.91 Estimated GFR > 60 Fasting Glucose 113 H Hemoglobin A1c % 5.7 AST 39 H ALT 64 H Triglycerides 198 H Cholesterol 176 LDL Cholesterol, Calc 92 HDL Cholesterol 45 25-OH Vitamin D Total 67.3 TSH 1.37 Ur Specific [place] 1.010 Urine Protein Negative Urine Glucose (UA) Negative Urine Blood Negative Urine Nitrite Negative Ur Leukocyte Esterase Trace H Coding Level of Care Code Tele Est Pt Level 4 (96227) Complex EM visit Add On G2211 Diagnoses Pure hypercholesterolemia E78.00 Moderate persistent asthma without complication J45.40 Impaired fasting glucose R73.01 Elevated LFTs R79.89 Osteopenia, unspecified location M85.80 Osteopenia location: unspecified Obesity (BMI 30-39.9) E66.9 Additional Codes PHQ-9 - 20664 - PHQ-9 Billing: Yes ([id number]) Assessment & Plan Assessment & Plan (1) Pure hypercholesterolemia: Code(s): E78.00 - Pure hypercholesterolemia, unspecified Category: Medical Plan: Results of her labs done last month reviewed and discussed with patient Reinforced low cholesterol diet Per request, will try lowering her Atorvastatin from 20 mg to 10 mg QD Will recheck her labs and fasting lipids in 3 to 4 months for follow up (2) Moderate persistent asthma without complication: Code(s): J45.40 - Moderate persistent asthma, uncomplicated Category: Medical Plan: Controlled Continue Advair Diskus 250-50 mcg 1 puff BID and Albuterol HFA 108 mcg 2 puffs 4 times a day as needed (Rx refilled) (3) Impaired fasting glucose: Code(s): R73.01 - Impaired fasting glucose Category: Medical Plan: Her HgbA1c was again normal at 5.7% on her recent labs; it was previously at 5.6% a few months ago FBS was up at 113 mg/dl on her recent labs Reinforced low calorie/low carb diet; exercise as tolerated (4) Elevated LFTs: Code(s): R79.89 - Other specified abnormal findings of blood chemistry Category: Medical Plan: Patient is advised that her LFTs are still slightly elevated and are mostly unchanged from previous Discussed again with patient that this is most likely due to a combination of her weight and cholesterol levels as well as her statin Rx but also due to her alcohol intake (she admits to drinking some wine everyday) Her liver fibrosis panel done recently came out normal - F0 Will continue to monitor her LFTs regularly (5) Osteopenia: Code(s): M85.80 - Other specified disorders of bone density and structure, unspecified site Category: Medical Qualifiers: Osteopenia location: unspecified Qualified Code(s): M85.80 - Other specified disorders of bone density and structure, unspecified site Plan: Repeat BMD done in November 2021 revealed (+) osteopenia with a T score of -1.2; baseline BMD done on 03/16/2013 was normal Patient is again encouraged to exercise regularly and stay active to help slow down her BMD decline Continue taking oral Calcium and Vitamin D supplements daily Will continue to monitor her BMD and repeat scan every 2 to 3 years - she will be due for repeat BMD later this year (6) Obesity (BMI 30-39.9): Code(s): E66.9 - Obesity, unspecified Category: Medical Plan: Reinforced diet/exercise as tolerated/lose weight Plan To return as scheduled in August 2025 for her annual physical examination Orders: Orders Comprehensive Newman. Panel Fast 08/12/25 E78.00 - Pure hypercholesterolemia, unspecified, Z00.00 - Encounter for general adult medical examination without abnormal findings Vitamin D 25-OH Total 08/12/25 E55.9 - Vitamin D deficiency, unspecified, Z00.00 - Encounter for general adult medical examination without abnormal findings Complete Blood Count Auto Diff 08/12/25 D64.9 - Anemia, unspecified, Z00.00 - Encounter for general adult medical examination without abnormal findings Lipid Panel 08/12/25 E78.00 - Pure hypercholesterolemia, unspecified, Z00.00 - Encounter for general adult medical examination without abnormal findings Hemoglobin A1c 08/12/25 E11.9 - Type 2 diabetes mellitus without complications, Z00.00 - Encounter for general adult medical examination without abnormal findings TSH reflex Free T4 08/12/25 E78.00 - Pure hypercholesterolemia, unspecified, Z00.00 - Encounter for general adult medical examination without abnormal findings UA CC w/rflx Micro + Cult 08/12/25 R30.0 - Dysuria, Z00.00 - Encounter for general adult medical examination without abnormal findings Medications: Changed From atorvastatin 20 mg PO DAILY 90 days 90 caps 3RF To atorvastatin 10 mg PO DAILY 90 caps 0RF 90 days Refilled albuterol sulfate 90 mcg/actuation 2 puffs inhalation Q6H PRN 8.5 grams 2RF shortness of breath or wheezing J45.40 - Moderate persistent asthma, uncomplicated
--- OUTSIDE RECORDS SUMMARY | 2025-05-23 11:16 | XMS_ITS | Patient Health Record ---
Author Organization [facility] Address [address] [place] [address] Care Team Providers Care Train Caller Name Role Phone Sinan LIRA, [place] Primary Care Provider Tricia Hunt Unavailable [phone] Allergies No Known Allergies Reason For Referral No Information Medications Medication SIG (Take, Route, Frequency, Duration) Notes Start Date End Date Status ProAir HFA 108 (90 Base) MCG/ACT 2 puffs as needed Inhalation every 4 hrs Unknown Advair Diskus 100-50 MCG/DOSE 1 puff Inhalation every 12 hrs Active Cephalexin 500 MG 1 capsule Orally ashley ry 12 hrs; Duration: 7 days Not-Taking Atorvastatin Calcium 20 MG 1 tablet Orally Once a day; Duration: 30 day(s) Active Albuterol Active Flonase 50 MCG/ACT 2 sprays Nasally Onc e a day; Duration: 30 day(s) Unknown Immunizations Vaccine Route Administration [...] W/U Status Risk Notes Problem Hammer toe (817130007) Hammer toe (735.4) Active confirmed Problem Contracture of joint of right foot (disorder) (782141764465759) Contracture , right foot (M24.574) Active confirmed Problem Acquired hammer toe of right foot (4389622028906553 ) Hammer toe of right foot (M20.41) Active confirmed Problem Acquired hammer toe of left foot (2799713444572881 ) Hammer toe of left foot (M20.42) Active confirmed Encounters Encounter Location Date Provider Diagnosis [facility] [place] [address] [place] [address] 08/01/2024 Tircia Alfaro Plan Of Treatment Pending Test Test Name Order Date X ray : Foot, left 3V 06/12/2023 X ray : Foot, right 3V 06/12/2023 X ray : Foot, right 3V 01/22/2023 Insurance Providers Payer Name Payer Address Payer Phone Subscriber Number Group Number Insured Name Patient Relationship to Insured Coverage Start Date Coverage End Date [facility] [address] [place] [address] [id number] Carisa Amado Self - patient is the insured Medical (General) History Medical History History ICD Code asthma chicken pox measles mumps Anxiety Headaches Psoriasis chronic sinusitis Surgical History Surgery Date(Month/Year) section hernia ganglion cyst removal eye surgery 1994
== END 2025-05-23 12:23 | disposition home or self-care (01) ==
LOC: HO.HMCH 10:24
PROVIDERS: PCP Internal Medicine; Visit Provider Internal Medicine
DX: E78.00 Pure hypercholesterolemia, unspecified (principal); J45.40 Moderate persistent asthma, uncomplicated; R73.01 Impaired fasting glucose; R79.89 Other specified abnormal findings of blood chemistry; M85.80 Other specified disorders of bone density and structure, unspecified site; E66.9 Obesity, unspecified

== ENCOUNTER → 2025-05-23 10:24 | Outpatient (BNVA) | payer OTHER, SELFPAY | PROVIDERS: PCP Internal Medicine; Visit Provider Internal Medicine | DX: E78.00 Pure hypercholesterolemia, unspecified (principal); J45.40 Moderate persistent asthma, uncomplicated; R73.01 Impaired fasting glucose; R79.89 Other specified abnormal findings of blood chemistry; M85.80 Other specified disorders of bone density and structure, unspecified site; E66.9 Obesity, unspecified; Z79.899 Other long term (current) drug therapy; Z13.31 Encounter for screening for depression; Z13.30 Encounter for screening examination for mental health and behavioral disorders, unspecified | CPT/HCPCS: 96127 ==

== ENCOUNTER 2025-08-09 06:35 | Outpatient (REF) | payer OTHER, SELFPAY ==
--- OUTSIDE RECORDS SUMMARY | 2025-08-09 06:39 | XMS_ITS | Patient Health Record ---
Author Organization [facility] Address [address] [place] [address] Care Team Providers Care Freight Car Repairer Name Role Phone Sinan LIRA, [place] Primary Care Provider Tricia Hunt Unavailable [phone] Allergies No Known Allergies Reason For Referral [...] W/U Status Risk Notes Problem Hammer toe (232758230) Hammer toe (735.4) Active confirmed Problem Contracture of joint of right foot (disorder) (215854495076721) Contracture , right foot (M24.574) Active confirmed Problem Acquired hammer toe of right foot (1085992016578562 ) Hammer toe of right foot (M20.41) Active confirmed Problem Acquired hammer toe of left foot (7101001638122318 ) Hammer toe of left foot (M20.42) Active confirmed Plan Of Treatment Pending Test Test Name Order Date X ray : Foot, left 3V 06/12/2023 X ray : Foot, right 3V 06/12/2023 X ray : Foot, right 3V 01/22/2023 Insurance Providers Payer Name Payer Address Payer Phone Subscriber Number Group Number Insured Name Patient Relationship to Insured Coverage Start Date Coverage End Date [facility] [address] [facility] [place] [id number] Carisa Amado Self - patient is the insured Medical (General) History Medical History History ICD Code asthma chicken pox measles mumps Anxiety Headaches Psoriasis chronic sinusitis Surgical History Surgery Date(Month/Year) section hernia ganglion cyst removal eye surgery 1994
[2025-08-09 10:20] LABS: Appearance Urine Clear; Glucose Urine UA Negative (Negative); PH 6.5 (5.0-9.0); Specific Gravity - Urine 1.015 (1.005-1.025); UMIC TRIGGER UACC YES
[2025-08-09 10:34] LABS: UACC Culture Trigger YES
[2025-08-09 10:34] LABS: MANUAL DIFF FLAG NO
[2025-08-09 10:43] LABS: Hematocrit 39.8 % (37.0-47.0); Hemoglobin 13.5 g/dl (12.0-16.0); Imm Gran Abs Auto 0.01 X10*3/uL (0.00-0.03); Imm Gran Pct Auto 0.2 % (0.0-0.4); Lymphocytes Absolute Auto 1.9 X10*3/uL (1.2-4.9); Mean Corpuscular HGB Conc 33.9 g/dl (31.0-35.0); Mean Corpuscular Hemoglobin 33.0 pg (27.0-33.0); Mean Corpuscular Volume 97.3 fL (80.0-98.0); NRBC Abs Auto 0.000 X10*3/uL (0.0-0.012); NRBC Pct Auto 0.0 /100WBC (0.0-0.2); Platelet Count 214 X10*3/uL (160-400); Red Blood Count 4.09 X10*6/uL (4.20-5.50); White Blood Count 4.6 X10*3/uL (4.8-10.8)
[2025-08-09 10:51] LABS: Hemoglobin A1C 137.0364 umol/L; Total Hemoglobin (HGBA1C) 3485.6912 umol/L
[2025-08-09 11:50] LABS: Anion Gap 11 (12-20)
[2025-08-09 11:55] LABS: Alanine Aminotransferase 54 U/L (0-31); Albumin Level 4.5 g/dL (3.5-5.0); Alkaline Phosphatase 62 U/L (39-117); Aspartate Amino Transferase 39 U/L (5-31); Blood Urea Nitrogen 19 mg/dL (9-16); Calcium 9.3 mg/dL (8.4-10.2); Carbon Dioxide 27 mmol/L (22-29); Chloride 106 mmol/L (96-108); Cholesterol 188 mg/dL (<200); Estimated Glomerular Filt Rate > 60; HDL Cholesterol 43 mg/dL (>40); Potassium 4.1 mmol/L (3.3-5.1); Sodium 140 mmol/L (135-145); Total Protein 7.0 g/dL (6.5-8.0); Triglycerides 228 mg/dL (<150)
== END 2025-08-09 06:36 | disposition home or self-care (01) ==
LOC: HO.HMGCLDS 06:35
PROVIDERS: PCP Internal Medicine; Visit Provider Internal Medicine
DX: Z00.00 Encounter for general adult medical examination without abnormal findings (principal); E78.00 Pure hypercholesterolemia, unspecified; D64.9 Anemia, unspecified; E55.9 Vitamin D deficiency, unspecified; E11.9 Type 2 diabetes mellitus without complications; R30.0 Dysuria
CPT/HCPCS: 36415; 80053; 80061; 81001; 82306; 83036; 84443; 85025; 87086

== ENCOUNTER 2025-08-18 15:00 | Outpatient (AMB) | payer OTHER, SELFPAY ==
--- OUTSIDE RECORDS SUMMARY | 2025-08-18 15:02 | XMS_ITS | Patient Health Record ---
Author Organization [facility] Address [address] [place] [address] Care Team Providers Care Label Remover Name Role Phone Sinan LIRA, [place] Primary Care Provider Tricia Hunt Unavailable [phone] Allergies No Known Allergies Reason For Referral [...] W/U Status Risk Notes Problem Hammer toe (947030233) Hammer toe (735.4) Active confirmed Problem Contracture of joint of right foot (disorder) (600900607427131) Contracture , right foot (M24.574) Active confirmed Problem Acquired hammer toe of right foot (2531317402337909 ) Hammer toe of right foot (M20.41) Active confirmed Problem Acquired hammer toe of left foot (9158521669028933 ) Hammer toe of left foot (M20.42) Active confirmed Plan Of Treatment Pending Test Test Name Order Date X ray : Foot, left 3V 06/12/2023 X ray : Foot, right 3V 06/12/2023 X ray : Foot, right 3V 01/22/2023 Insurance Providers Payer Name Payer Address Payer Phone Subscriber Number Group Number Insured Name Patient Relationship to Insured Coverage Start Date Coverage End Date [facility] [address] [facility] [place] [id number] Carisa Amado Self - patient is the insured Medical (General) History Medical History History ICD Code asthma chicken pox measles mumps Anxiety Headaches Psoriasis chronic sinusitis Surgical History Surgery Date(Month/Year) section hernia ganglion cyst removal eye surgery 1994
[2025-08-18 15:12] VITALS: BP 110/72; PULSE 57; O2SAT 98; BMI 30.1
--- NOTE | 2025-08-18 15:12 | MHC.PC.OV ---
Vital Signs 08/18/25 15:12 Height 5 ft 7 in Weight 192 lb 4 oz BMI 30.1 BP 110/72 Blood Pressure Location Lt brachial Position Sitting Pulse 57 Pulse Source Pulse Oximeter Pulse Oximetry (%) 98 Oxygen Delivery Method Room Air Intake Visit Reasons: Annual Exam Idea Man Required: No Accompanied by: Self / Same As Patient Allergies No Known Allergies (No Known Allergies*) Allergy (Verified 08/18/25 15:46) Medication List - Last Reconciled 08/18/25 by Rodo Menon MD albuterol sulfate 90 mcg/actuation 2 puffs inhalation Q6H PRN atorvastatin 10 mg PO DAILY 90 days clotrimazole-betamethasone 1-0.05 % 1 appl topical BID 2 weeks fluticasone propion-salmeterol 250-50 mcg/dose 1 ea inhalation Q12H multivitamin 1 tab PO DAILY Tobacco use date assessed: 08/18/25 Dental Screening Dental Screen Date: 08/18/25 Did you have a dental visit in the last 12 months?: Yes Did you have a dental problem in the last 6 months where you did not have access to dental care?: No Was dental information given to patient?: Patient has dentist HPI Annual Exam HPI Details Patient comes in today for her annual physical examination States that she feels okay Denies any headaches or dizziness Denies any chest pains, no SOB No nausea/vomiting, no abdominal pain No change in bowel habits noted Denies any acute urinary symptoms She had her follow up labs done last week - to discuss her results Her mammogram was last done on 11/11/2024, screening colonoscopy was done earlier this year on 01/13/2025 and he will be due for repeat colonoscopy in 5 to 6 years [place] [address] for her yearly gynecology exam Her BMD was last done on 12/05/2021 [facility] Medical History Elevated LFTs Skipped heart beats Osteopenia Obesity (BMI 30-39.9) Elevated alanine aminotransferase (ALT) level Impaired fasting glucose Moderate persistent asthma without complication Pure hypercholesterolemia Surgical History Hx of colonoscopy (~01/2015) History of section History of removal of cyst History of umbilical hernia repair History of eye surgery Family History Father CAD (coronary artery disease) Hypertension CVD (cardiovascular disease) Melanoma Rectal bleeding Mother Hypertension CVD (cardiovascular disease) Brother Alive and well Paternal Aunt Cervical cancer Heart disease Maternal Aunt Heart disease Family/Other Colon cancer Paternal Aunt Cervical cancer Paternal Grandmother Stomach cancer Social History Household Members: Family Household Members Other:: son Housing: House Are you a primary resident care spec to a significant other at home: No Do you presently have visiting nurse or other home services: No Alcohol intake: current Alcohol intake frequency: a few times a week Alcohol type: wine Patient Tobacco Use Status: Former Tobacco user e-Cigarette/Vaping Use: Never Used Second Hand Smoke Exposure: Yes service: No Current occupational status: employed 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 1. Little interest or pleasure in doing things: several days 2. Feeling down, depressed, or hopeless: more than half the days 3. Trouble falling or staying asleep, or sleeping too much: more than half the days 4. Feeling tired or having little energy: more than half the days 5. Poor appetite or overeating: not at all 6. Feeling bad about yourself - or that you are a failure or have let yourself or your family down: more than half the days 7. Trouble concentrating on things, such as reading the newspaper or watching television: not at all 8. Moving or speaking so slowly that other people could have noticed. Or the opposite - being so fidgety or restless that you have been moving around a lot more than usual: not at all 9. Thoughts that you would be better off or of hurting yourself in some way: not at all Total score: 9 Depression Screening Interpretation: Positive Depression Screening Follow-up: Follow-up Visit Requested Depression Screening Done: Yes 55780 - PHQ-9 Billing: Yes Source: Developed by Drs. Zhou Roldan, Katiuska Horn, Brandyn Rizvi and colleagues, with an educational leeann from [employer]. Thrive Questionnaire Date Thrive assessed: 08/18/25 I am a: Patient What is your living situation today?: I have a steady place to live Within the past 12 months, did the food you bought not last and you didn't have the money to get more?: Never true Within the past 12 months, did you worry whether your food would run out before you got money to buy more?: Never true Do you have trouble paying for medicines?: No Do you have trouble getting transportation to medical appointments?: No Do you have trouble paying your heating and electricity bill?: No Do you have trouble taking care of your child, family member or friend?: No Do you have trouble with day-to-day activities such as bathing, preparing meals, shopping, managing finances, etc.?: No Are you currently unemployed and looking for a job?: No Are you interested in more education?: No Please select the resources that you would like help with: None Currently or been in a relationship where the following occur: I choose not to answer THRIVE Score: 0 AUDIT C Alcohol Use Questionnaire (AUDIT-C) 1. How often do you have a drink containing alcohol?: 2-3 times a week 2. How many drinks containing alcohol do you have on a typical day when you are drinking?: 1 or 2 3. How often do you have six or more drinks on one occasion?: Monthly Total Score: 5 Score Reviewed/Action Taken: Yes TAHIR-7 AMB Questionnaire TAHIR-7 Date TAHIR - 7 assessed: 05/23/25 Feeling nervous, anxious, or on edge: 1 = Several days Not being able to stop or control worryin = Several days Worrying too much about different things: 1 = Several days Trouble relaxin = Several days Being so restless that it is hard to sit still: 0 = Not at all Becoming easily annoyed or irritable: 0 = Not at all Feeling afraid as if something awful might happen: 1 = Several days Total TAHIR-7 score (0-4 normal; 5-9 mild; 10-14 moderate; 15-21 severe): 5 Source: Developed by Katiuska Patino Kory, Brandyn Rizvi and colleagues, with an educational leeann from [employer]. Review of Systems Const Denies chills, Denies fatigue, Denies fever(s), Denies headache(s) and Denies malaise Eyes Denies blurry vision, Denies change in vision, Denies irritation and Denies itchy eyes ENT Denies dysphagia, Denies dizziness, Denies otalgia, Denies headache(s), Denies nasal congestion, Denies neck pain, Denies odynophagia, Denies sinus pain and Denies sore throat Card Denies chest pain, Denies rapid heart rate, Denies irregular heart rhythm, Denies palpitations and Denies dyspnea Resp Denies chest congestion, Denies cough, Denies dyspnea and Denies wheezing GI Denies abdominal pain, Denies bloating, Denies constipation, Denies dysphagia, Denies heartburn, Denies diarrhea, Denies nausea, Denies odynophagia and Denies vomiting Denies hematuria, Denies difficulty voiding, Denies dysuria, Denies urinary incontinence and Denies urinary urgency Musc Denies back pain, Denies arthralgias, Denies joint swelling, Denies muscle weakness and Denies neck pain Skin/Breast Denies breast pain, Denies breast mass, Denies change in pigmentation, Denies lesions, Denies rash and Denies unusual bruising Neuro Denies dizziness, Denies headache(s) and Denies paresthesias Psych Denies anxiety and Denies depression Endo Denies fatigue and Denies palpitations Jordy/Lymph Denies easy bruising Aller/Immun Denies itchy eyes and Denies wheezing Physical exam (Primary Care) Vital Signs: Last Vital Signs Pulse 57 08/18/25 15:12 BP 110/72 08/18/25 15:12 Pulse Ox 98 08/18/25 15:12 Oxygen Delivery Method Room Air 08/18/25 15:12 BMI result Body Mass Index 30.1 Tobacco/Smoking Status: Tobacco use Status Tobacco use date assessed 08/18/25 08/18/25 15:20 Patient Tobacco Use Status Former Tobacco user 08/18/25 15:20 e-Cigarette/Vaping Use Never Used 08/18/25 15:20 PHQ-9: PHQ-9 Score PHQ-9: Total score 9 08/18/25 15:51 Depression Screening Interpretation: Positive Depression Screening Follow-up: Follow-up Visit Requested Thrive Assessment: Date of Thrive Assessment Date Thrive assessed 08/18/25 08/18/25 15:20 Currently or been in a relationship where the following occur: I choose not to answer Const General: no acute distress, alert and awake Orientation/consciousness: patient oriented x3 [facility]: Yes normocephalic and Yes atraumatic Ears: external ears normal, TM's normal bilaterally and EAC's normal General nose exam: No nasal discharge present Face and sinus: Yes normal facial exam and Yes sinuses nontender Teeth and gingiva: dentition normal Throat: Yes posterior oropharynx normal and Yes tonsils normal (no TP congestion) Eyes Eyelids: Yes eyelids normal Conjunctivae: conjunctivae normal Pupils: Equal, round and reactive pupils present EOM: EOMs intact bilaterally Neck Neck: Yes no lymphadenopathy and Yes supple Thyroid: Thyroid normal Resp Auscultation: clear to auscultation bilaterally, no rales and no wheezes Cardio Rate: regular rate Rhythm: regular rhythm Heart sounds: no murmurs GI Palpation (GI): Soft to palpation, nontender and No hepatosplenomegaly present Auscultation: normal bowel sounds General: Yes no CVA tenderness Back/Spine/Pelvis Back: no CVA tenderness Thoracic/Lumbar Spine: thoracic and lumbar spine normal to inspection Skin Lesions: no lesions Rashes: no rashes Neuro General: patient oriented x3, moves all extremities, no focal motor deficits and CN's II-XI intact bilaterally Cranial nerves: Yes Equal, round and reactive pupils present Cognition (Neuro): normal cognition Gait exam (Neuro): Normal gait present Extrem General: Yes no clubbing, cyanosis or edema Results Reviewed Results Reviewed: Laboratory Tests 08/09/25 08/09/25 07:17 07:25 WBC 4.6 L Hgb 13.5 Hct 39.8 Plt Count 214 Sodium 140 Potassium 4.1 Creatinine 0.88 Estimated GFR > 60 Fasting Glucose 118 H Hemoglobin A1c % 5.7 Calcium 9.3 AST 39 H ALT 54 H Triglycerides 228 H Cholesterol 188 LDL Cholesterol, Calc 100 H HDL Cholesterol 43 25-OH Vitamin D Total 67.0 TSH 1.29 Ur Specific [place] 1.015 Urine Protein Negative Urine Glucose (UA) Negative Urine Blood Negative Urine Nitrite Negative Ur Leukocyte Esterase Moderate (2+) H Coding Level of Care Code Est Pt Prev Care 40-64y(34745) Diagnoses Annual physical exam Z00.00 Pure hypercholesterolemia E78.00 Moderate persistent asthma without complication J45.40 Impaired fasting glucose R73.01 Elevated LFTs R79.89 Osteopenia, unspecified location M85.80 Osteopenia location: unspecified Obesity (BMI 30-39.9) E66.9 Additional Codes PHQ-9 - 52248 - PHQ-9 Billing: Yes ([id number]) Assessment & Plan Assessment & Plan (1) Annual physical exam: Code(s): Z00.00 - Encounter for general adult medical examination without abnormal findings Category: Medical Plan: Results of her labs done last week reviewed and discussed with patient Her mammogram was last done on 11/11/2024, screening colonoscopy was done earlier this year on 01/13/2025 and he will be due for repeat colonoscopy in 5 to 6 years [place] [address] for her yearly gynecology exam Her BMD was last done on 12/05/2021 (2) Pure hypercholesterolemia: Code(s): E78.00 - Pure hypercholesterolemia, unspecified Category: Medical Plan: She is advised that her cholesterol levels are okay but have increased slightly from previous Reinforced low cholesterol diet Continue Atorvastatin 10 mg QD - dose was lowered at her last visit, per her request Will recheck her labs and fasting lipids in 4 months for follow up (3) Moderate persistent asthma without complication: Code(s): J45.40 - Moderate persistent asthma, uncomplicated Category: Medical Plan: Controlled Continue Advair Diskus 250-50 mcg 1 puff BID and Albuterol HFA 108 mcg 2 puffs 4 times a day as needed (4) Impaired fasting glucose: Code(s): R73.01 - Impaired fasting glucose Category: Medical Plan: Her HgbA1c was again normal at 5.7% on her recent labs; it was previously also at 5.7% a few months ago FBS was up at 118 mg/dl on her recent labs Reinforced low calorie/low carb diet; exercise as tolerated (5) Elevated LFTs: Code(s): R79.89 - Other specified abnormal findings of blood chemistry Category: Medical Plan: Patient is advised that her LFTs are still slightly elevated and are mostly unchanged from previous Discussed again with patient that this is most likely due to a combination of her weight and cholesterol levels as well as her statin Rx but also due to her alcohol intake (she admits to drinking some wine everyday) Her liver fibrosis panel done a few months ago came out normal - F0 Will continue to monitor her LFTs regularly (6) Osteopenia: Code(s): M85.80 - Other specified disorders of bone density and structure, unspecified site Category: Medical Qualifiers: Osteopenia location: unspecified Qualified Code(s): M85.80 - Other specified disorders of bone density and structure, unspecified site Plan: Repeat BMD done in November 2021 revealed (+) osteopenia with a T score of -1.2; baseline BMD done on 03/16/2013 was normal Patient is again encouraged to exercise regularly and stay active to help slow down her BMD decline Continue taking oral Calcium and Vitamin D supplements daily Will continue to monitor her BMD and repeat scan every 2 to 3 years - she is now due for repeat BMD (ordered) (7) Obesity (BMI 30-39.9): Code(s): E66.9 - Obesity, unspecified Category: Medical Plan: Reinforced diet/exercise as tolerated/lose weight Plan Follow up in 4 months Orders: Orders Comprehensive [place]. Panel Fast 4 Months E78.00 - Pure hypercholesterolemia, unspecified Lipid Panel 4 Months E78.00 - Pure hypercholesterolemia, unspecified TSH reflex Free T4 4 Months E78.00 - Pure hypercholesterolemia, unspecified Vitamin D 25-OH Total 4 Months E55.9 - Vitamin D deficiency, unspecified XR DEXA axial skeleton 08/18/25 Z78.0 - Asymptomatic menopausal state Hemoglobin A1c 4 Months E11.9 - Type 2 diabetes mellitus without complications Complete Blood Count Auto Diff 4 Months D64.9 - Anemia, unspecified UA CC w/rflx Micro + Cult 4 Months R30.0 - Dysuria
== END 2025-08-18 16:06 | disposition home or self-care (01) ==
LOC: HO.HMCH 15:01
PROVIDERS: PCP Internal Medicine; Visit Provider Internal Medicine
DX: Z00.00 Encounter for general adult medical examination without abnormal findings (principal); E78.00 Pure hypercholesterolemia, unspecified; E66.9 Obesity, unspecified; Z68.30 Body mass index [BMI] 30.0-30.9, adult; J45.40 Moderate persistent asthma, uncomplicated; R73.01 Impaired fasting glucose; R79.89 Other specified abnormal findings of blood chemistry; M85.80 Other specified disorders of bone density and structure, unspecified site

== ENCOUNTER → 2025-08-18 15:00 | Outpatient (BNVA) | payer OTHER, SELFPAY | PROVIDERS: PCP Internal Medicine; Visit Provider Internal Medicine | DX: Z00.00 Encounter for general adult medical examination without abnormal findings (principal); E78.00 Pure hypercholesterolemia, unspecified; J45.40 Moderate persistent asthma, uncomplicated; R79.89 Other specified abnormal findings of blood chemistry; M85.80 Other specified disorders of bone density and structure, unspecified site; E66.9 Obesity, unspecified; E55.9 Vitamin D deficiency, unspecified; E11.9 Type 2 diabetes mellitus without complications; D64.9 Anemia, unspecified; R30.0 Dysuria; Z78.0 Asymptomatic menopausal state; Z68.30 Body mass index [BMI] 30.0-30.9, adult | CPT/HCPCS: 96127 ==

== ENCOUNTER 2025-11-03 14:27 | Outpatient (REF) | payer OTHER, SELFPAY | END 2025-11-03 14:28 | disposition home or self-care (01) | LOC: HO.LNP 14:27 | PROVIDERS: PCP Internal Medicine; Visit Provider Obstetrics & Gynecology | DX: Z01.419 Encounter for gynecological examination (general) (routine) without abnormal findings (principal); Z11.51 Encounter for screening for human papillomavirus (HPV); R10.20 Pelvic and perineal pain unspecified side | CPT/HCPCS: 87626; 88175 ==

== ENCOUNTER 2025-11-03 14:27 | Outpatient (AMB) | payer OTHER, SELFPAY ==
--- NOTE | 2025-11-03 14:34 | MHC.OFFVIS ---
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 Has been complaining of on and off pelvic cramps bilaterally no associated vaginal discharge or any other concerns. Last urinalysis in 08/10 was negative Last Pap/HPV was negative in 10/06 Last Mammogram was BI-RADS 1 in 11/08 Last Colonoscopy was done in 01/10 [facility] Medical History Elevated LFTs Skipped heart beats Osteopenia Obesity (BMI 30-39.9) Elevated alanine aminotransferase (ALT) level Impaired fasting glucose Moderate persistent asthma without complication Pure hypercholesterolemia Surgical History Hx of colonoscopy (~01/2015) History of section History of removal of cyst History of umbilical hernia repair History of eye surgery Family History Father CAD (coronary artery disease) Hypertension CVD (cardiovascular disease) Melanoma Rectal bleeding Mother Hypertension CVD (cardiovascular disease) Brother Alive and well Paternal Aunt Cervical cancer Heart disease Maternal Aunt Heart disease Family/Other Colon cancer Paternal Aunt Cervical cancer Paternal Grandmother Stomach cancer Social History Household Members: Family Household Members Other:: son Housing: House Are you a primary healthcare administration internship to a significant other at home: No Do you presently have visiting nurse or other home services: No Alcohol intake: current Alcohol intake frequency: a few times a week Alcohol type: wine Patient Tobacco Use Status: Former Tobacco user e-Cigarette/Vaping Use: Never Used Second Hand Smoke Exposure: Yes service: No Current occupational status: employed 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 Current occupational exposures/hazards: No Sexual orientation: Straight/Heterosexual Gender identity: Female Cognitive needs: No Hearing needs: No Vision needs: No Female Reproductive History Menstrual Date of last pap smear: 10/14/21 Date of Mammogram: 11/11/24 Review of Systems Const All systems reviewed & are unremarkable except as noted in HPI and below Card Reports as per HPI Resp Reports as per HPI GI Reports as per HPI and Reports no additional complaints Reports as per HPI Physical Exam Vital Signs: Last Vital Signs BP 110/70 11/03/25 14:40 BMI result Body Mass Index 29.8 Const General: cooperative, healthy appearing and comfortable Chest Chest palpation & inspection: normal inspection of the chest and normal palpation of entire chest wall Breast/axilla inspection: normal inspection of the breasts and normal inspection of the axillae Breast/axilla palpation: normal palpation of the breasts, normal palpation of the axillae and no axillary lymphadenopathy Resp Effort & Inspection: normal respiratory effort Auscultation: clear to auscultation bilaterally Percussion: percussion normal Cardio Palpation: normal PMI Rate: regular rate Rhythm: regular rhythm Heart sounds: no murmurs and no rubs Peripheral pulses: Peripheral pulses 2+ throughout GI Inspection: Yes normal to inspection Palpation (GI): Soft to palpation, nontender, no guarding, not rigid and No hepatosplenomegaly present Percussion: Yes normal to percussion Auscultation: normal bowel sounds Rectal Exam - Female: deferred General: Yes bladder normal to palpation External Female Exam: No lesion Speculum Exam - Vagina: normal appearance of the vagina, normal palpation, normal vaginal discharge and not erythematous Speculum Exam - Cervix: normal appearance of the cervix and normal palpation Bimanual exam- vagina & uterus: normal bimanual exam, normal palpation, uterine size normal, bladder normal to palpation, consistency normal and normal palpation Bimanual Exam- Adnexa, other: normal adnexae, no masses and no tenderness Assessment & Plan Assessment & Plan (1) Well woman exam: Code(s): Z01.419 - Encounter for gynecological examination (general) (routine) without abnormal findings Category: Medical Plan: Co testing done. Counseled the patient about the recommended dietary allowance of 1200 mg of Calcium & 600 IU of vitamin D. Mammogram ordered. The patient was instructed to perform monthly self-breast exams and schedule annual exam in a year. All questions answered and the patient verbalized understanding. (2) Pelvic pain: Code(s): R10.20 - Pelvic and perineal pain unspecified side Category: Medical Plan: Urinallysis done recently was negative. pelvic ultrasound ordered. Discussed with the patient the differential diagnosis of pelvic pain including but not limited to adnexal, uterine masses, pelvic infections (PID), GI the (Irritable bowel syndrome, diverticulitis, others), musculoskeletal, myofascial pain abdominal wall , adhesions, endometriosis, psychological and others causes. Will check results and treat accordingly. All questions answered, the patient verbalized understanding. Instructed the patient to schedule an ultrasound and a follow-up appointment in 2 weeks. All questions answered, the patient verbalized understanding and agreed with the plan. Orders: Orders MM tomosynthesis screening BI Today Z12.31 - Encounter for screening mammogram for malignant neoplasm of breast US pelvic and transvaginal Today R10.20 - Pelvic and perineal pain unspecified side Coding Level of Care Code Est Pt Prev Care 40-64y(67664) Diagnoses Well woman exam Z01.419 Pelvic pain R10.20
[2025-11-03 14:40] VITALS: BP 110/70; BMI 29.8
--- OUTSIDE RECORDS SUMMARY | 2025-11-03 15:56 | XMS_ITS | Patient Health Record ---
Author Organization [facility] Address [address] [place] [address] Care Team Providers Care Lead Clinical Research Coordinator Name Role Phone Sinan LIRA, [place] Primary Care Provider Tricia Hunt Unavailable [phone] Allergies No Known Allergies Reason For Referral [...] W/U Status Risk Notes Problem Hammer toe (304761766) Hammer toe (735.4) Active confirmed Problem Contracture of joint of right foot (disorder) (559124870794498) Contracture , right foot (M24.574) Active confirmed Problem Acquired hammer toe of right foot (7936776045882245 ) Hammer toe of right foot (M20.41) Active confirmed Problem Acquired hammer toe of left foot (8327087907563712 ) Hammer toe of left foot (M20.42) Active confirmed Plan Of Treatment Pending Test Test Name Order Date X ray : Foot, left 3V 06/12/2023 X ray : Foot, right 3V 06/12/2023 X ray : Foot, right 3V 01/22/2023 Insurance Providers Payer Name Payer Address Payer Phone Subscriber Number Group Number Insured Name Patient Relationship to Insured Coverage Start Date Coverage End Date [facility] [address] [facility] [place] [id number] Carisa Amado Self - patient is the insured Medical (General) History Medical History History ICD Code asthma chicken pox measles mumps Anxiety Headaches Psoriasis chronic sinusitis Surgical History Surgery Date(Month/Year) section hernia ganglion cyst removal eye surgery 1994
== END 2025-11-03 15:07 | disposition home or self-care (01) ==
LOC: HO.HWS 14:27
PROVIDERS: PCP Internal Medicine; Visit Provider Obstetrics & Gynecology
DX: Z01.419 Encounter for gynecological examination (general) (routine) without abnormal findings (principal); R10.20 Pelvic and perineal pain unspecified side
CPT/HCPCS: 99396; 99459

== ENCOUNTER 2025-11-15 08:45 | Outpatient (REF) | payer OTHER, SELFPAY ==
--- NOTE | ~2025-11-15 | MM_ITS ---
EXAMINATION: DXA BONE DENSITY AXIAL HISTORY: Z78.0 - Asymptomatic menopausal state TECHNIQUE: [employer] Dual energy absorptiometry (DEXA) of the lumbar spine, total left hip, and femoral neck was performed. COMPARISON: Comparison is made with the prior examination dated 12/05/2021. FINDINGS: The bone mineral density of the lumbar spine is 1.133 g/cm2, corresponding to a T-score of -0.4, and a Z-score of 0.2. This is indicative of normal bone mineral density. This represents a BMD change of -0.3% compared to the prior exam. This is not statistically significant. The bone mineral density of the left total hip is 1.058 g/cm2, corresponding to a T-score of 0.4, and a Z-score of 0.9. This is indicative of normal bone mineral density. This represents a BMD change of 2.0% compared to the prior exam. This is not statistically significant. The bone mineral density of the left femoral neck is 0.869 g/cm2, corresponding to a T-score of -1.2, and a Z-score of -0.4. This is indicative of osteopenia. This represents a BMD change of 0.2% compared to the prior exam. FRACTURE RISK: The FRAX index suggests a ten year probability of major osteoporotic fracture of 11.9%, and of hip fracture 1.0%. MM/XR DEXA axial skeleton IMPRESSION: Based on bone mineral density, and according to World Health Organization (WHO) criteria, the diagnosis is consistent with osteopenia. Statistically, 68% of repeat scans fall within 1 SD (+/- 0.010 g/cm2 for AP spine L1-L4) and 1 SD (+/- 0.012 g/cm2 for femur total) FRAX is a trademark of the [employer], a World Health Organization (WHO) Collaborating Center. Electronically signed by: Zhou Daly MD 11/15/2025 09:24 AM [facility]
--- NOTE | ~2025-11-15 | MM_ITS ---
EXAMINATION: MM SCREENING DIGITAL BREAST TOMOSYNTHESIS, BILATERAL CLINICAL INFORMATION: Screening. Asymptomatic. COMPARISON: Mammography: Comparison is made with available priors TECHNIQUE: Digital breast mammography with tomosynthesis is performed in both the craniocaudal and mediolateral oblique views along with computer-aided detection (CAD). FINDINGS: There are scattered areas of fibroglandular density. There are no significant masses, abnormal calcifications, or other abnormalities. MM/MM tomosynthesis screening BI IMPRESSION: No mammographic evidence of malignancy. ASSESSMENT: BI-RADS Category 1: Negative RECOMMENDATION: Routine annual mammography screening. 1 year F/U This examination should not preclude the clinical evaluation of a suspicious palpable abnormality. This patient's information was entered into a reminder system with a target due date for their next mammogram. Electronically signed by: Ana Mcdowell DO 11/17/2025 04:02 PM [facility]
--- OUTSIDE RECORDS SUMMARY | 2025-11-15 08:50 | XMS_ITS | Patient Health Record ---
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 Name Role Phone Sinan LIRA, [place] Primary Care Provider Tricia Hunt Unavailable [phone] Allergies No Known Allergies Reason For Referral [...] W/U Status Risk Notes Problem Hammer toe (446620011) Hammer toe (735.4) Active confirmed Problem Contracture of joint of right foot (disorder) (601636761134419) Contracture , right foot (M24.574) Active confirmed Problem Acquired hammer toe of right foot (4411901307242381 ) Hammer toe of right foot (M20.41) Active confirmed Problem Acquired hammer toe of left foot (0894476382421740 ) Hammer toe of left foot (M20.42) Active confirmed Plan Of Treatment Pending Test Test Name Order Date X ray : Foot, left 3V 06/12/2023 X ray : Foot, right 3V 06/12/2023 X ray : Foot, right 3V 01/22/2023 Insurance Providers Payer Name Payer Address Payer Phone Subscriber Number Group Number Insured Name Patient Relationship to Insured Coverage Start Date Coverage End Date [facility] [address] [facility] [place] [id number] [phone] [id number] Carisa Amado Self - patient is the insured Medical (General) History Medical History History ICD Code asthma chicken pox measles mumps Anxiety Headaches Psoriasis chronic sinusitis Surgical History Surgery Date(Month/Year) section hernia ganglion cyst removal eye surgery 1994
== END 2025-11-15 08:46 | disposition home or self-care (01) ==
LOC: HO.MAMMO 08:45
PROVIDERS: PCP Internal Medicine; Visit Provider Internal Medicine
DX: Z12.31 Encounter for screening mammogram for malignant neoplasm of breast (principal); Z78.0 Asymptomatic menopausal state
CPT/HCPCS: 77063; 77067; 77080

== ENCOUNTER → 2025-11-15 09:15 | Outpatient (BNV) | payer OTHER, SELFPAY | PROVIDERS: PCP Internal Medicine; Visit Provider Radiology Diagnostic Radiology | DX: E28.39 Other primary ovarian failure (principal) | CPT/HCPCS: 77080 ==